=== PATIENT | female | born 1945 | race Caucasian/White ===

== ENCOUNTER 2018-03-04 09:07 | Emergency (ER) | payer MEDICARE ==
[~2018-03-04] VITALS: Ht 165.1 cm; Wt 115.0 kg
[2018-03-04 09:11] VITALS: Ht 165.1 cm; Wt 115.0 kg
[2018-03-04] MEDS ORDERED: LEVO-T100 MCG (09:14)
[2018-03-04] MEDS ORDERED: TOPROL XL50 MG (09:14)
[2018-03-04] MEDS ORDERED: CELEXA40 MG (09:14)
[2018-03-04] MEDS ORDERED: BUSPAR 15 MG TA15 MG (09:14)
[2018-03-04] MEDS ORDERED: MYSOLINE250 MG (09:15)
[2018-03-04] MEDS ORDERED: ZOCOR20 MG (09:15)
[2018-03-04] MEDS ORDERED: GLUCOPHAGE500 MG (09:15)
[2018-03-04 09:41] LABS: BASOPHILS 0.3 % (0-2); EOSINOPHILS 3.9 % (0-7); HEMATOCRIT 50.4 % (36.0-48.0); HEMOGLOBIN 16.3 g/dL (12-16); IMMATURE GRANULOCYTES 0.2 % (0-5); LYMPHOCYTES 32.7 % (15-50); MCH 28.6 pg (26.0-34.0); MCHC 32.3 g/dL (31.0-37.0); MCV 88.6 fL (80.0-100.0); MEAN PLATELET VOLUME 10.5 fL (7.4-10.4); MONOCYTES 10.4 % (2-11); NEUTROPHILS 52.5 % (40-80); PLATELET COUNT 92 10x3/uL (130-400); RBC 5.69 10x6/uL (4.00-5.40); RDW 14.4 % (11.5-14.5); WBC 6.2 10x3/uL (4.8-10.8)
[2018-03-04 10:08] LABS: ALBUMIN 3.4 g/dL (3.4-5.0); ALKALINE PHOSPHATASE 79 U/L (46-116); ALT (SGPT) 24 U/L (10-68); CALC OSMOLALITY 286 mosm/kg (275-300); CALCIUM 9.4 mg/dL (8.5-10.1); CARBON DIOXIDE 33.8 mmol/L (21.0-32.0); CHLORIDE - SERUM 103 mmol/L (98-107); CREATININE - SERUM 1.1 mg/dL (0.6-1.3); GLUCOSE 189 mg/dL (74-106); POTASSIUM - SERUM 3.3 mmol/L (3.5-5.1); PROTEIN - SERUM 7.5 g/dL (6.4-8.2); SODIUM 142 mmol/L (136-145); UREA NITROGEN 10 mg/dL (7-18); eGFR NON AFRICAN AMERICAN 51 mL/min (90-120)
[2018-03-04 10:20] LABS: CKMB 1.3 U/L (0.0-3.6); CREATINE KINASE 86 UL (21-215); PRO BNP 147 pg/mL (0-125)
[2018-03-04 10:21] LABS: TROPONIN-I < 0.017 ng/mL (0.000-0.060)
[2018-03-04 10:56] LABS: PLATELET ESTIMATE DECREASED
[2018-03-04 11:41] VITALS: BP 161/84
== END 2018-03-04 11:42 | disposition home or self-care (01) ==
LOC: D.ER 09:07
PROVIDERS: Family Medicine
DX: R00.2 Palpitations (principal); I10 Essential (primary) hypertension; E11.9 Type 2 diabetes mellitus without complications; Z86.79 Personal history of other diseases of the circulatory system

== ENCOUNTER 2019-03-31 12:47 | Inpatient (IN) | payer MEDICARE ==
[~2019-03-31] VITALS: Ht 165.1 cm; Wt 117.9 kg
[~2019-03-31 12:47] MED LIST: BUSPAR 15 MG TA15 MG PO; CELEXA40 MG PO; GLUCOPHAGE500 MG PO; LEVO-T100 MCG PO; MYSOLINE250 MG PO; TOPROL XL50 MG PO; ZOCOR20 MG
[2019-03-31] MEDS ORDERED: MOBIC7.5 MG PO (12:56)
[2019-03-31] MEDS ORDERED: KLONOPIN1 MG PO (12:57)
[2019-03-31] MEDS ORDERED: VITAMIN D31000 UNI2 PO (12:57)
[2019-03-31] MEDS ORDERED: UNISOM SLEEP AI25 MG PO (12:58)
[2019-03-31] MEDS ORDERED: HYDROCODON-ACE1 EA10 PO (12:58)
--- NOTE | 2019-03-31 13:18 | NUR ---
LABS DRAWN INCLUDING BC X 2
[2019-03-31 13:40] LABS: BASOPHILS 0.2 % (0-2); EOSINOPHILS 0.4 % (0-7); HEMATOCRIT 47.7 % (36.0-48.0); HEMOGLOBIN 15.2 g/dL (12-16); IMMATURE GRANULOCYTES 0.2 % (0-5); LYMPHOCYTES 13.9 % (15-50); MCHC 31.9 g/dL (31.0-37.0); MCV 94.1 fL (80.0-100.0); MEAN PLATELET VOLUME 11.9 fL (7.4-10.4); MONOCYTES 9.4 % (2-11); NEUTROPHILS 75.9 % (40-80); PLATELET COUNT 86 10x3/uL (130-400); RBC 5.07 10x6/uL (4.00-5.40); RDW 14.7 % (11.5-14.5); WBC 10.8 10x3/uL (4.8-10.8)
[2019-03-31 13:53] LABS: ANION GAP 7.6 mmol/L (8-16); BILIRUBIN - TOTAL 0.6 mg/dL (0.2-1.3); CALCIUM 9.1 mg/dL (8.5-10.1); CARBON DIOXIDE 36.3 mmol/L (21.0-32.0); POTASSIUM - SERUM 4.9 mmol/L (3.5-5.1)
[2019-03-31 14:05] VITALS: BP 173/92
[2019-03-31 14:24] LABS: APPEARANCE CLEAR (CLEAR); BACTERIA FEW /hpf (NONE SEEN); BILIRUBIN NEGATIVE (NEGATIVE); COLOR YELLOW (YELLOW); EPITHELIAL CELLS RARE /hpf (0-5); GLUCOSE NEGATIVE (NEGATIVE); KETONE NEGATIVE (NEGATIVE); MUCUS <1+ /lpf (NONE SEEN); NITRITE NEGATIVE (NEGATIVE); PROTEIN NEGATIVE (NEGATIVE); RED CELLS - URINE 0-5 /hpf (0-5); SPECIFIC GRAVITY 1.015 (1.005-1.020); UROBILINOGEN NORMAL (NORMAL)
[2019-03-31 14:59] VITALS: BP 160/83
[2019-03-31 15:20] LABS: PLATELET ESTIMATE DECREASED
--- NOTE | 2019-03-31 16:45 | NUR ---
REPORT TO KARINA MISTRY BY SBAR FORMAT
[2019-03-31 16:50] VITALS: BP 148/64
--- NOTE | 2019-03-31 16:50 | NUR ---
TRANSPORTED TO FLOOR, CONDITION STABLE. IV AZITHROMYCIN INFUSING VIA PUMP UPON TRANSPORT TO FLOOR
--- NOTE | 2019-03-31 16:59 | NUR ---
PT ARRIVES TO ROOM VIA STRETCHER AAO X 4 FAMILY IS AT BEDSIDE. PT REPORTS NAUSEA BUT DENIES VOMITING. TI ALARM IS ON AND WORKING. BED IS IN THE LOWEST POSITION CALL LIGHT AND BEDSIDE TABLE ARE WITHIN REACH. SIDE RAILS X 2. WILL CONT TO MONITOR.
[2019-03-31 17:15] VITALS: BP 161/85; BMI 43.3
--- NOTE | 2019-03-31 17:47 | NUR ---
PT IS RESTING WITH EYES CLOSED. PT IS EASILY AROUSED WITH VERBAL STIMULATION, BUT QUICKLY RETURNS TO A RESTING STATE. PT IS UNABLE TO ANSWER SUICIDE SCREENING APPROPRIATELY AT THIS TIME. WILL CONT TO ATTEMPT. BED IS IN THE LOWEST POSITION. CALL LIGHT AND BED SIDE TABLE ARE WITHIN REACH. SIDE RAILS X 2. TI ALARM IS ON AND WORKING. FAMILY IS AT BEDSIDE.
[2019-03-31 20:00] VITALS: BP 144/80
--- NOTE | 2019-03-31 21:00 | NUR ---
FSBS 133 NO INSULIN GIVEN AT THIS TIME PER SS.
--- NOTE | 2019-03-31 21:30 | NUR ---
HELPED PT TO THE BATHROOM. ASSIST X2. PT UNSTEADY GAIT. WILL GET WALKER FOR THE NEXT TIME.
--- NOTE | 2019-03-31 23:51 | NUR ---
PT RESTING IN BED. ALERT AND ORIENTED NO SIGNS OF DISTRESS. BREATHING EVEN AND UNLABORED. IV SITE RT HAND SL. WILL CONTINUE PLAN OF CARE. FAMILY AT BEDSIDE. BED LOWERED AND LOCKED. CALL LIGHT IN REACH.
[2019-04-01] VITALS: BP 106/57
[2019-04-01 04:00] VITALS: BP 156/97
--- NOTE | 2019-04-01 06:31 | NUR ---
I have reviewed this patient and I concur with the Shift Assessment completed by the Licensed Practical Nurse today this shift.
--- NOTE | 2019-04-01 06:31 | NUR ---
FSBS 120 NO INSULIN GIVEN AT THIS TIME PER SS.
[2019-04-01 06:54] LABS: ALBUMIN 2.6 g/dL (3.4-5.0); ANION GAP 10.1 mmol/L (8-16); BILIRUBIN - TOTAL 0.57 mg/dL (0.2-1.3); CALCIUM 8.8 mg/dL (8.5-10.1); CARBON DIOXIDE 34.3 mmol/L (21.0-32.0); CREATININE - SERUM 0.8 mg/dL (0.6-1.3); POTASSIUM - SERUM 4.4 mmol/L (3.5-5.1); PROTEIN - SERUM 6.4 g/dL (6.4-8.2)
[2019-04-01 06:56] LABS: BASOPHILS 0.2 % (0-2); EOSINOPHILS 1.3 % (0-7); HEMOGLOBIN 14.2 g/dL (12-16); IMMATURE GRANULOCYTES 0.1 % (0-5); LYMPHOCYTES 16.6 % (15-50); MCHC 31.6 g/dL (31.0-37.0); MCV 94.9 fL (80.0-100.0); MEAN PLATELET VOLUME 11.8 fL (7.4-10.4); MONOCYTES 10.8 % (2-11); PLATELET COUNT 92 10x3/uL (130-400); RBC 4.74 10x6/uL (4.00-5.40); RDW 14.8 % (11.5-14.5); WBC 9.8 10x3/uL (4.8-10.8)
--- NOTE | 2019-04-01 09:00 | NUR ---
ALERT AND ORIENTED SITTING UP IN CHAIR. RESP. EVEN AND UNALBORED WITH BREATH SOUNDS DIMINISHED X4 POSTERIOR. TREMORS NOTED WITH TELEMETRY INTACT. FAMILY PRESENT AND INSTRUCTED TO USE CALL LIGHT FOR ASSIST.
[2019-04-01 13:32] VITALS: BP 175/79
[2019-04-01 14:04] VITALS: Ht 165.1 cm; Wt 117.9 kg
[2019-04-01 14:56] LABS: CKMB 0.9 U/L (0.0-3.6); CREATINE KINASE 53 UL (21-215)
[2019-04-01 18:19] VITALS: BP 117/61
--- NOTE | 2019-04-01 21:00 | NUR ---
FSBS 111 NO INSULIN GIVEN PER SS.
[2019-04-01 21:13] VITALS: BP 152/76
--- NOTE | 2019-04-02 00:19 | NUR ---
PT RESTING IN BED. EYES CLOSED. NO SIGNS OF DISTRESS. BREATHING EVEN AND UNLABORED. WILL CONTINUE PLAN OF CARE. CALL LIGHT IN REACH. BED LOWERED AND LOCKED.
[2019-04-02 05:10] VITALS: BP 177/84
--- NOTE | 2019-04-02 06:15 | NUR ---
FSBS 102 NO INSULIN NEEDED AT THIS TIME PER SS.
[2019-04-02 07:09] LABS: BASOPHILS 0.6 % (0-2); EOSINOPHILS 5.3 % (0-7); HEMATOCRIT 46.5 % (36.0-48.0); HEMOGLOBIN 14.2 g/dL (12-16); IMMATURE GRANULOCYTES 0.2 % (0-5); LYMPHOCYTES 20.4 % (15-50); MCH 29.5 pg (26.0-34.0); MCHC 30.5 g/dL (31.0-37.0); MCV 96.5 fL (80.0-100.0); MEAN PLATELET VOLUME 10.5 fL (7.4-10.4); MONOCYTES 11.7 % (2-11); NEUTROPHILS 61.8 % (40-80); PLATELET COUNT 88 10x3/uL (130-400); RBC 4.82 10x6/uL (4.00-5.40)
[2019-04-02 07:18] LABS: WBC 5.5 10x3/uL (4.8-10.8)
[2019-04-02 07:25] LABS: PLATELET ESTIMATE DECREASED
--- NOTE | 2019-04-02 08:04 | NUR ---
ALERT AND ORIENTED X 3. LUNGS CLEAR BILATERALLY IN ALL DE [place]. HEART SOUNDS S1 AND S2 HEARD IN ALL [place]. BOWEL SOUNDS ACTIVE X 4. SKIN INTACT WITHOUT REDNESS. DENIES PAIN. DENIES NEEDS. DAUGHTER IN CHAIR AT BEDSIDE. BED LOW. CALL GAMEZ AND PERSONAL ITEMS IN REACH. WILL CONTINUE TO MONITOR.
[2019-04-02 08:11] LABS: CALC OSMOLALITY 275 mosm/kg (275-300); CALCIUM 8.4 mg/dL (8.5-10.1); CARBON DIOXIDE 28.3 mmol/L (21.0-32.0); CHLORIDE - SERUM 101 mmol/L (98-107); CKMB 1.2 U/L (0.0-3.6); CREATINE KINASE 88 UL (21-215); CREATININE - SERUM 0.8 mg/dL (0.6-1.3); GLUCOSE 92 mg/dL (74-106); POTASSIUM - SERUM 4.6 mmol/L (3.5-5.1); SODIUM 138 mmol/L (136-145); TROPONIN-I 0.131 ng/mL (0.000-0.060); UREA NITROGEN 13 mg/dL (7-18); eGFR NON AFRICAN AMERICAN 74 mL/min (90-120)
[2019-04-02 08:45] VITALS: BP 154/75
--- NOTE | 2019-04-02 09:54 | NUR ---
ALERT AND ORIENTED X 3. SITTING IN CHAIR AT BEDSIDE. LUNGS CLEAR BILATERALLY IN ALL DE [place] CRU[place]. HEART SOUNDS S1 AND S2 HEARD IN ALL DE [place]. BOWEL SOUNDS ACTIVE X 4. SKIN INTACT WITHOUT REDNESS. DENIES PAIN. DENIES NEEDS. DAUGHTER AT BEDSIDE. BED LOW. CALL GAMEZ AND PERSONAL ITEMS IN REACH. WILL CONTINUE TO MONITOR.
[2019-04-02 12:41] VITALS: BP 135/73
--- NOTE | 2019-04-02 13:52 | NUR ---
RESTING IN BED. DENIES PAIN. DENIES NEEDS. WILL CONTINUE TO MONITOR.
--- NOTE | 2019-04-02 15:46 | NUR ---
IV INFILTRATED TO RIGHT HAND. REMOVED WITH TIP INTACT. RESITED TO [facility].
[2019-04-02 16:18] VITALS: BP 117/63
--- NOTE | 2019-04-02 19:15 | NUR ---
RECEIVED CARE FROM DAY NURSE. SITTING UP IN BED WITH DAUGHTER AT SIDE. REPORTS NO NEEDS AT THIS TIME. CALL LIGHT AT SIDE. IV SL TO LEFT FA.
[2019-04-02 19:51] VITALS: BP 127/69
--- NOTE | 2019-04-02 20:03 | MORECARE ---
CASE MANAGEMENT DISCHARGE SUMMARY PATIENT: JAZMINE BALLARD UNIT: [id number] ADM DATE: 03/31/19 AGE: 74 : 44 SEX: F ROOM/BED: D.2232 AUTHOR: KAYLEY PEARCE PHYSICIAN: REFERRING PHYSICIAN: FLAKITA NAIDU MD DATE OF SERVICE: 04/02/19 Discharge Plan Patient Name: JAZMINE BALLARD Facility: [facility]:[place] : 1945 Planned Disposition: Home with Home Health Anticipated Discharge Date: Discharge Date: Expected LOS: Initial Reviewer: [email or web address] Initial Review Date: 04/02/2019 Generated: 04/02/19 9:03 pm Patient Name: JAZMINE BALLARD Page [id number] at 2002 All edits/amendments must be made on the electronic document DICTATION DATE: 04/02/192002 TRAP OPERATOR: MARY 04/02/192002 RPT#: [id number] NC DATE: STATUS: ADM IN [facility] [address] [place] [address] END OF REPORT
--- NOTE | 2019-04-02 20:10 | MORECARE ---
CASE MANAGEMENT DISCHARGE SUMMARY PATIENT: JAZMINE BALLARD UNIT: [id number] ADM DATE: 03/31/19 AGE: 74 : 44 SEX: F ROOM/BED: D.2232 AUTHOR: KAYLEY PEARCE PHYSICIAN: REFERRING PHYSICIAN: FLAKITA NAIDU MD DATE OF SERVICE: 04/02/19 Discharge Plan Patient Name: JAZMINE BALLARD Facility: [facility]:[place] : 1945 Planned Disposition: Home with Home Health Anticipated Discharge Date: Discharge Date: Expected LOS: Initial Reviewer: [email or web address] Initial Review Date: 04/02/2019 Generated: 04/02/19 9:09 pm DCPIA - Discharge Planning Initial Assessment Updated by [email or web address]: Brianna Valentino on 04/02/19 8:05 pm * Is the patient Alert and Oriented? Yes * How many steps to enter\exit or inside your home? ramp/rail * PCP DR HAY * [facility]acy [facility] [address] [facility] * Preadmission Environment Home with Family * ADLs Partial Dependent * Partial ADLs (Assistance needed) Bathing * Equipment Cane Oxygen Walker * Other Equipment [facility] CANE, WALKER AND OLD SHOWER CHAIR * List name and contact numbers for known caregivers / representatives who currently or will assist patient after discharge: ASH SANTOS- [phone] * Verbal permission to speak to the caregivers and representatives has been obtained from the patient. Yes * Community resources currently utilized Home Health * Please name any agencies selected above. [facility] SKILLED NURSE WOULD BE HELPFUL AT DISCHARGE * Additional services required to return to the preadmission environment? Yes * Can the patient safely return to the preadmission environment? Yes * Has this patient been hospitalized within the prior 30 days at any hospital? No Last DP export: 04/02/19 7:03 pm Patient Name: JAZMINE BALLARD Page [phone] at 2009 All edits/amendments must be made on the electronic document DICTATION DATE: 04/02/192008 CLINICAL DATA MANAGEMENT DIRECTOR: MARY 04/02/192008 RPT#: [id number] DC DATE: STATUS: ADM IN [facility] [address] [place] [address] END OF REPORT
--- NOTE | 2019-04-02 20:16 | MORECARE ---
CASE MANAGEMENT DISCHARGE SUMMARY PATIENT: JAZMINE BALLARD UNIT: [id number] ADM DATE: 03/31/19 AGE: 74 : 44 SEX: F ROOM/BED: D.2232 AUTHOR: RAMSES,DOC PHYSICIAN: REFERRING PHYSICIAN: FLAKITA NAIDU MD DATE OF SERVICE: 04/02/19 Discharge Plan Patient Name: JAZMINE BALLARD Facility: [facility]:[place] : 1945 Planned Disposition: Home with Home Health Anticipated Discharge Date: Discharge Date: Expected LOS: Initial Reviewer: [email or web address] Initial Review Date: 04/02/2019 Generated: 04/02/19 9:16 pm Comments DCP- Discharge Planning Updated by [email or web address]: Brianna Valentino on 04/02/19 7:[address] CM MET WITH THE PATIENT IN HER ROOM. CM INTRODUCED SELF AND EXPLAINED MY ROLE. PATIENT'S DAUGHTER AND SON IN LAW WERE AT THE BEDSIDE. PATIENT STATED THEY LIVE ME. PATIENT GAVE PERMISSION TO DSCUSS DISCHARGE PLANNING WITH THEM PRESENT AT THE BEDSIDE. THE PATIENT LIVES IN HER OWN HOME. SHE HAS A RAMP W/ RAILINGS TO ENTER. SHE IS PRESENTLY RECEIVING PHYSICAL THERAPY W/ [facility]. WE DISCUSSED POSSIBLE CUSTODIAL AFTER DISCHARGE. HER DAUGHTER FELT THAT WOULD BE HELPFUL. PATIENT DID AGREE. SHE DOES NOT LIKE TOO MANY PEOPLE IN HER HOME. DME- CANE. WALKER OXYGEN, STATIONARY UNIT AND AN OLD SHOWER CHAIR. SHE STATES SHE DOES HAVE DIFFICULTY GETTING INTO THE SHOWER. PH[facility]ACY- [facility] [address] [facility] [employer]. PHONE NUMBER [phone]. THE PATIENT WILL HAVE TRANSPORTATION TO HOME. CM TO FOLLOW TO ASSIST W/ DISCHARGES. DCPIA - Discharge Planning Initial Assessment Updated by [id number]: Brianna Valentino on 04/02/19 8:05 pm * Is the patient Alert and Oriented? Yes * How many steps to enter\\exit or inside your home? ramp/rail * PCP DR HAY * Pharmacy [facility] [address] * Preadmission Environment Home with Family * ADLs Partial Dependent * Partial ADLs (Assistance needed) Bathing * Equipment Cane Oxygen Walker * Other Equipment HAS OXYGEN FROM [facility] HAS CANE, WALKER AND OLD SHOWER CHAIR * List name and contact numbers for known caregivers / representatives who currently or will assist patient after discharge: ASH WOLF- DAUGHTER- [phone] * Verbal permission to speak to the caregivers and representatives has been obtained from the patient. Yes * Community resources currently utilized Home Health * Please name any agencies selected above. [facility] SKILLED NURSE WOULD BE HELPFUL AT DISCHARGE * Additional services required to return to the preadmission environment? Yes * Can the patient safely return to the preadmission environment? Yes * Has this patient been hospitalized within the prior 30 days at any hospital? No Last DP export: 04/02/19 7:10 pm Patient Name: JAZMINE BALLARD Page [phone] at 2016 All edits/amendments must be made on the electronic document DICTATION DATE: 04/02/192015 METAL RECLAMATION KETTLE TENDER: MARY 04/02/192015 RPT#: [id number] DC DATE: STATUS: ADM IN [facility] [address] [place] [address] END OF REPORT
[2019-04-03 04:54] VITALS: BP 150/82
[2019-04-03 07:02] LABS: BASOPHILS 0.4 % (0-2); HEMATOCRIT 46.4 % (36.0-48.0); HEMOGLOBIN 14.5 g/dL (12-16); IMMATURE GRANULOCYTES 0.2 % (0-5); LYMPHOCYTES 24.9 % (15-50); MCH 29.8 pg (26.0-34.0); MCHC 31.3 g/dL (31.0-37.0); MCV 95.3 fL (80.0-100.0); MONOCYTES 10.8 % (2-11); NEUTROPHILS 58.7 % (40-80); RBC 4.87 10x6/uL (4.00-5.40); RDW 14.5 % (11.5-14.5)
[2019-04-03 07:04] LABS: PLATELET COUNT 111 10x3/uL (130-400)
[2019-04-03 07:35] LABS: CALC OSMOLALITY 280 mosm/kg (275-300); CALCIUM 8.7 mg/dL (8.5-10.1); CHLORIDE - SERUM 99 mmol/L (98-107); CKMB 1.1 U/L (0.0-3.6); CREATINE KINASE 71 UL (21-215); CREATININE - SERUM 0.9 mg/dL (0.6-1.3); GLUCOSE 101 mg/dL (74-106); POTASSIUM - SERUM 4.1 mmol/L (3.5-5.1); SODIUM 141 mmol/L (136-145); UREA NITROGEN 12 mg/dL (7-18); eGFR NON AFRICAN AMERICAN 65 mL/min (90-120)
[2019-04-03 07:36] LABS: CARBON DIOXIDE 35.6 mmol/L (21.0-32.0); TROPONIN-I 0.115 ng/mL (0.000-0.060)
[2019-04-03 07:47] VITALS: BP 149/68
--- NOTE | 2019-04-03 09:00 | NUR ---
PT RESTING IN RECLINER AT BEDSIDE NO SIGNS OF DISTRESS NOTED STATED "I REST BETTER SITTING UP IN THE CHAIR" NO NEEDS EXPRESSED AT THIS TIME FAMILY AT BEDSIDE CL IN REACH
[2019-04-03] MEDS ORDERED: MUCINEX600 MG PO (10:14)
[2019-04-03] MEDS ORDERED: FLORAJEN3 CAPS460 MG PO (10:14)
[2019-04-03] MEDS ORDERED: ZITHROMAX500 MG PO (10:15)
[2019-04-03] MEDS ORDERED: OMNICEF300 MG PO (10:15)
--- NOTE | 2019-04-03 10:48 | CN ---
PATIENT NAME:JAZMINE BALLARD MEDICAL RECORD: [id number] : 43 LOCATION:D.MS [place]2232 ADMIT DATE: 03/31/19 ACCOUNT: [id number] CONSULTING PHYSICIAN: MACARENA CARDONA MD REFERRING PHYSICIAN: FLAKITA NAIDU MD DATE OF CONSULTATION: 04/02/2019 HISTORY OF PRESENT ILLNESS: A 74-year-old female with known history of coronary artery disease, status post intervention via Dr. Dawkins. She had actually been doing well from a cardiovascular standpoint, but began feeling poorly with dyspnea and chest tightness, was found to have pneumonitis. Subsequently was found to have elevated cardiac enzymes consistent with NSTEMI. We are asked to see her concerning her cardiovascular status. PAST MEDICAL HISTORY: Includes: 1. History of hypertension. 2. Hyperlipidemia. 3. Coronary artery disease as described above. 4. Obstructive sleep apnea. 5. Reactive airway disease. ALLERGIES: IODINE AND ASPIRIN. MEDICATIONS: Typically include metformin 500 p.o. b.i.d., Synthroid 100 mcg every day, Mobic 15 mg p.o. daily, Klonopin 1 mg t.i.d., primidone 250 b.i.d., Celexa 40 every day. SOCIAL HISTORY: Nonsmoker, nondrinker. Easily able to take care of all her ADLs. REVIEW OF SYSTEMS: The patient reports easy bruising but reports no swollen glands. The patient reports no fever, no night sweats, no significant weight gain, no significant weight loss. No significant exercise tolerance. The patient reports no dry eyes, no irritation, no vision change. Patient reports no difficulty hearing and no ear pain. Patient reports no frequent nose bleeds or nose and sinus problems. Patient reports on arm pain on exertion. No shortness of breath while lying down. No history of heart murmur. Patient reports no cough, no wheezing or coughing up blood. Patient reports no abdominal pain, no vomiting. Normal appetite. No diarrhea and not vomiting blood. No nausea and no constipation. Patient reports no incontinence. No difficulty urinating. No hematuria. No increased frequency. Patient reports no muscle aches. No weakness, no arthralgias, no back pain. No swelling of the extremities. Patient reports no abnormal mole, no jaundice, no rashes. Reports no loss of consciousness. No weakness and no numbness. No seizures, dizziness, or headaches. The patient reports no depression, no sleep disturbance, feeling safe in a relationship and no alcohol abuse. Patient reports on fatigue. Reports no runny nose or sinus pressure. No itching, no hives, and no frequent sneezing. PHYSICAL EXAMINATION: GENERAL: Pleasant female, in no acute distress, appears stated age. VITAL SIGNS: Blood pressure 154/74, pulse 71 and regular. HEENT: Normocephalic, atraumatic. NECK: No bruits are noted. HEART: Regular. No obvious gallops. CONSULT REPORT [id number] JAZMINE BALLARD LUNGS: Decreased air excursion. ABDOMEN: Soft, nontender. EXTREMITIES: Pulses are 2+ with no edema. IMPRESSION: Xap-FY-oggjcoxpm myocardial infarction, difficult to say if this is type 1 versus type 2 with increased demand secondary to underlying pneumonitis. We will let recover from current admitting illness. Will need evaluation of coronary anatomy at some point. TRANSINT:[id number] Voice Confirmation ID: [id number] DOCUMENT ID: [id number] MACARENA CARDONA MD at 1048 CC: [id number] DICTATION DATE: 04/02/19 1235 POST DOCTORAL FELLOW: 04/02/19 1424 ADM IN [facility] [address] [place] [id number]
--- NOTE | 2019-04-03 12:30 | NUR ---
IV DC WITH CATH INTACT, DC INSTRUICTIONS GIVEN PT VERABLIZES UNDERSTANDING NO CONCERNS EXPRESSED, LEAVING VIA WHEELCHAIR VIA HOSPITAL STAFF VIA PRIVATE VECHILE IN STABLE CONDITON
--- NOTE | 2019-04-03 14:08 | MORECARE ---
CASE MANAGEMENT DISCHARGE SUMMARY PATIENT: JAZMINE BALLARD UNIT: [id number] ADM DATE: 03/31/19 AGE: 74 : 44 SEX: F ROOM/BED: D.2232 AUTHOR: RAMSES,DOC PHYSICIAN: REFERRING PHYSICIAN: FLAKITA NAIDU MD DATE OF SERVICE: 04/03/19 Discharge Plan Patient Name: JAZMINE BALLARD Facility: [facility]:[place] : 1945 Planned Disposition: Home with Home Health Anticipated Discharge Date: Discharge Date: 04/03/2019 Expected LOS: Initial Reviewer: [email or web address] Initial Review Date: 04/02/2019 Generated: 04/03/19 3:07 pm Comments DCP- Discharge Planning Updated by [id number]: Brianna Valentino on 04/02/19 7:[address] CM MET WITH THE PATIENT IN HER ROOM. CM INTRODUCED SELF AND EXPLAINED MY ROLE. PATIENT'S DAUGHTER AND SON IN LAW WERE AT THE BEDSIDE. PATIENT STATED THEY LIVE ME. PATIENT GAVE PERMISSION TO DSCUSS DISCHARGE PLANNING WITH THEM PRESENT AT THE BEDSIDE. THE PATIENT LIVES IN HER OWN HOME. SHE HAS A RAMP W/ RAILINGS TO ENTER. SHE IS PRESENTLY RECEIVING PHYSICAL THERAPY W/ [facility]. WE DISCUSSED POSSIBLE [facility] AFTER DISCHARGE. HER DAUGHTER FELT THAT WOULD BE HELPFUL. PATIENT DID AGREE. SHE DOES NOT LIKE TOO MANY PEOPLE IN HER HOME. DME- CANE. WALKER OXYGEN, STATIONARY UNIT AND AN OLD SHOWER CHAIR. SHE STATES SHE DOES HAVE DIFFICULTY GETTING INTO THE SHOWER. PHARMACY- [facility] [address] [facility] [employer]. PHONE NUMBER [phone]. THE PATIENT WILL HAVE TRANSPORTATION TO HOME. CM TO FOLLOW TO ASSIST W/ DISCHARGES. DCPIA - Discharge Planning Initial Assessment Updated by [id number]: Brianna Valentino on 04/02/19 8:05 pm * Is the patient Alert and Oriented? Yes * How many steps to enter\\exit or inside your home? ramp/rail * PCP DR HAY * Pharmacy [facility] [address] * Preadmission Environment Home with Family * ADLs Partial Dependent * Partial ADLs (Assistance needed) Bathing * Equipment Cane Oxygen Walker * Other Equipment HAS OXYGEN FROM [facility] HAS CANE, WALKER AND OLD SHOWER CHAIR * List name and contact numbers for known caregivers / representatives who currently or will assist patient after discharge: ASH WOLF- DAUGHTER- [phone] * Verbal permission to speak to the caregivers and representatives has been obtained from the patient. Yes * Community resources currently utilized Home Health * Please name any agencies selected above. [facility] SKILLED NURSE WOULD BE HELPFUL AT DISCHARGE * Additional services required to return to the preadmission environment? Yes * Can the patient safely return to the preadmission environment? Yes * Has this patient been hospitalized within the prior 30 days at any hospital? No Last DP export: 04/02/19 7:16 pm Patient Name: JAZMINE BALLARD Page [phone] at 1408 All edits/amendments must be made on the electronic document DICTATION DATE: 04/03/191406 REGULATORY ASSISTANT: MARY 04/03/19 1407 RPT#: [id number] DC DATE:04/03/19 STATUS: DIS IN [facility] [address] [place] [address] END OF REPORT
--- NOTE | 2019-04-05 09:00 | EC ---
PATIENT:JAZMINE BALLARD DATE OF SERVICE: 03/31/19 SEX: F MEDICAL RECORD: [id number] DATE OF : 43 LOCATION:D.MS Catherine AGE OF PATIENT: 74 ADMISSION DATE: 03/31/19 REFERRING PHYSICIAN: INTERPRETING PHYSICIAN: MACARENA CARDONA MD ECHOCARDIOGRAM REPORT ECHO CHARGES 4 ECHO COMPLETE Date: 04/02/19 CLINICAL DIAGNOSIS: CHF ECHOCARDIOGRAPHIC MEASUREMENTS (adult normal given) AC root (d.<3.7cm) 3.2 cm LV Septum d (<1.2 cm> 0.9 cm Valve Excursion 1.7 cm LV Septum (systole) 1.1 cm Left Atria (s.<4.0cm> 3.3 cm LVPW d(<1.2cm) 1.0 cm RV (d.<2.3cm) 3.2 cm LVPW (sytole) 1.4 cm LV diastole(<5.6CM) 5.9 cm MV E-F(>70mm/sec) cm LV systole 4.5 cm LVOT Diameter 1.7 cm MV exc.(>10mm) cm Est.ejection fraction (50-75%) % DOPPLER: LVIT cm/sec A 59 cm/sec E 60 cm/sec LA cm/sec RVSP 16.9 mmHg LVOT 49 cm/sec AOP1/2T m/s Asc. Ao 89 cm/sec RVOT 71 cm/sec RA cm/sec PA 88 cm/sec AV Gradient Peak 3.2 mmHg AV Mean 2.0 mmHg AV Area 1.1 cm MV Gradient Peak 2.5 mmHg MV Mean 1.3 mmHg MV Area cm COMMENTS: Free Lance Artist: Julius VINES Assistant Professor Of English: 3 Dr. Sun TAPE# PACS Pericardial Effusion N DATE OF SERVICE: Adequate 2-D echo, color-flow and spectral Doppler, and M-mode. LVH is present. LV internal dimensions are normal. LV appears to be mildly globally hypo with reduced EF. Estimated EF is 40% to 45%. Aortic valve sclerosis without stenosis by Doppler interrogation. Left atrium is normal. Mitral valve shows no prolapse. Vtjlu-ua-qohn MR. Right-sided chambers are grossly normal. Mild TR. ECHOCARDIOGRAM REPORT [id number] JAZMINE BALLARD TRANSINT:[id number] Voice Confirmation ID: [id number] DOCUMENT ID: [id number] MACARENA CARDONA MD at 0900 CC: [id number] DICTATION DATE: 04/03/19 1019 CORN SHUCKER: 04/03/19 1322 DIS IN 04/03/19 [facility] [address] [facility] [place] [address]
== END 2019-04-03 12:33 | disposition home health service (06) | DRG 193 ==
LOC: D.ER 12:47 → D.MS 16:34
PROVIDERS: Family Medicine; ADMIT Internal Medicine Nephrology; ATTEND Internal Medicine Nephrology
DX: J18.9 Pneumonia, unspecified organism (principal); I21.4 Non-ST elevation (NSTEMI) myocardial infarction; Z68.41 Body mass index [BMI] 40.0-44.9, adult; I25.10 Atherosclerotic heart disease of native coronary artery without angina pectoris; I10 Essential (primary) hypertension; J45.909 Unspecified asthma, uncomplicated; F41.9 Anxiety disorder, unspecified; E66.9 Obesity, unspecified

== ENCOUNTER 2019-05-09 22:10 | Inpatient (IN) | payer MEDICARE ==
[~2019-05-09] VITALS: Ht 165.1 cm; Wt 127.0 kg
[~2019-05-09 22:10] MED LIST changes: +FLORAJEN3 CAPS460 MG PO; +HYDROCODON-ACE1 EA10 PO; +KLONOPIN1 MG PO; +MOBIC7.5 MG PO; +MUCINEX600 MG PO; +OMNICEF300 MG PO; +UNISOM SLEEP AI25 MG PO; +VITAMIN D31000 UNI2 PO; +ZITHROMAX500 MG PO
--- NOTE | 2019-05-09 22:19 | NUR ---
TRAUMA BAND [id number]
[2019-05-09 23:39] LABS: HEMATOCRIT 44.4 % (36.0-48.0); HEMOGLOBIN 13.9 g/dL (12-16); MCH 30.5 pg (26.0-34.0); MCHC 31.3 g/dL (31.0-37.0); MCV 97.4 fL (80.0-100.0); MEAN PLATELET VOLUME 10.6 fL (7.4-10.4); NEUTROPHILS 68.1 % (40-80); PLATELET COUNT 91 10x3/uL (130-400); RBC 4.56 10x6/uL (4.00-5.40); RDW 13.1 % (11.5-14.5)
[2019-05-09 23:40] LABS: LYMPHOCYTES 21.5 % (15-50)
[2019-05-09 23:44] LABS: ANION GAP 7.8 mmol/L (8-16); BILIRUBIN - TOTAL 0.27 mg/dL (0.2-1.3); CALCIUM 8.7 mg/dL (8.5-10.1); CARBON DIOXIDE 38.3 mmol/L (21.0-32.0); CREATININE - SERUM 0.9 mg/dL (0.6-1.3); POTASSIUM - SERUM 4.1 mmol/L (3.5-5.1); PROTEIN - SERUM 6.7 g/dL (6.4-8.2)
--- NOTE | 2019-05-09 23:50 | NUR ---
REPOSITIONED ON LEFT SIDE
[2019-05-09 23:51] LABS: APPEARANCE HAZY (CLEAR); BILIRUBIN NEGATIVE (NEGATIVE); COLOR YELLOW (YELLOW); GLUCOSE NEGATIVE (NEGATIVE); KETONE NEGATIVE (NEGATIVE); NITRITE NEGATIVE (NEGATIVE); PROTEIN 3+ mg/dL (NEGATIVE); SPECIFIC GRAVITY 1.025 (1.005-1.020); UROBILINOGEN NORMAL (NORMAL)
[2019-05-09 23:56] LABS: BACTERIA FEW /hpf (NONE SEEN); EPITHELIAL CELLS 0-5 /hpf (0-5); RED CELLS - URINE 0-5 /hpf (0-5); WHITE CELLS - URINE 0-5 /hpf (0-5)
[2019-05-10] VITALS: BP 144/71
--- NOTE | 2019-05-10 00:40 | NUR ---
RESTING IN ROOM QUIETLY RESP EVEN AND UNLABORED
[2019-05-10 01:46] LABS: CKMB 0.9 U/L (0.0-3.6); TROPONIN-I 0.018 ng/mL (0.000-0.060)
--- NOTE | 2019-05-10 02:17 | NUR ---
ASSISTED TO BEDSIDE COMODE
[2019-05-10] MEDS ORDERED: UNISOM SLEEP AI25 MG PO (02:38)
[2019-05-10 02:45] VITALS: BP 121/65; BMI 46.6
--- NOTE | 2019-05-10 02:45 | NUR ---
PT ARRIVED TO FLOOR VIA STRETCHER. ALERT AND ORIENTED, WITHOUT DISTRESS. FAMILY AT BEDSIDE. STATES SHE HAD BEEN IN BATHROOM AND FELT VERY WEAK AND FELL. DENIES PAIN AT THIS TIME. STATES SHE HAS HAD INCREASED WEAKNESS LATELY, DENIES BEING MORE SOB UNLESS WITHOUT O2. O2 2L/NC. LUNG SOUNDS DIMINISHED BILAT LOWER LOBES. TI ON. PT REQUESTED AND GIVEN ICE WATER. DENIES OTHER NEEDS AT THIS TIME. CL IN REACH, WILL CTM
--- NOTE | 2019-05-10 08:45 | NUR ---
ROUSES TO VERBAL STIMULATION. ALERT AND ORIENTED X3. DAUGHTER AT BEDSIDE. LUNGS ARE CLEAR BUT DIMINISHED THROUGHOUT. NO COUGH NOTED. SKIN IS INTACT WTIHOUT REDNESS. SL TO LEFT AC IS PATENT WTHOUT REDNESS AT INSERTION SITE. EDEMA NOTED TO BILATERAL LOWER EXTREMETIES PROBALBLY 2 PLUS. SOCKS CUT TO DECREASE STRICTURE. DENIES NEEDS.
[2019-05-10 08:48] VITALS: BP 141/70
--- NOTE | 2019-05-10 09:30 | NUR ---
SLEPT THRU BREAKFAST. REFUSED MEAL. FAMILY AT BEDSIDE.
--- NOTE | 2019-05-10 10:00 | NUR ---
UP TO [facility] WITH ONE PERSON ASSIST. VOIDED WITHOUT DIFFICULTY. ALMOST COLLAPSED BEFORE BACK TO BED. KNEES JUST GAVE OUT SHE SAID.
[2019-05-10 13:47] VITALS: BP 135/69
--- NOTE | 2019-05-10 15:00 | NUR ---
SPOKE WITH NUBIA NERI RE NO URINATION ALL DAY. [address] USING STERILE TECHNIQUE. ENTIRE CONTENTS OF KIT UTILIZED EXCEPT COLLECTION CONTAINER. IMMEDIATE RETURN OF 400CC CLEAR YELLOW URINE.
[2019-05-10 16:44] VITALS: BP 119/69
--- NOTE | 2019-05-10 18:45 | NUR ---
FSBS AT 1700 WAS 127. NO COVERAGE REQUIRED. ATE ABOUT HALF OF SUPPER. NO CHANGES NOTED DENIES NEEDS.
--- NOTE | 2019-05-10 19:05 | NUR ---
A&O X 4. PT APPEARS WEAK AND SHAKY. REPORTS DISCOMFORT IN RIGHT HIP. WILL CONTINUE TO MONITOR.
[2019-05-10 22:24] VITALS: BP 123/58
[2019-05-11 03:48] VITALS: BP 138/61
--- NOTE | 2019-05-11 05:00 | NUR ---
I have reviewed this patient and I concur with the Shift Assessment completed by the Licensed Practical Nurse today this shift.
[2019-05-11 06:49] VITALS: BP 130/76
[2019-05-11 07:19] LABS: BASOPHILS 0.4 % (0-2); EOSINOPHILS 4.2 % (0-7); HEMATOCRIT 41.5 % (36.0-48.0); HEMOGLOBIN 12.2 g/dL (12-16); IMMATURE GRANULOCYTES 0.2 % (0-5); LYMPHOCYTES 34.8 % (15-50); MCHC 29.4 g/dL (31.0-37.0); MCV 98.6 fL (80.0-100.0); MEAN PLATELET VOLUME 10.9 fL (7.4-10.4); MONOCYTES 10.3 % (2-11); NEUTROPHILS 50.1 % (40-80); PLATELET COUNT 99 10x3/uL (130-400); RBC 4.21 10x6/uL (4.00-5.40)
[2019-05-11 07:25] LABS: WBC 4.7 10x3/uL (4.8-10.8)
[2019-05-11 07:42] LABS: ANION GAP 7.7 mmol/L (8-16); CALCIUM 8.4 mg/dL (8.5-10.1); CARBON DIOXIDE 38.1 mmol/L (21.0-32.0); CREATININE - SERUM 0.8 mg/dL (0.6-1.3); POTASSIUM - SERUM 3.8 mmol/L (3.5-5.1)
--- NOTE | 2019-05-11 07:58 | NUR ---
AWAKE AND ALERT. ORIENTED X3. REPORTS FEELING BETTER TODAY. DAUGHTER AT BEDSIDE. LUNGS ARE CLEAR BILATERALLY, NO COUGH NOTED. SKIN IS INTACT WITHOUT REDNESS. SL TO LEFT AC IS PATENT WTIHOUT REDNESS AT INSERTION SITE. THOMPSON PATENT WITH CLEAR YELLOW URINE. DENIES NEEDS. DAUGHTER WENT DOWN AND GOT HER A SAUSAGE BISCUIT SHE WAS VERY HUNGRY.
--- NOTE | 2019-05-11 09:30 | NUR ---
ATTEMPTED TO GET OOB FOR TIOLET. PT AND NURSING UNALBE TO GET HER TO STAND AND TRANSFER. REPOSITIONED IN BED FOR COMFORT. BED PADDED. FAMILY AT BEDSIDE.
[2019-05-11 09:37] VITALS: BP 135/61
[2019-05-11 10:17] VITALS: BP 135/61
[2019-05-11 11:02] LABS: PLATELET ESTIMATE DECREASED
[2019-05-11 12:34] VITALS: BMI 46.5
--- NOTE | 2019-05-11 12:40 | NUR ---
OFF UNIT VIA STRETCHER FOR MRI.
--- NOTE | 2019-05-11 13:00 | NUR ---
RETURNED FROM MRI. REQUESTED AND GIVEN ONE HYDROCODONE PO FOR C/O BACK PAIN LEVEL 7. WILL MONITOR.
--- NOTE | 2019-05-11 16:07 | NUR ---
Rehab Note- Continue to follow at this time. THe patient had MRI of knee today with findings. Also requiring oxygen @ 2L/NC at this time & pulse Ox noted 90%. Discussed with AUBREY Cruz & stated she would notify HALLE Rubi. Will conitnue to follow. WIll accept to [facility]patient [facility] when medical work up completed & medically stable. Will continue to follow at this time. Thank you for this referral! Johnna Gallo RN Clinical Liaison, [facility] Rehab
[2019-05-11 16:24] VITALS: BP 146/76
--- NOTE | 2019-05-11 17:00 | NUR ---
FSBS 96. NO COVERAGE REQUIRED.
--- NOTE | 2019-05-11 18:44 | NUR ---
ATE ABOUT HALF OF SUPPER. NO CHANGES NOTED. DENIES NEEDS. REPOSITIONED IN BED FOR COMFORT.
--- NOTE | 2019-05-11 19:45 | NUR ---
A&O X 4, DENIES PAIN AT THIS TIME. FSBS 130. FAMILY AT BEDSIDE. REPORTS CONTINUED DECREASED APPETITE. IV TO LEFT AC IS SALINE LOCKED AND PATENT. DENIES NEEDS AT THIS TIME
[2019-05-11 21:49] VITALS: BP 114/66
--- NOTE | 2019-05-11 22:06 | NUR ---
TELEMETRY CALLED, WAS INFORMED THERE ARE NO AVAILABLE MONITORS.
[2019-05-12 02:49] VITALS: BP 152/73
--- NOTE | 2019-05-12 03:26 | NUR ---
I have reviewed this patient and I concur with the Shift Assessment completed by the Licensed Practical Nurse today this shift.
[2019-05-12 04:45] LABS: BASOPHILS 0.2 % (0-2); EOSINOPHILS 4.7 % (0-7); HEMATOCRIT 42.5 % (36.0-48.0); IMMATURE GRANULOCYTES 0.2 % (0-5); MCH 29.8 pg (26.0-34.0); MCHC 30.6 g/dL (31.0-37.0); MCV 97.5 fL (80.0-100.0); MONOCYTES 11.2 % (2-11); NEUTROPHILS 54.7 % (40-80); PLATELET COUNT 102 10x3/uL (130-400); RBC 4.36 10x6/uL (4.00-5.40); RDW 13.7 % (11.5-14.5); WBC 5.1 10x3/uL (4.8-10.8)
[2019-05-12 04:59] LABS: ANION GAP 6.2 mmol/L (8-16); CALCIUM 8.6 mg/dL (8.5-10.1); CARBON DIOXIDE 38.7 mmol/L (21.0-32.0); CREATININE - SERUM 0.8 mg/dL (0.6-1.3); POTASSIUM - SERUM 3.9 mmol/L (3.5-5.1)
[2019-05-12 06:29] VITALS: BP 138/62
--- NOTE | 2019-05-12 08:37 | NUR ---
PT RESTING IN BED WITH EYES CLOSED. FAMILY AT BEDSIDE. AROUSES TO NAME BEING CALLED. FAMILY REPORTS PT IS NOT A MORNING PERSON AND SOMETIMES DIFFICULT TO AWAKEN. PT DOES AROUSE TO TAKE MEDICATIONS AND DOES COMMUNICATE WITH STAFF AND FAMILY. SALINE LOC TO LEFT AC, SITE WITHOUT REDNESS OR EDEMA. O2 @ 2L NC IN PLACE. F/C PATENT TO GRAVITY DRAINING YELLOW URINE. DENIES PAIN AT THIS TIME. DENIES FURTHER NEEDS AT THIS TIME. CL WITHIN REACH. ENCOURAGED TO CALL WITH NEEDS. CONTINUE POC
[2019-05-12 10:26] VITALS: BP 144/65
--- NOTE | 2019-05-12 12:41 | MORECARE ---
CASE MANAGEMENT DISCHARGE SUMMARY PATIENT: JAZMINE BALLARD UNIT: [id number] ADM DATE: 05/10/19 AGE: 74 : 44 SEX: F ROOM/BED: D.2201 AUTHOR: RAMSESDOC PHYSICIAN: REFERRING PHYSICIAN: FLAKITA NAIDU MD DATE OF SERVICE: 05/12/19 Discharge Plan Patient Name: JAZMINE BALLARD Facility: [facility]:[place] : 1945 Planned Disposition: Inpatient Rehab Anticipated Discharge Date: Discharge Date: Expected LOS: Initial Reviewer: [email or web address] Initial Review Date: 05/10/2019 Generated: 05/12/19 1:41 pm Comments DCP- Discharge Planning Updated by [id number]: Kathleen Ly on 05/12/19 11:[address] Patient Name: JAZMINE BALLARD Admission Status: ER Accout number: [id number] Admission Date: 05-10-2019 : 1945 Admission Diagnosis: Attending: FLAKITA NAIDU Current LOS: 2 Anticipated DC Date: Planned Disposition: Inpatient Rehab Primary Insurance: MEDICARE A & B Discharge Planning Comments: CM met with patient to complete initial dc planning assessment. CM educated patient on the CM role and verbal consent given by patient to complete assessment. Patient lives at home with her daughter and spouse where she has 24/7 help/care. She is assisted with ambulation, bathing, medications, toileting. At discharge patient plans to go to inpatient rehab at [facility] and feels this is a safe discharge. She has a Nebulizer, home O2 concentrator, walker, wheelchair, shower chair. Patient states she needs portable O2, she uses [employer]. Patient denied known discharge needs at this time. CM will continue to follow and will assist as needed with dc plans/needs. Claim Review Medical Director: Kathleen Ly DCPIA - Discharge Planning Initial Assessment Updated by [email or web address]: Kathleen Ly on 05/12/19 12:37 pm * Is the patient Alert and Oriented? Yes * How many steps to enter\exit or inside your home? * PCP SATNAM * [facility] * Preadmission Environment Home with Family * ADLs Partial Dependent * Partial ADLs (Assistance needed) Ambulation Bathing Dressing Medication Management Toileting * Equipment Nebulizer Oxygen Rolling Walker Shower Chair Walker Wheelchair * List name and contact numbers for known caregivers / representatives who currently or will assist patient after discharge: ASH WOLF [phone] * Verbal permission to speak to the caregivers and representatives has been obtained from the patient. Yes * Community resources currently utilized Other * Please name any agencies selected above. 20/04 CARE/ HELP * Additional services required to return to the preadmission environment? Yes * Can the patient safely return to the preadmission environment? Yes * Has this patient been hospitalized within the prior 30 days at any hospital? No Patient Name: JAZMINE BALLARD Page [phone] at 1241 All edits/amendments must be made on the electronic document DICTATION DATE: 05/12/19 1241 AMMONIUM SULFATE OPERATOR: MARY 05/12/19 1241 RPT#: [id number] MT DATE: STATUS: ADM IN [facility] [address] [place] [address] END OF REPORT
[2019-05-12 12:43] VITALS: BP 144/67
[2019-05-12 18:35] VITALS: BP 151/64
[2019-05-12 20:59] VITALS: BP 153/78
--- NOTE | 2019-05-12 22:45 | NUR ---
A&O X 4. SUPINE IN BED. THOMPSON IN DRAINING CLEAR YELLOW URINE. REPORTS RESTLESSNESS. REFUSED PRN ANIETY MEDICATION. FAMILY MEMBER AT BEDSIDE, DENIES FURTHER NEEDS AT THIS TIME.
[2019-05-13 01:02] VITALS: BP 137/69
--- NOTE | 2019-05-13 03:04 | NUR ---
I have reviewed this patient and I concur with the Shift Assessment completed by the Licensed Practical Nurse today this shift.
[2019-05-13 04:55] VITALS: BP 140/74
[2019-05-13 05:09] LABS: BASOPHILS 0.2 % (0-2); EOSINOPHILS 5.3 % (0-7); HEMATOCRIT 39.9 % (36.0-48.0); HEMOGLOBIN 12.2 g/dL (12-16); IMMATURE GRANULOCYTES 0.2 % (0-5); LYMPHOCYTES 28.7 % (15-50); MCH 29.5 pg (26.0-34.0); MCHC 30.6 g/dL (31.0-37.0); MCV 96.6 fL (80.0-100.0); MEAN PLATELET VOLUME 10.3 fL (7.4-10.4); MONOCYTES 11.3 % (2-11); NEUTROPHILS 54.3 % (40-80); PLATELET COUNT 102 10x3/uL (130-400); RBC 4.13 10x6/uL (4.00-5.40); RDW 13.5 % (11.5-14.5); WBC 4.4 10x3/uL (4.8-10.8)
[2019-05-13 05:29] LABS: ANION GAP 4.9 mmol/L (8-16); CALCIUM 8.3 mg/dL (8.5-10.1); CARBON DIOXIDE 39.7 mmol/L (21.0-32.0); CREATININE - SERUM 0.8 mg/dL (0.6-1.3); POTASSIUM - SERUM 3.6 mmol/L (3.5-5.1)
[2019-05-13 07:45] VITALS: Ht 165.1 cm; Wt 127.0 kg
--- NOTE | 2019-05-13 07:56 | NUR ---
PT RESTING IN BED WITH EYES CLOSED. 02 @ 2L NC IN PLACE. OPENS EYES WITH NAME CALLED. DENIES PAIN AT THIS TIME. SALINE LOC TO LEFT AC INTACT, SITE WITHOUT REDNESS OR EDEMA. F/C PATENT TO GRAVITY. FAMILY AT BEDSIDE. DENIES FURTHER NEEDS AT THIS TIME. CL WITHIN REACH. ENCOURAGED TO CALL WITH NEEDS. CONTINUE POC
[2019-05-13 08:07] VITALS: BP 128/83
--- NOTE | 2019-05-13 12:51 | NUR ---
Nutrition follow-up: Diet: ADA consistent CHO PO Intake ~50% average of meals labs reviewed Wt: 280# No BM since admit; will discuss with nursing. RDN following.
[2019-05-13 13:13] VITALS: BP 153/79
[2019-05-13] MEDS ORDERED: LOVENOX40 MG/0.4 SC (15:13)
[2019-05-13] MEDS ORDERED: ROBAXIN500 MG PO (15:13)
[2019-05-13] MEDS ORDERED: KLONOPIN0.5 MG PO (15:14)
--- NOTE | 2019-05-13 15:43 | MORECARE ---
CASE MANAGEMENT DISCHARGE SUMMARY PATIENT: JAZMINE BALLARD UNIT: [id number] ADM DATE: 05/10/19 AGE: 74 : 44 SEX: F ROOM/BED: D.2201 AUTHOR: KAYLEY PEARCE PHYSICIAN: REFERRING PHYSICIAN: FLAKITA NAIDU MD DATE OF SERVICE: 05/13/19 Discharge Plan Patient Name: JAZMINE BALLARD Facility: [facility]:[place] : 1945 Planned Disposition: Inpatient Rehab Anticipated Discharge Date: Discharge Date: Expected LOS: Initial Reviewer: [email or web address] Initial Review Date: 05/10/2019 Generated: 05/13/19 4:42 pm Comments DCP- Discharge Planning Updated by [email or web address]: Kathleen yL on 05/13/19 2:[address] PATIENT DC TO INPATIENT REHAB AT [facility] TODAY, IMM SIGNED AND EXPLAINED TO BOTH PATIENT AND DAUGHTER DCP- Discharge Planning Updated by [id number]: Kathleen Ly on 05/12/19 11:[address] Patient Name: JAZMINE BALLARD Admission Status: ER Accout number: [id number] Admission Date: 05-10-2019 : 1945 Admission Diagnosis: Attending: FLAKITA NAIDU Current LOS: 2 Anticipated DC Date: Planned Disposition: Inpatient Rehab Primary Insurance: MEDICARE A & B Discharge Planning Comments: CM met with patient to complete initial dc planning assessment. CM educated patient on the CM role and verbal consent given by patient to complete assessment. Patient lives at home with her daughter and spouse where she has 24/ help/care. She is assisted with ambulation, bathing, medications, toileting. At discharge patient plans to go to inpatient rehab at [facility] and feels this is a safe discharge. She has a Nebulizer, home O2 concentrator, walker, wheelchair, shower chair. Patient states she needs portable O2, she uses [employer]. Patient denied known discharge needs at this time. CM will continue to follow and will assist as needed with dc plans/needs. Router Tender: Kathleen Ly DCPIA - Discharge Planning Initial Assessment Updated by [email or web address]: Kathleen Ly on 05/12/19 12:37 pm * Is the patient Alert and Oriented? Yes * How many steps to enter\exit or inside your home? * PCP SATNAM * [facility]acy [facility] * Preadmission Environment Home with Family * ADLs Partial Dependent * Partial ADLs (Assistance needed) Ambulation Bathing Dressing Medication Management Toileting * Equipment Nebulizer Oxygen Rolling Walker Shower Chair Walker Wheelchair * List name and contact numbers for known caregivers / representatives who currently or will assist patient after discharge: ASH WOLF [phone] * Verbal permission to speak to the caregivers and representatives has been obtained from the patient. Yes * Community resources currently utilized Other * Please name any agencies selected above. 20/04 CARE/ HELP * Additional services required to return to the preadmission environment? Yes * Can the patient safely return to the preadmission environment? Yes * Has this patient been hospitalized within the prior 30 days at any hospital? No Coverage Notice Reviewer: [id number] Lobo Ly Notice Issued Date-Time: 05/13/2019 15:39 Notice Type: IM Discharge Notice Notice Delivered To: Family Member Relationship to Patient: Daughter Transmission System Operator Name: ASH Delivery Method: HAND - Hand Delivered Ewa Days: Prior Verbal Notification: Recipient Understood Notice: Yes Recipient Signature: Yes Med Rec Note Co-signed by Attending: Coverage Notice Comment: Last DP export: 05/12/19 11:41 a Patient Name: JAZMINE BALLARD Page 19738 at 1543 All edits/amendments must be made on the electronic document DICTATION DATE: 05/13/19 154 LAUNDRY MARKER SUPERVISOR: MARY 05/13/19 154 [facility]#: [id number] [place] DATE: STATUS: ADM IN [facility] [address] [place] [address] END OF REPORT
--- NOTE | 2019-05-13 16:15 | NUR ---
PT PROVIDED D/C INSTRUCTIONS WITH MEDICATION INSTRUCTIONS. DISCUSSED BEING TRANSFERRED TO REHAB. DENIES QUESTIONS AT THIS TIME. SALINE LOC D/C'D FROM LEFT AC, CATH INTACT.
[2019-05-13 16:21] VITALS: BP 135/81
--- NOTE | 2019-05-13 16:24 | NUR ---
REPORT CALLED TO [facility] IN REHAB. INFORMED STAFF PT WOULD BE TRANSFERRED VIA W/C AFTER MEDICATIONS ADMINISTERED.
--- NOTE | 2019-05-13 16:55 | NUR ---
PT TRANSFERRED TO REHAB VIA W/C WITH ALL PERSONAL BELONGINGS. PT GABRIELA WELL
--- NOTE | 2019-05-15 09:24 | EC ---
PATIENT:JAZMINE BALLARD DATE OF SERVICE: 05/10/19 SEX: F MEDICAL RECORD: [id number] DATE OF : [birth year] LOCATION:D.[facility] AGE OF PATIENT: 74 ADMISSION DATE: 05/10/19 REFERRING PHYSICIAN: INTERPRETING PHYSICIAN: MACARENA CARDONA MD ECHOCARDIOGRAM REPORT ECHO CHARGES 5 ECHO LIMITED Date: 05/10/19 1 DOPPLER ECHO COLOR FLOW 2 DOPPLER ECHO PULSE CLINICAL DIAGNOSIS: CHF ECHOCARDIOGRAPHIC MEASUREMENTS (adult normal given) AC root (d.<3.7cm) 0 cm LV Septum d (<1.2 cm> 0 cm Valve Excursion 0 cm LV Septum (systole) 0 cm Left Atria (s.<4.0cm> 0 cm LVPW d(<1.2cm) 0 cm RV (d.<2.3cm) 0 cm LVPW (sytole) 0 cm LV diastole(<5.6CM) 0 cm MV E-F(>70mm/sec) 0 cm LV systole 0 cm LVOT Diameter 0 cm MV exc.(>10mm) 0 cm Est.ejection fraction (50-75%) % DOPPLER: LVIT 0 cm/sec A 0 cm/sec E 0 cm/sec LA 0 cm/sec RVSP 44.4 mmHg LVOT 0 cm/sec AOP1/2T 0 m/s Asc. Ao 0 cm/sec RVOT 0 cm/sec RA 0 cm/sec PA 0 cm/sec AV Gradient Peak 0 mmHg AV Mean 0 mmHg AV Area 0 cm MV Gradient Peak 0 mmHg MV Mean 0 mmHg MV Area 0 cm COMMENTS: LIMITED STUDY (2-D,COLOR,DOPPLER) COMPLETE ECHO DONE ON 04/02/19 Autobody Technician: 1 NICOLAS BUIOE Supervisor Veneer: 3 Dr. Sun TAPE# PACS Pericardial Effusion N DATE OF SERVICE: Limited study includes 2D, color flow, spectral Doppler. Grossly LV internal dimension is normal. Wall motion is normal. EF is greater than or equal to 55%. Aortic valve appears tricuspid with good valve excursion. Left atrium appears grossly normal with no more than Trace MR. Right-sided chambers appear grossly normal. Moderate TR with RV systolic pressure estimated at greater than or equal to 44 mmHg via the continuity equation. TRANSINT:[id number] Voice Confirmation ID: [id number] DOCUMENT ID: [id number] ECHOCARDIOGRAM REPORT [id number] JAZMINE BALLARD GREGORY A MD at 0924 CC: [id number] DICTATION DATE: 05/11/19 1043 DISH MACHINE OPERATOR: 05/11/19 1234 DIS IN 05/13/19 [facility] [address] [place] [id number]
--- NOTE | 2019-05-16 13:50 | MORECARE ---
CASE MANAGEMENT DISCHARGE SUMMARY PATIENT: JAZMINE BALLARD UNIT: [id number] ADM DATE: 05/10/19 AGE: 74 : 44 SEX: F ROOM/BED: D.2201 AUTHOR: KAYLEY PEARCE PHYSICIAN: REFERRING PHYSICIAN: FLAKITA NAIDU MD DATE OF SERVICE: 05/16/19 Discharge Plan Patient Name: JAZMINE BALLARD Facility: [facility]:[place] : 1945 Planned Disposition: Inpatient Rehab Anticipated Discharge Date: Discharge Date: 05/13/2019 Expected LOS: Initial Reviewer: [email or web address] Initial Review Date: 05/10/2019 Generated: 05/16/19 2:50 pm Comments DCP- Discharge Planning Updated by [email or web address]: Kathleen Ly on 05/13/19 2:[address] PATIENT DC TO INPATIENT REHAB AT [facility] TODAY, IMM SIGNED AND EXPLAINED TO BOTH PATIENT AND DAUGHTER DCP- Discharge Planning Updated by [email or web address]: Kathleen Ly on 05/12/19 11:[address] Patient Name: JAZMINE BALLARD Admission Status: ER Accout number: [id number] Admission Date: 05-10-2019 : 1945 Admission Diagnosis: Attending: FLAKITA NAIDU Current LOS: 2 Anticipated DC Date: Planned Disposition: Inpatient Rehab Primary Insurance: MEDICARE A & B Discharge Planning Comments: CM met with patient to complete initial dc planning assessment. CM educated patient on the CM role and verbal consent given by patient to complete assessment. Patient lives at home with her daughter and spouse where she has 24/7 help/care. She is assisted with ambulation, bathing, medications, toileting. At discharge patient plans to go to inpatient rehab at [facility] and feels this is a safe discharge. She has a Nebulizer, home O2 concentrator, walker, wheelchair, shower chair. Patient states she needs portable O2, she uses [employer]. Patient denied known discharge needs at this time. CM will continue to follow and will assist as needed with dc plans/needs. Air Moving Technician: Kathleen Ly DCPIA - Discharge Planning Initial Assessment Updated by [id number]: Kathleen Ly on 05/12/19 12:37 pm * Is the patient Alert and Oriented? Yes * How many steps to enter\exit or inside your home? * PCP SATNAM * [facility]acy [facility] * Preadmission Environment Home with Family * ADLs Partial Dependent * Partial ADLs (Assistance needed) Ambulation Bathing Dressing Medication Management Toileting * Equipment Nebulizer Oxygen Rolling Walker Shower Chair Walker Wheelchair * List name and contact numbers for known caregivers / representatives who currently or will assist patient after discharge: ASH WOLF [phone] * Verbal permission to speak to the caregivers and representatives has been obtained from the patient. Yes * Community resources currently utilized Other * Please name any agencies selected above. 20/04 CARE/ HELP * Additional services required to return to the preadmission environment? Yes * Can the patient safely return to the preadmission environment? Yes * Has this patient been hospitalized within the prior 30 days at any hospital? No Coverage Notice Reviewer: [id number] Lobo Ly Notice Issued Date-Time: 05/13/2019 15:39 Notice Type: IM Discharge Notice Notice Delivered To: Family Member Relationship to Patient: Daughter Pet Stylist Name: ASH Delivery Method: HAND - Hand Delivered Ewa Days: Prior Verbal Notification: Recipient Understood Notice: Yes Recipient Signature: Yes Med Rec Note Co-signed by Attending: Coverage Notice Comment: Last DP export: 05/13/19 2:43 p Patient Name: JAZMINE BALLARD Page [phone] at 1350 All edits/amendments must be made on the electronic document DICTATION DATE: 05/16/19 1350 DRY HOUSE TENDER: MARY 05/16/19 1350 RPT#: [id number] DC DATE:05/13/19 STATUS: DIS IN [facility] [address] [place] [address] END OF REPORT
== END 2019-05-13 17:28 | DRG 884 ==
LOC: D.ER 22:10 → D.MS 05-10 02:02 → OBSVTIME 05-10 02:02 → D.MS 05-10 17:24
PROVIDERS: Family Medicine; ADMIT Internal Medicine Nephrology; ATTEND Internal Medicine Nephrology
DX: R54 Age-related physical debility (principal); Z68.42 Body mass index [BMI] 45.0-49.9, adult; I50.22 Chronic systolic (congestive) heart failure; S83.511A Sprain of anterior cruciate ligament of right knee, initial encounter; W18.2XXA Fall in (into) shower or empty bathtub, initial encounter; Y92.002 Bathroom of unspecified non-institutional (private) residence as the place of occurrence of the external cause; S83.241A Other tear of medial meniscus, current injury, right knee, initial encounter; I25.10 Atherosclerotic heart disease of native coronary artery without angina pectoris; I11.0 Hypertensive heart disease with heart failure; J45.909 Unspecified asthma, uncomplicated; R25.1 Tremor, unspecified; F41.9 Anxiety disorder, unspecified; E66.9 Obesity, unspecified; R53.81 Other malaise

== ENCOUNTER 2019-05-13 17:24 | Inpatient (IN) | payer MEDICARE ==
[~2019-05-13] VITALS: Ht 165.1 cm; Wt 127.0 kg
[~2019-05-13 17:24] MED LIST changes: +KLONOPIN0.5 MG PO; +LOVENOX40 MG/0.4 SC; +ROBAXIN500 MG PO
[2019-05-13 18:39] VITALS: BP 159/71; BMI 46.6
--- NOTE | 2019-05-13 19:20 | NUR ---
BEDSIDE REPORT COMPLETE. ASSISTED PT WITH TRANSFER FROM BED TO W/C WITH MOD ASSIST. TREMORS OF UPPER BODY AND HEAD NOTED. SLOW TO RESPOND AND VOICE SHAKY VOICE R/T TREMORS. DENIES ANY PAIN OR ANY CONCERNS. FAMILY AT BEDSIDE. CONTINUES ON 2L VIA NC. CALL LIGHT AND WATER WITHIN REACH, FALL PRECAUTIONS IN PLACE. WILL CONTINUE TO MONITOR
[2019-05-13 21:19] VITALS: BP 139/81
--- NOTE | 2019-05-13 23:38 | NUR ---
QUIET HOURS, LYING IN BED ON RIGHT SIDE EYES CLOSED RESTING. RR EVEN AND UNLABORED. WILL CONTINUE TO MONITOR
--- NOTE | 2019-05-14 02:06 | NUR ---
LYING IN BED ON LEFT SIDE EYES CLOSED RESTING. RR EVEN AND UNLABORED. CONTINUES ON 2L VIA NC. WILL CONTINUE TO MONITOR
--- NOTE | 2019-05-14 04:49 | NUR ---
LYING IN BED ON RIGHT SIDE EYES CLOSED RESTING. RR EVEN AND UNLABORED. WILL CONTINUE TO MONITOR
[2019-05-14 08:00] VITALS: BP 133/61
[2019-05-14 08:54] LABS: BASOPHILS 0.2 % (0-2); EOSINOPHILS 4.4 % (0-7); HEMATOCRIT 44.3 % (36.0-48.0); HEMOGLOBIN 13.6 g/dL (12-16); LYMPHOCYTES 27.8 % (15-50); MCH 29.9 pg (26.0-34.0); MCHC 30.7 g/dL (31.0-37.0); MCV 97.4 fL (80.0-100.0); MEAN PLATELET VOLUME 10.6 fL (7.4-10.4); MONOCYTES 10.5 % (2-11); NEUTROPHILS 57.1 % (40-80); PLATELET COUNT 118 10x3/uL (130-400); RBC 4.55 10x6/uL (4.00-5.40); RDW 13.6 % (11.5-14.5); WBC 4.8 10x3/uL (4.8-10.8)
[2019-05-14 09:02] LABS: ANION GAP 7.7 mmol/L (8-16); CALCIUM 8.8 mg/dL (8.5-10.1); CARBON DIOXIDE 38.1 mmol/L (21.0-32.0); CREATININE - SERUM 0.9 mg/dL (0.6-1.3); POTASSIUM - SERUM 3.8 mmol/L (3.5-5.1)
[2019-05-14 13:01] VITALS: Ht 165.1 cm; Wt 127.0 kg
--- NOTE | 2019-05-14 18:52 | NUR ---
HAD C/O "CHEST FEELS FUNNY" DENIED CHEST PRESSURE, SOB, JAW OR ARM PAIN. EKG AND LABS ORDERED. SHE ASKED FOR ANTI ANXIETY MEDS. IT WAS GIVEN REQUESTED. APPX 30 MIN LATER SHE STATED SHE WAS ALL BETTER AND HER GRAND KIDS WERE MAKING HER NERVOUS WHEN SHE WAS HAVING CHEST DISCOMFORT.
[2019-05-14 19:30] VITALS: BP 152/76
--- NOTE | 2019-05-14 19:30 | NUR ---
BEDSIDE REPORT COMPLETE. ASSISTED TO RESTROOM MOD ASSIST. DENIES ANY NEEDS OR PAIN. FAMILY AT BEDSIDE NOTED. CONTINUES ON 2L VIA NC. NO SIGNS OF DISTRESS NOTED. CALL LIGHT WITHIN REACH, FALL PRECAUTIONS IN PLACE. WILL CONTINUE TO MONITOR
[2019-05-14 19:47] LABS: CREATINE KINASE 53 UL (21-215)
[2019-05-14 19:48] LABS: TROPONIN-I < 0.017 ng/mL (0.000-0.060)
--- NOTE | 2019-05-15 00:50 | NUR ---
QUIET HOURS. LYING IN BED ON LEFT SIDE EYES CLOSED RESTING. RR EVEN AND UNLABORED. WILL CONTINUE TO MONITOR
--- NOTE | 2019-05-15 03:40 | NUR ---
LYING IN BED ON RIGHT SIDE EYES CLOSED RESTING. NO SIGNS OF DISTRESS NOTED. WILL CONTINUE TO MONITOR
--- NOTE | 2019-05-15 06:25 | NUR ---
SITTING UP IN W/C WATCHING TV. DENIES ANY NEEDS OR PAIN. FSBS 89. WILL CONTINUE TO MONITOR
[2019-05-15 08:00] VITALS: BP 130/72
--- NOTE | 2019-05-15 12:01 | NUR ---
HAS BEEN UP AND DOWN FROM WC TO BED SINCE WAKING THIS MORNING. HAS ANXIETY AND LOW BACK PAIN. SEVERE SHAKING TO HEAD AND BUE. CAN NOT EVEN HOLD HER DRINK. DTR IN ROOM VISITING WITH PT.
--- NOTE | 2019-05-15 18:33 | NUR ---
SITTING UP IN BED WATCHING TV. DENIES INCREASED PAIN AT PRESENT. FAMILY JUST LEFT. CALL LIGHT IN REACH
--- NOTE | 2019-05-15 19:20 | NUR ---
BEDSIDE REPORT COMPLETE. PT SITTING UP IN BED WATCHING TV. DENIES ANY NEEDS OR PAIN. CONTINUES ON 2L VIA NC. NO SIGNS OF DISTRESS NOTED. CALL LIGHT WITHIN REACH, FALL PRECAUTIONS IN PLACE. WILL CONTINUE TO MONITOR
[2019-05-15 19:59] VITALS: BP 141/51
--- NOTE | 2019-05-16 00:56 | NUR ---
QUIET HOURS. LYING IN BED ON RIGHT SIDE EYES CLOSED RESTING. RR EVEN AND UNLABORED. CONTINUES ON 2L VIA NC. WILL CONTINUE TO MONITOR
--- NOTE | 2019-05-16 02:57 | NUR ---
LYING IN BED EYES CLOSED RESTING. NO SIGNS OF DISTRESS NOTED. WILL CONTINUE TO MONITOR
--- NOTE | 2019-05-16 06:18 | NUR ---
ASSISTED TO RESTROOM WITH MOD ASSIST. C/O CHRONIC SHARP BACK PAIN ADMININSTERED [employer] . NO OTHER NEEDS VOICED. PT WOKE UP THIS AM WITH CROOPY COUGH WILL ADVISE DR. HAY SO WE CAN ADDRESS THIS ISSUE.
[2019-05-16 07:04] LABS: HEMATOCRIT 44.4 % (36.0-48.0); HEMOGLOBIN 13.6 g/dL (12-16); MCH 29.9 pg (26.0-34.0); MCHC 30.6 g/dL (31.0-37.0); MCV 97.6 fL (80.0-100.0); MEAN PLATELET VOLUME 10.7 fL (7.4-10.4); PLATELET COUNT 131 10x3/uL (130-400); RBC 4.55 10x6/uL (4.00-5.40); RDW 13.8 % (11.5-14.5); WBC 4.4 10x3/uL (4.8-10.8)
[2019-05-16 07:11] LABS: CREATININE - SERUM 0.9 mg/dL (0.6-1.3); POTASSIUM - SERUM 3.5 mmol/L (3.5-5.1)
[2019-05-16 07:12] LABS: CARBON DIOXIDE 40.5 mmol/L (21.0-32.0)
[2019-05-16 08:23] VITALS: BP 138/76
[2019-05-16 10:03] LABS: EOSINOPHILS 4 % (0-7); LYMPHOCYTES 38 % (15-50); MONOCYTES 11 % (2-11); NEUTROPHILS 45 % (40-80); PLATELET ESTIMATE NORMAL; ROULEAUX OCC
[2019-05-16 10:04] LABS: ANISOCYTOSIS OCC; HYPOCHROMASIA OCC
--- NOTE | 2019-05-16 15:23 | NUR ---
SITTING IN WC IN ROOM WATCHING TV. HAS BEEN WORKING IN THERAPY. TREMORS SEEM TO BE BETTER WITH KLONIPIN PO TAKEN TID. HAVE BEEN TEACHING ALTERNATIVE WAYS TO EAT (FINGER FOODS) WHEN TREMORS ARE SEVERE (WITH FINGERS INSTEAD OF FORK), LOOKING AT ADULT SIPPIE CUPS AND SPILL PROOF DISHES AND GLASSES. DTR VISITED TODAY AND AGREED PT WOULD BENEFIT FROM SPILL PROOF CUPS.
--- NOTE | 2019-05-16 16:11 | NUR ---
PATIENT ADMITTED TO REHAB FROM ACUTE FLOOR. DME AT HOME IS A WALKER, WHEELCHAIR, SHOWER CHAIR, NEBULIZER, O2 ([facility]) AND SHE HAS 24/7 CARE . SHE LIVES WITH HER DAUGHTER AND WILL DISCHARGE BACK THERE. DR. HAY IS HER PCP. WILL CONTINUE TO FOLLOW WITH PATIENT.
--- NOTE | 2019-05-16 18:04 | NUR ---
SITTING UP IN WC TALKING WITH FAMILY. TEACHING WITH FAMILY REGUARDING WHAT PT SUCCESSFULLY ATE BY HERSELF TODAY (FINGER FOODS) AND HER TREMORS ARE LESS SEVERE WITH KLONIPIN TID.
--- NOTE | 2019-05-16 20:16 | NUR ---
FAMILY MEMBERS VISITING.
[2019-05-16 23:13] VITALS: BP 154/76
--- NOTE | 2019-05-17 01:33 | NUR ---
REST IN BED. CALL LIGHT IN REACH.
--- NOTE | 2019-05-17 01:33 | NUR ---
REST IN BED QUIETLY IN BED, CALL LIGHT IN REACH.
--- NOTE | 2019-05-17 04:03 | NUR ---
I have reviewed this patient and I concur with the Shift Assessment completed by the Licensed Practical Nurse today this shift.
--- NOTE | 2019-05-17 08:40 | NUR ---
PT AM MEDS ADMINISTERED. PT DENIES NEEDS. WCTM.
[2019-05-17 08:48] VITALS: BP 156/77
--- NOTE | 2019-05-17 15:43 | NUR ---
Nutrition Follow-up: Diet: Diabetic PO intake: 56% Reports appetite improved. Doesn't want glucerna. 280# (05/14/19) Last BM 05/15/19 Labs and meds reviewed RD Following
--- NOTE | 2019-05-17 17:45 | NUR ---
PT SITTING UP IN BED EATING DINNER, DENIES NEEDS. WCTM.
--- NOTE | 2019-05-17 20:02 | NUR ---
ASSISTED TO AND FROM BATHROOM. PT BACK IN BED. CL IN REACH. DENIES FURTHER NEEDS. A/O X4. RESP EVEN AND UNLABORED. O2 ON 2L VIA NC. HOB RAISED. WCTM
[2019-05-17 20:20] VITALS: BP 151/68
--- NOTE | 2019-05-18 05:36 | NUR ---
FSBS 91. PT LYING IN BED RESTING QUIETLY. CL IN REACH DENIES NEEDS AT THIS TIME. WCTM
--- NOTE | 2019-05-18 06:08 | NUR ---
ASSISTED TO AND FROM BATHROOM. CL IN REACH. PT BACK IN BED. DENIES FURTHER NEEDS. WCTM
[2019-05-18 06:42] LABS: BASOPHILS 0.4 % (0-2); EOSINOPHILS 5.4 % (0-7); HEMATOCRIT 42.9 % (36.0-48.0); HEMOGLOBIN 13.1 g/dL (12-16); IMMATURE GRANULOCYTES 0.2 % (0-5); LYMPHOCYTES 42.3 % (15-50); MCH 29.7 pg (26.0-34.0); MCHC 30.5 g/dL (31.0-37.0); MCV 97.3 fL (80.0-100.0); MEAN PLATELET VOLUME 10.8 fL (7.4-10.4); MONOCYTES 12.3 % (2-11); NEUTROPHILS 39.4 % (40-80); PLATELET COUNT 127 10x3/uL (130-400); RBC 4.41 10x6/uL (4.00-5.40); RDW 13.8 % (11.5-14.5)
[2019-05-18 07:02] LABS: CALCIUM 8.6 mg/dL (8.5-10.1); CARBON DIOXIDE 39.8 mmol/L (21.0-32.0); CREATININE - SERUM 0.9 mg/dL (0.6-1.3); POTASSIUM - SERUM 3.8 mmol/L (3.5-5.1)
[2019-05-18 08:02] VITALS: BP 147/60
--- NOTE | 2019-05-18 08:49 | NUR ---
PATIENT SITTING UP IN CHAIR FOR BREAKFAST. NEEDS HELP WITH CUTTING UP FOOD AND OPENING CONTAINORS DUE TO TREMORS. CALL LIGTH WITHIN REACH. VOICES NO NEEDS AT THIS TIME. WILL CONTINUE WITH PLAN OF CARE
--- NOTE | 2019-05-18 10:49 | NUR ---
PATIENT HELPED TO BATHROOM. PATIENT IS ABLE TO TRANSFER FROM WHEELCHAIR TO TOILET. NEEDS HELP WITH PULLING UP AND DOWN PANTS
--- NOTE | 2019-05-18 11:24 | NUR ---
GLUCOSE LEVEL 88. GRAM CRAKERS GIVEN.
--- NOTE | 2019-05-18 11:41 | RHP ---
PATIENT: JAZMINE BALLARD MEDICAL RECORD: [id number] ACCOUNT: [id number] LOCATION:[facility]1118 : 43 ADMISSION DATE: 05/13/19 REHABILITATION HISTORY AND PHYSICAL EXAMINATION POST ADMISSION PHYSICIAN EXAMINATION POST ADMISSION PHYSICAL EXAMINATION AND HISTORY AND PHYSICAL DATE OF ADMISSION: 05/13/2019 ADMITTING DIAGNOSIS: Debility secondary to muscular wasting, disuse atrophy. HISTORY OF PRESENT ILLNESS: The patient is a 74-year-old female patient, who presented to the Emergency Room after a fall in the bathtub on May 10. She had right rib pain, neck pain. States she did hit her head and neck on the edge of the tub. She reported muscle weakness prior to the fall and upon arrival to the ED, her left extremity was shortened and rotated, but no acute finding per hip x-ray. The patient reported that she had been having increasing weakness over the previous several months since her passed and significant worsening over the previous 2-3 days prior to her hospital admit. CT was negative for any acute findings. An MRI of her right knee was done. It showed severe tricompartmental degenerative joint disease, degenerative tear of the medial meniscus, the anterior cruciate ligament was partially torn. She had an orthopedic surgery consult, but no surgical intervention was recommended at this time. She would benefit from a total knee at some point, but she refused to have that done now. She had progressed with physical therapy. Got a past medical history of hypothyroidism, diabetes, CHF, hypertension, asthma, tremors, anxiety, obesity, MA in the past, osteoporosis, and depression. She is on supplemental O2, a Dodson catheter. She has got acute pain, deconditioning, impaired mobility. She has gait disturbance, high fall risk, and self-care deficits. These are all barriers to her discharge home at this time. She does live at home with her daughter and son-in-law since her spouse . She was moderately independent with the use of a rolling walker prior to this recent decline in mobility and independent with ADLs. She is currently mod assist to total assist for mobility, set up for mod assist with her ADLs. She and her family would like for her to return home with as close to her prior level of functioning as possible. Comorbidities include hypertension, tremor, hypothyroidism, history of coronary artery disease, diabetes, weakness, asthma, tremor, anxiety, obesity, and coronary artery disease. PAST MEDICAL HISTORY: Significant for diabetes, thyroid problems, hypertension, CHF, MA, coronary artery disease, arthritis, osteoporosis, menopause, and depression. PAST SURGICAL HISTORY: Includes gallbladder surgery, stents times 4. ALLERGIES: IODINE AND ASPIRIN. CURRENT MEDICATIONS: Include Floranex 460 mg daily, metoprolol 50 mg daily, Lovenox 40 mg subcutaneous daily, citalopram 40 mg daily, vitamin D 2000 units daily, metformin 500 mg b.i.d. with meals. She is on an intermediate resistant sliding scale with insulin. She is on Synthroid 100 mcg daily, primidone 250 mg t.i.d., Robaxin 500 mg b.i.d., Unasyn q.h.s., BuSpar 15 mg b.i.d., Golden Eagle 1 tab every 4 hours p.r.n., MiraLax 17 grams in 8 ounces of water daily, and Klonopin 0.5 mg t.i.d. p.r.n. anxiety. HISTORY AND PHYSICAL [id number] JAZMINE BALLARD HABITS: No alcohol or tobacco use. FAMILY HISTORY: Noncontributory. SOCIAL HISTORY: The patient once again hopes to return home. REVIEW OF SYSTEMS: GENERAL: Does complain of some weakness and fatigue. HEENT: Denies cold, cough, or congestion. CARDIOVASCULAR: Denies chest pain. PHYSICAL EXAMINATION: VITAL SIGNS: Stable, afebrile. GENERAL: A morbidly obese female, in no distress upon exam. HEENT: Normocephalic and atraumatic. Mucosa moist. NECK: Supple, with no lymphadenopathy. LUNGS: Clear at this time with no wheeze, rhonchi or rales. HEART: Regular rhythm. No murmurs, rubs or gallops. ABDOMEN: Soft, benign, and nondistended. Positive bowel sounds times 4. EXTREMITIES: No clubbing, cyanosis or edema. She does have pain with passive movement of her knee, especially on the right. NEUROLOGIC: She does have 2/5 muscular strength in her proximal muscles of her lower extremities. LABORATORY DATA: White count is 4.8, H&H 13 and 44, and platelet count was noted to be 118. Sodium 141, potassium 3.8, BUN and creatinine of 9 and 0.9, and blood sugar is noted to be 111. ASSESSMENT: This is a 74-year-old female patient admitted to the rehab with a working diagnosis of debility secondary to muscular wasting and recent falls. The patient has potential to make improvement. We will institute the following multidisciplinary therapies including, but not limited to, physical, occupational, respiratory, speech, nutritional services, prosthetics, and orthotics. Given her complex medical condition and risks for more complications, rehabilitation services cannot be provided at a lower level of care such as a skilled nurse facility. PLAN: 1. Admit to [facility] for an inpatient therapy to include the following disciplines; A. Physical therapy to improve gait, all transfer skills, and bed mobility to modified independent level. B. Occupational therapy to modified independent level. C. Case management to assist with discharge planning and placement options. D. Nutrition to assist with nutritional needs. E. Rehabilitation nursing to assist in monitoring the patient's underlying medical conditions and to assist with any type of bowel or bladder management. 2. The patient's current medications and medical care will be continued. 3. The patient will be placed on standard fall precautions. 4. The patient's estimated length of stay is approximately 7-10 days. 5. We will discuss the patient during care team staff meeting this week. I am going to go ahead and put her on a low for her depression and see how she does with this, and we will follow up in the a.m. HISTORY AND PHYSICAL [id number] JAZMINE BALLARD TRANSINT:[id number] Voice Confirmation ID: [id number] DOCUMENT ID: [id number] YVONNE notes whether there has been none or any medical/functional change since admission: - No change since pre-admission screen. YVONNE attests patient continues to be appropriate for IRF: - Continues to be appropriate. VELASQUEZ HAY MD at 1141 CC: [id number] DICTATION DATE: 05/14/19 1238 TAX PROCESSOR: 05/14/19 1418 ADM IN [id number] [place] [address]
--- NOTE | 2019-05-18 19:59 | NUR ---
PATIENT RECEIVED SITTING UP IN BED. ASSESSMENT & VITAL SIGNS DONE. NO C/O PAIN OR DISTRESS. BEDSIDE TABLE & CALL LIGHT WITHIN REACH. WILL CONTINUE TO MONITOR.
[2019-05-18 20:09] VITALS: BP 139/69
--- NOTE | 2019-05-19 00:51 | NUR ---
I have reviewed this patient and I concur with the Shift Assessment completed by the Licensed Practical Nurse today this shift.
--- NOTE | 2019-05-19 03:54 | NUR ---
PATIENT EYES CLOSED. RESPIRATIONS 18 & EVEN. BED LOW. CALL LIGHT WITHIN REACH. WILL CONTINUE TO MONITOR.
[2019-05-19 08:14] VITALS: BP 146/71
[2019-05-19 20:00] VITALS: BP 160/75
--- NOTE | 2019-05-19 20:00 | NUR ---
PATIENT RECEIVED SITTING UP IN BED WATCHING TV. ASSESSMENT & VITAL SIGNS DONE. NO C/O PAIN OR DISTRESS. BED LOW. CALL LIGHT WITHIN REACH. WILL CONTINUE TO MONITOR.
--- NOTE | 2019-05-20 03:18 | NUR ---
I have reviewed this patient and I concur with the Shift Assessment completed by the Licensed Practical Nurse today this shift.
[2019-05-20 08:42] VITALS: BP 148/72
[2019-05-20 09:28] LABS: CALC OSMOLALITY 283 mosm/kg (275-300); CARBON DIOXIDE 35.9 mmol/L (21.0-32.0); CHLORIDE - SERUM 101 mmol/L (98-107); CREATININE - SERUM 0.7 mg/dL (0.6-1.3); GLUCOSE 96 mg/dL (74-106); POTASSIUM - SERUM 3.7 mmol/L (3.5-5.1); SODIUM 143 mmol/L (136-145); UREA NITROGEN 11 mg/dL (7-18); eGFR NON AFRICAN AMERICAN 86 mL/min (90-120)
[2019-05-20 10:45] LABS: BASOPHILS 0.3 % (0-2); EOSINOPHILS 4.4 % (0-7); IMMATURE GRANULOCYTES 0.3 % (0-5); LYMPHOCYTES 27.6 % (15-50); MEAN PLATELET VOLUME 10.7 fL (7.4-10.4); MONOCYTES 11.1 % (2-11); NEUTROPHILS 56.3 % (40-80); PLATELET COUNT 114 10x3/uL (130-400); RBC 4.33 10x6/uL (4.00-5.40); RDW 13.6 % (11.5-14.5); WBC 3.9 10x3/uL (4.8-10.8)
--- NOTE | 2019-05-20 19:15 | NUR ---
RECEIVED CARE FROM DAY NURSE. SITTING IN WC WITH BHAVANA AT SIDE. NO NEEDS VOICED AT THIS TIME. CALL LIGHT AT SIDE.
[2019-05-20 20:00] VITALS: BP 165/82
--- NOTE | 2019-05-20 23:03 | NUR ---
LYING IN BED WITH EYES CLOSED. RESP EVEN AND UNLABORED. NO DISTRESS NOTED. CALL LIGHT AT SIDE.
[2019-05-21 07:50] VITALS: BP 135/69
--- NOTE | 2019-05-21 10:31 | NUR ---
PT ALERT X 4. TREMORS PRESENT. BREATH SOUNDS CLEAR BILAT, 2L O2 PER NC. PT REPORTING PAIN OF 8/10, MEDICATED PER ORDERS, WILL MONITOR. PT ASSISTED TO AND FROM BATHROOM. SITTING UP IN THE WHEELCHAIR. BED LOW, CALL LIGHT IN REACH. NO OTHER NEEDS AT THIS TIME.
--- NOTE | 2019-05-21 19:20 | NUR ---
PT SITTING UP IN WHEELCHAIR. VISITING WITH FAMILY. CL IN REACH. DENIES NEEDS OR PAIN AT THIS TIME. A/O X4. RESP EVEN AND UNLABORED. O2 ON 2L VIA NC. WCTM
[2019-05-21 19:58] VITALS: BP 158/57
--- NOTE | 2019-05-21 22:15 | NUR ---
ASSISTED TO AND FROM BATHROOM. BACK IN BED. CL IN REACH. DENIES FURTHER NEEDS. WCTM
--- NOTE | 2019-05-22 02:54 | NUR ---
I have reviewed this patient and I concur with the Shift Assessment completed by the Licensed Practical Nurse today this shift.
--- NOTE | 2019-05-22 06:25 | NUR ---
ASSISTED TO AND FROM BATHROOM. CL IN REACH. DENIES FURTHER NEEDS. BACK IN BED. O2 ON. WCTM
[2019-05-22 08:14] VITALS: BP 144/67
--- NOTE | 2019-05-22 13:00 | NUR ---
I have reviewed this patient and I concur with the Shift Assessment completed by the Licensed Practical Nurse today this shift.
--- NOTE | 2019-05-22 14:02 | NUR ---
PATIENT HELPED WITH SHOWER BY NURSE ASST.
--- NOTE | 2019-05-22 19:39 | NUR ---
PT LYING IN BED WATCHING TV. CL IN REACH. DENIES NEEDS AT THIS TIME. BED IN LOW SIDE RAILS X2. A/O X4. RESP EVEN AND UNLABORED. WCTM
[2019-05-22 19:43] VITALS: BP 142/65
--- NOTE | 2019-05-22 20:05 | NUR ---
ASSISTED TO AND FROM BATHROOM. PT IN WHEELCHAIR BY BED FOR WHILE. DENIES FURTHER NEEDS. CL IN REACH
--- NOTE | 2019-05-22 21:27 | NUR ---
ASSISTED BACK TO BED FROM WHEELCHAIR. CL IN REACH. DENIES FURTHER NEEDS. WCTM
--- NOTE | 2019-05-23 02:23 | NUR ---
I have reviewed this patient and I concur with the Shift Assessment completed by the Licensed Practical Nurse today this shift.
--- NOTE | 2019-05-23 02:39 | NUR ---
ASSISTED TO AND FROM BATHROOM. BACK IN BED.CL IN REACH. DENIES FURTHER NEEDS. CPOC
--- NOTE | 2019-05-23 06:05 | NUR ---
ASSISTED TO AND FROM BATHROOM. PT SITTING UP IN WHEELCHAIR NEXT TO BED. CL IN REACH. WCTM
[2019-05-23 07:21] LABS: BASOPHILS 0.5 % (0-2); EOSINOPHILS 4.8 % (0-7); HEMATOCRIT 41.5 % (36.0-48.0); HEMOGLOBIN 12.6 g/dL (12-16); LYMPHOCYTES 40.8 % (15-50); MCH 29.4 pg (26.0-34.0); MCHC 30.4 g/dL (31.0-37.0); MEAN PLATELET VOLUME 11.3 fL (7.4-10.4); MONOCYTES 11.1 % (2-11); NEUTROPHILS 42.8 % (40-80); PLATELET COUNT 106 10x3/uL (130-400); RBC 4.28 10x6/uL (4.00-5.40); RDW 13.8 % (11.5-14.5); WBC 3.8 10x3/uL (4.8-10.8)
[2019-05-23 07:40] LABS: ANION GAP 7.9 mmol/L (8-16); CALCIUM 8.8 mg/dL (8.5-10.1); CARBON DIOXIDE 37.7 mmol/L (21.0-32.0); CREATININE - SERUM 0.8 mg/dL (0.6-1.3); POTASSIUM - SERUM 3.6 mmol/L (3.5-5.1)
--- NOTE | 2019-05-23 08:15 | NUR ---
SITTING UP IN WC IN ROOM WAITING ON BREAKFAST. HAS SEVERE TREMORS TO HEAD AND BUE. DENIES INCREASED PAIN. CALL LIGHT IN REACH
[2019-05-23 09:00] VITALS: BP 163/42
--- NOTE | 2019-05-23 13:03 | NUR ---
SITTING UP IN WC IN ROOM EATING LUNCH. CALL LIGHT IN REACH
--- NOTE | 2019-05-23 17:54 | NUR ---
SITTING UP IN WC IN ROOM FINISHING SUPPER AND VISITING WITH FAMILY. DENIES NEEDS OR C/O. STILL WEARING OXYGEN.
--- NOTE | 2019-05-23 20:56 | NUR ---
ASSISTED PT TO BATHROOM.
[2019-05-24 00:03] VITALS: BP 152/71
--- NOTE | 2019-05-24 01:43 | NUR ---
REST IN BED, EYE CLOSE, CALL LIGHT IN REACH.
--- NOTE | 2019-05-24 04:07 | NUR ---
I have reviewed this patient and I concur with the Shift Assessment completed by the Licensed Practical Nurse today this shift.
--- NOTE | 2019-05-24 04:27 | NUR ---
REST IN BED, CALL LIGHT IN REACH.
[2019-05-24 08:10] VITALS: BP 143/59
--- NOTE | 2019-05-24 08:15 | NUR ---
SITTING UP IN WC IN ROOM EATING BREAKFAST. DENIES INCREASED PAIN TO BACK. WEARING OXYGEN. EDEMA NOTED TO BLE. TREMORS IN HEAD AND BOTH ARMS. CALL LIGHT IN REACH
--- NOTE | 2019-05-24 11:15 | NUR ---
DC HOME WITH ALL PERSONAL BELONGINGS. MEDS CALLED INTO PHARMACY. HARD SCRIPT GIVEN FOR PAIN MEDS. DTR AT BEDSIDE TO TAKE PT HOME. REVIEWED MEDS, FOLLOW UP APPTS, SAFETY AND DC PLAN. LEFT FLOOR IN WC.
--- NOTE | 2019-05-24 11:55 | NUR ---
PATIENT DISCHARGED HOME WITH FAMILY. [facility] WILL PROVIDE THEREAPY AT HOME. HOUSE CALLS WILL FOLLOW WITH PATIENT. NO NEW DME NEEDED AT THIS TIME. PATIENT WILL SEE DR. HAY NEEDED. PATIENT CHOICE FORM AND IMFM FORMS SIGNED, COPY GIVEN TO PATIENT AND FILED IN CHART. DISCHARGE INSTRUCTION WITH FIM DATA FAXED TO PCP, HOUSE CALLS, HOME HEALTH AND REVIEWED WITH PATIENT.
--- NOTE | 2019-05-24 12:25 | NUR ---
ODELVA FAXED TO [facility] FOR CONTINOUS O2 AT 2L PER NASAL CANNULA.
== END 2019-05-24 11:00 | disposition home health service (06) | DRG 948 ==
LOC: D.REHAB 17:24
PROVIDERS: ADMIT Emergency Medicine; ATTEND Emergency Medicine
DX: R53.81 Other malaise (principal); I50.20 Unspecified systolic (congestive) heart failure; M62.50 Muscle wasting and atrophy, not elsewhere classified, unspecified site; I10 Essential (primary) hypertension; E03.9 Hypothyroidism, unspecified; I25.10 Atherosclerotic heart disease of native coronary artery without angina pectoris; E11.9 Type 2 diabetes mellitus without complications; J45.909 Unspecified asthma, uncomplicated; E66.9 Obesity, unspecified; R25.1 Tremor, unspecified; F41.9 Anxiety disorder, unspecified; E66.01 Morbid (severe) obesity due to excess calories; E11.65 Type 2 diabetes mellitus with hyperglycemia; I11.0 Hypertensive heart disease with heart failure

== ENCOUNTER 2019-06-04 21:15 | Inpatient (IN) | payer MEDICARE ==
[~2019-06-04] VITALS: Ht 165.1 cm; Wt 98.0 kg
[2019-06-04 21:58] LABS: BASOPHILS 0.4 % (0-2); EOSINOPHILS 4.7 % (0-7); HEMATOCRIT 41.4 % (36.0-48.0); HEMOGLOBIN 12.8 g/dL (12-16); IMMATURE GRANULOCYTES 0.2 % (0-5); LYMPHOCYTES 30.6 % (15-50); MCH 30.1 pg (26.0-34.0); MCHC 30.9 g/dL (31.0-37.0); MCV 97.4 fL (80.0-100.0); MONOCYTES 12.3 % (2-11); NEUTROPHILS 51.8 % (40-80); PLATELET COUNT 116 10x3/uL (130-400); RBC 4.25 10x6/uL (4.00-5.40); RDW 13.9 % (11.5-14.5); WBC 4.9 10x3/uL (4.8-10.8)
[2019-06-04 22:16] LABS: ALBUMIN 2.9 g/dL (3.4-5.0); ANION GAP 4.9 mmol/L (8-16); BILIRUBIN - TOTAL 0.28 mg/dL (0.2-1.3); CALCIUM 8.4 mg/dL (8.5-10.1); CREATININE - SERUM 0.9 mg/dL (0.6-1.3); POTASSIUM - SERUM 3.8 mmol/L (3.5-5.1); PROTEIN - SERUM 6.1 g/dL (6.4-8.2); TROPONIN-I 0.019 ng/mL (0.000-0.060)
[2019-06-04 22:20] LABS: CARBON DIOXIDE 41.9 mmol/L (21.0-32.0)
--- NOTE | 2019-06-04 22:20 | NUR ---
ERP INFORMED OF CRITICAL LAB - LACTIC ACID 2.4 AND CO2 41.9.
--- NOTE | 2019-06-04 23:24 | NUR ---
PT ARRVED VIA STRETCHER. NO DISTRESS NOTED. FAMILY AT BEDSIDE.
[2019-06-05] VITALS (7 sets, daily range): BP systolic 121–142; BP diastolic 63–76; BMI 36.0
[2019-06-05] MEDS ORDERED: BUSPAR 15 MG TA15 MG PO (00:43)
[2019-06-05] MEDS ORDERED: MOBIC7.5 MG PO (00:46)
--- NOTE | 2019-06-05 01:36 | NUR ---
ASSISTED PT WITH ASSIST X2 TO [facility] AT 2350 HRS. PT STATES SHE NEEDS TO URINATE BUT IS UNABLE. ASSISTED PT BACK TO BED. BLADDER DISTENDED. THOMPSON PLACED USING STERILE TECHNIQUE WITH ATTEMPT X2 BY Reg LYNNE RN WITH 725CC OF YELLOW URINE RETURN. PT TOLERATED PROCEDURE WELL. ADMISSION ASSESSMENT, HISTORY AND HOME MED LIST COMPLETED BY 0040 HRS. VSS. SR PER CM HR 78. O2 2LNC. LUNGS DIMINISHED IN BSES BILAT. PT SOB WITH EXERTION. UNALBE TO LAY FLAT. BRUISES NOTED TO BILAT ARMS. ABD SOFT WITH ACTIVE BS NOTED. LEGS WITH 2+ EDEMA. GAIT STIFF. IV TO L HAND WITH ROCEPHIN INFUSING. PT REQUESTING PAIN MEDS. [facility] CALLED AND Rj HERNANDEZ RETURNS CALL. INFORMED OF PLACEMENT OF THOMPSON FOR RETENTION AND PT'S REQUEST FOR PAIN MEDS. NEW ORDERS RECEIVED AND NOTED. NORCO 10/325 PO GIVEN FOR C/O CHRONIC BACK PAIN. DAUGHTER AT BEDSIDE. SR UP X2, CALL LIGHT WITHIN REACH AND BED ALARM ON.
[2019-06-05 02:09] LABS: APPEARANCE CLEAR (CLEAR); BILIRUBIN NEGATIVE (NEGATIVE); COLOR YELLOW (YELLOW); GLUCOSE NEGATIVE (NEGATIVE); KETONE NEGATIVE (NEGATIVE); NITRITE NEGATIVE (NEGATIVE); PROTEIN NEGATIVE (NEGATIVE); SPECIFIC GRAVITY 1.015 (1.005-1.020); UROBILINOGEN NORMAL (NORMAL)
--- NOTE | 2019-06-05 02:48 | NUR ---
PT RESTING WITH EYES CLOSED. RESP EVEN AND REGULAR. SR UP X2, CALL LIGHT WITHIN REACH AND DAUGHTER AT BEDSIDE.
--- NOTE | 2019-06-05 04:35 | NUR ---
PT HAVING SOME TRANSIENT A-FIB RATE 90'S TO 110"S THEN BACK TO SR. PT ASYMPTOMATIC. DAUGHTER AT BEDSIDE.
--- NOTE | 2019-06-05 05:42 | NUR ---
PT STAYING IN A-FIB RATE 90'S TO 130'S. PT ASYMPTOMATIC WITH BP 147/78. K JUNIE HERNANDEZ NOTIFIED AND NEW ORDES RECEIVED AND NOTED.
--- NOTE | 2019-06-05 05:47 | NUR ---
DR KAILEY BAL.
--- NOTE | 2019-06-05 05:51 | NUR ---
DR BONNER RETURNS PAGE. INFORMED OF CONSULT, UCAF ON MONITOR, BETA MARIBEL DAILY FOR BP AND OVERALL STATUS AND NO HX OF A-FIB. NEW ORDERS RECEIVED AND NOTED.
[2019-06-05 06:08] LABS: BASOPHILS 0.2 % (0-2); EOSINOPHILS 3.9 % (0-7); HEMATOCRIT 42.2 % (36.0-48.0); HEMOGLOBIN 12.8 g/dL (12-16); MCH 29.8 pg (26.0-34.0); MCHC 30.3 g/dL (31.0-37.0); MCV 98.1 fL (80.0-100.0); MEAN PLATELET VOLUME 10.5 fL (7.4-10.4); NEUTROPHILS 50.9 % (40-80); PLATELET COUNT 115 10x3/uL (130-400); RDW 14.1 % (11.5-14.5); WBC 5.4 10x3/uL (4.8-10.8)
[2019-06-05 06:30] LABS: CALCIUM 8.4 mg/dL (8.5-10.1); CREATININE - SERUM 0.8 mg/dL (0.6-1.3); MAGNESIUM - SERUM 1.7 mg/dL (1.8-2.4); POTASSIUM - SERUM 3.4 mmol/L (3.5-5.1)
[2019-06-05 06:34] LABS: CARBON DIOXIDE 45.4 mmol/L (21.0-32.0)
--- NOTE | 2019-06-05 10:37 | NUR ---
PATIENT ASSISSTED TO BEDSIDE COMMODE. SHEETS CHANGED. LUNG SOUNDS ARE CLEAR BUT DIMINISHED WITH A SMALL AMOUNT OF WHEEZES ON EXHALE. BM CLEANED AND PATIENT ASSISSTED BACK TO BED. BRUISES NOTED ON BILATERAL ARMS. IV TO HTE RIGHT HAND IS SALINE LOCKED BUT PATENT. TELEMETRY IS ON AND ACTIVE. PATIENT DENIES ANY PAIN AT THIS TIME. BED IS IN LOW POSITION AND CALL LIGHT IS IN REACH. FRESH ICE WATER PROVIDED WITH MEDICATION PASS
[2019-06-05 15:04] LABS: CKMB 1.2 U/L (0.0-3.6); CREATINE KINASE 32 UL (21-215)
--- NOTE | 2019-06-05 17:49 | NUR ---
SCD'S REFUSED AT THIS TIME
--- NOTE | 2019-06-05 19:10 | NUR ---
AWAKE QAND ALERT WITH FAMILY MEMBER BY BED SIDE DED LOW AND LOCK SKIN WARM AND DRY LUNGS WITH FAINT CRACKLES AND DEMINISHED CALL LIGHT IS IN PLACE PT ASKING FOR ANXIRTY AND PAIN MED
[2019-06-05 20:39] LABS: CREATINE KINASE 35 UL (21-215)
[2019-06-05 20:40] LABS: TROPONIN-I < 0.017 ng/mL (0.000-0.060)
[2019-06-06 00:01] VITALS: BP 110/64
[2019-06-06 02:54] LABS: BASOPHILS 0.2 % (0-2); EOSINOPHILS 2.6 % (0-7); HEMATOCRIT 40.1 % (36.0-48.0); HEMOGLOBIN 12.3 g/dL (12-16); IMMATURE GRANULOCYTES 0.2 % (0-5); LYMPHOCYTES 28.3 % (15-50); MCH 29.8 pg (26.0-34.0); MCHC 30.7 g/dL (31.0-37.0); MCV 97.1 fL (80.0-100.0); MEAN PLATELET VOLUME 10.6 fL (7.4-10.4); MONOCYTES 6.9 % (2-11); NEUTROPHILS 61.8 % (40-80); PLATELET COUNT 119 10x3/uL (130-400); RBC 4.13 10x6/uL (4.00-5.40); RDW 13.8 % (11.5-14.5); WBC 5.1 10x3/uL (4.8-10.8)
[2019-06-06 03:00] LABS: CALC OSMOLALITY 286 mosm/kg (275-300); CALCIUM 8.3 mg/dL (8.5-10.1); CHLORIDE - SERUM 96 mmol/L (98-107); CKMB 0.5 U/L (0.0-3.6); CREATINE KINASE 28 UL (21-215); CREATININE - SERUM 0.9 mg/dL (0.6-1.3); GLUCOSE 145 mg/dL (74-106); MAGNESIUM - SERUM 1.6 mg/dL (1.8-2.4); POTASSIUM - SERUM 3.7 mmol/L (3.5-5.1); SODIUM 143 mmol/L (136-145); UREA NITROGEN 11 mg/dL (7-18); eGFR NON AFRICAN AMERICAN 65 mL/min (90-120)
[2019-06-06 03:11] LABS: CARBON DIOXIDE 47.8 mmol/L (21.0-32.0); TROPONIN-I < 0.017 ng/mL (0.000-0.060)
[2019-06-06 04:00] VITALS: BP 112/62
--- NOTE | 2019-06-06 05:50 | NUR ---
I have reviewed this patient and I concur with the Shift Assessment completed by the Licensed Practical Nurse today this shift.
[2019-06-06 07:38] VITALS: BP 142/74
[2019-06-06 11:39] VITALS: BP 144/76
[2019-06-06 14:21] VITALS: Ht 165.1 cm; Wt 98.0 kg
[2019-06-06 14:51] VITALS: BP 160/73
--- NOTE | 2019-06-06 15:56 | NUR ---
TO CALENDER WIND UP HELPER VIA BED.
--- NOTE | 2019-06-06 19:25 | NUR ---
PT ALERT AND AWAKE SKIN WARM AND DRY LCTA WITH DEMINISHED BASES PT IS PUTTING OFF LOTS OF FLUID AND STATYES SHE IS BREATHING BETTER BED IS LOW AND LOCKED CALL LIGHT IN PLACE
[2019-06-06 20:00] VITALS: BP 135/70
--- NOTE | 2019-06-07 03:38 | NUR ---
I have reviewed this patient and i concur with the shift assessment conducted by the Licensed Practical nurse during this shift.
[2019-06-07 04:30] VITALS: BP 100/48
[2019-06-07 05:41] LABS: BASOPHILS 0.2 % (0-2); EOSINOPHILS 1.2 % (0-7); HEMATOCRIT 40.1 % (36.0-48.0); HEMOGLOBIN 12.6 g/dL (12-16); IMMATURE GRANULOCYTES 0.2 % (0-5); LYMPHOCYTES 27.4 % (15-50); MCH 29.7 pg (26.0-34.0); MCHC 31.4 g/dL (31.0-37.0); MEAN PLATELET VOLUME 10.7 fL (7.4-10.4); MONOCYTES 14.5 % (2-11); NEUTROPHILS 56.5 % (40-80); PLATELET COUNT 132 10x3/uL (130-400); RBC 4.24 10x6/uL (4.00-5.40); RDW 13.5 % (11.5-14.5); WBC 5.7 10x3/uL (4.8-10.8)
[2019-06-07 05:43] LABS: MCV 94.6 fL (80.0-100.0)
[2019-06-07 06:09] LABS: CALCIUM 8.4 mg/dL (8.5-10.1)
[2019-06-07 06:20] LABS: MAGNESIUM - SERUM 2.3 mg/dL (1.8-2.4)
[2019-06-07 06:21] LABS: ANION GAP 3.9 mmol/L (8-16)
[2019-06-07 06:22] LABS: CARBON DIOXIDE 43.8 mmol/L (21.0-32.0); POTASSIUM - SERUM 2.7 mmol/L (3.5-5.1)
[2019-06-07 07:14] LABS: IMMUNOGLOBULIN A 154 mg/dL (64-422); IMMUNOGLOBULIN G 800 mg/dL (700-1600)
--- NOTE | 2019-06-07 07:41 | NUR ---
REPORT RECEIVED. WILL CONTINUE WITH POC. PT CURRENTLY SITTING ON BEDSIDE TOILET. ASSISTED PT OFF OF TOILET, CLEANED PT AND PUT BACK TO BED. PT CURRENTLY LYING SEMI FOWLERS. CALL LIGHT W/I REACH. NO S/S OF DISTRESS NOTED. RR EVEN AND UNLABORED ON 2L 02. L.FOR PIV AND L.HAND PIV ARE SALINE LOCKED. THOMPSON IN PLACE AND DRAINING URINE. WILL CTM.
[2019-06-07 08:25] VITALS: BP 124/57
[2019-06-07] MEDS ORDERED: BETAPACE 80 MG80 MG PO (10:38)
[2019-06-07] MEDS ORDERED: PREDNISONE20 MG PO (10:57)
[2019-06-07 11:36] VITALS: BP 107/48
--- NOTE | 2019-06-07 14:55 | MORECARE ---
CASE MANAGEMENT DISCHARGE SUMMARY PATIENT: JAZMINE BALLARD UNIT: [id number] ADM DATE: 06/04/19 AGE: 74 : 44 SEX: F ROOM/BED: D.2132 AUTHOR: KAYLEY PEARCE PHYSICIAN: REFERRING PHYSICIAN: FLAKITA NAIDU MD DATE OF SERVICE: 06/07/19 Discharge Plan Patient Name: JAZMINE BALLARD Facility: [facility]:[place] : 1945 Planned Disposition: Home with Home Health Anticipated Discharge Date: 06/07/19 Discharge Date: Expected LOS: 3 Initial Reviewer: [email or web address] Initial Review Date: 06/07/2019 Generated: 06/07/19 3:55 pm External Providers External Provider: [facility] Next Contact Date: 06/07/2019 Service Request Date: Service Type: Resolution: Reviewer: Comments: Coverage Notice Reviewer: JESÚS Tinajero Notice Issued Date-Time: 06/07/2019 13:55 Notice Type: IM Discharge Notice Notice Delivered To: Family Member Relationship to Patient: Daughter Gill Box Fixer Name: ASH WOLF Delivery Method: HAND - Hand Delivered Ewa Days: Prior Verbal Notification: Recipient Understood Notice: Yes Recipient Signature: Yes Med Rec Note Co-signed by Attending: Coverage Notice Comment: Reviewer: JESÚS Tinajero Notice Issued Date-Time: 06/07/2019 13:55 Notice Type: Patient Choice Letter Notice Delivered To: Family Member Relationship to Patient: Daughter Gill Box Fixer Name: ASH WOLF Delivery Method: HAND - Hand Delivered Ewa Days: Prior Verbal Notification: Recipient Understood Notice: Yes Recipient Signature: Yes Med Rec Note Co-signed by Attending: Coverage Notice Comment: [facility] Patient Name: JAZMINE BALLARD Page [phone] at 1455 All edits/amendments must be made on the electronic document DICTATION DATE: 06/07/19 145 [employer]LE[employer] OPERATOR: MARY 06/07/19 145 RPT#: [id number] DC DATE: STATUS: ADM IN [facility] [address] [place] [address] END OF REPORT
--- NOTE | 2019-06-07 15:04 | MORECARE ---
CASE MANAGEMENT DISCHARGE SUMMARY PATIENT: JAZMINE BALLARD UNIT: [id number] ADM DATE: 06/04/19 AGE: 74 : 44 SEX: F ROOM/BED: D.6532 AUTHOR: RAMSES,DOC PHYSICIAN: REFERRING PHYSICIAN: FLAKITA NAIDU MD DATE OF SERVICE: 06/07/19 Discharge Plan Patient Name: JAZMINE BALLARD Facility: [facility]:[place] : 1945 Planned Disposition: Home with Home Health Anticipated Discharge Date: 06/07/19 Discharge Date: Expected LOS: 3 Initial Reviewer: [email or web address] Initial Review Date: 06/07/2019 Generated: 06/07/19 4:03 pm Comments DCP- Discharge Planning Updated by [id number]: Stan Tinajero on 06/07/19 2:[address] Patient Name: JAZMINE BALLARD Admission Status: ER Accout number: [id number] Admission Date: 06-04-2019 : 1945 Admission Diagnosis:HEART FAILURE, UNSPECIFIED Attending: FLAKITA NAIDU Current LOS: 3 Anticipated DC Date: 06-07-2019 Planned Disposition: Home with Home Health Primary Insurance: MEDICARE A & B PLANNED EXTERNAL PROVIDER: [facility] Discharge Planning Comments: CM MET WITH PTAND DAUGHTER IN ROOM TO DISCUSS DISCHARGE PLANNING AND NEEDS. JAZMINE BALLARD provided verbal consent to discuss current and ongoing needs with/in the presence of: DAUGHTERASH. PT REPORTS LIVING AT HOME DEPENDENT ON FAMILY FOR BATH, TOILETING, MED MANAGEMENT AND TRANSFERS. PT'S DAUGHTER LIVES IN THE [facility] AND ASSISTS WITH PT'S CARE. PT HAS CANE, GRAB BARS IN BATHROOM, SHOWER CHAIR, HOME AND PORTABLE OXYGEN, NEBULIZER, CANE AND ROLLATOR WALKER FROM [facility] [place]. PT HAS HOME HEALTH WITH [facility] FOR AIDE AND PHYSICAL THERAPY. PT HAS HOUSECALLS. CM DISCUSSED AVAILABILITY OF HOME HEALTH, REHAB SERVICES AND MEDICAL EQUIPMENT. PT DENIES DISCHARGE NEEDS, REPORTS HER DAUGHTER WILL PICK HER UP FOR DISCHARGE HOME. IMPORTANT MESSAGE FROM MEDICARE PROVIDED AND EXPLAINED. PT AND FAMILY WANT [facility] RESUMED. CHOICE SIGNED. CM CALLED [facility], , SPOKE TO SONIDO, REFERRAL PROVIDED, PT PLACED ON SCHEDULE FOR HOME HEALTH RESUMPTION. CM FAXED REFERRAL AND DISCHARGE INFORMATION TO [facility] AT [phone]. SOD STRIPPER NURSE NOTIFIED. Chief Controller Tower: Stan Tinajero DCPIA - Discharge Planning Initial Assessment Updated by JESÚS: Stan Tinajero on 06/07/19 2:57 pm * Is the patient Alert and Oriented? Yes * How many steps to enter\exit or inside your home? RAMP * PCP DR. HAY * Pharmacy [facility] * Preadmission Environment Home with Family * ADLs Partial Dependent * Partial ADLs (Assistance needed) Bathing Medication Management Toileting Transfers * Equipment Cane Grab Bars Nebulizer Oxygen Rolling Walker Shower Chair * Other Equipment HOME AND PORTABLE OXYGEN [facility] * List name and contact numbers for known caregivers / representatives who currently or will assist patient after discharge: ASH WOLF, DTR, * Verbal permission to speak to the caregivers and representatives has been obtained from the patient. Yes * Community resources currently utilized Home Health * Please name any agencies selected above. [facility] * Additional services required to return to the preadmission environment? No * Can the patient safely return to the preadmission environment? Yes * Has this patient been hospitalized within the prior 30 days at any hospital? Yes Coverage Notice Reviewer: JESÚS Tinajero Notice Issued Date-Time: 06/07/2019 13:55 Notice Type: IM Discharge Notice Notice Delivered To: Family Member Relationship to Patient: Daughter Pattern Worker Name: ASH WOLF Delivery Method: HAND - Hand Delivered Ewa Days: Prior Verbal Notification: Recipient Understood Notice: Yes Recipient Signature: Yes Med Rec Note Co-signed by Attending: Coverage Notice Comment: Reviewer: JESÚS Tinajero Notice Issued Date-Time: 06/07/2019 13:55 Notice Type: Patient Choice Letter Notice Delivered To: Family Member Relationship to Patient: Daughter Pattern Worker Name: ASH WOLF Delivery Method: HAND - Hand Delivered Ewa Days: Prior Verbal Notification: Recipient Understood Notice: Yes Recipient Signature: Yes Med Rec Note Co-signed by Attending: Coverage Notice Comment: [facility] Last DP export: 06/07/19 1:55 p Patient Name: JAZMINE BALLARD Page [phone] at 1504 All edits/amendments must be made on the electronic document DICTATION DATE: 06/07/191502 MANAGER HEALTH: MARY 06/07/191502 RPT#: [id number] DC DATE: STATUS: [facility] [address] [place] [address] END OF REPORT
--- NOTE | 2019-06-07 15:22 | NUR ---
PT DISCHARGED HOME VIA WHEELCHAIR WITH FAMILY. PIV REMOVED WITH CATHETER TIP FULLY INTACT. TELEMETRY REMOVED AND RETURNED. PT SIGNED PROPER DISCHARGE INSTRUCTION AND REMOVED ALL VALUABLES FROM THE ROOM.
--- NOTE | 2019-06-08 14:32 | CN ---
PATIENT NAME:JAZMINE HERMOSILLO MEDICAL RECORD: [id number] : 43 LOCATION:D. D.2132 ADMIT DATE: 06/04/19 ACCOUNT: [id number] CONSULTING PHYSICIAN: RYLEY BONNER MD REFERRING PHYSICIAN: FLAKITA NAIDU MD DATE OF CONSULTATION: 06/05/2019 CARDIOLOGY CONSULTATION DIAGNOSES: 1. Shortness of breath, dyspnea on exertion. 2. Pneumonia. 3. Congestive heart failure, chronic systolic dysfunction. 4. Coronary artery disease. 5. Previous percutaneous transluminal coronary angioplasty stent. 6. Hypertension. 7. Diabetes. 8. Paroxysmal atrial fibrillation. HISTORY OF PRESENT ILLNESS: Mrs. Hermosillo presents with increasing episodes of shortness of breath. She had no chest pain, no chest discomfort. She has a history of a cardiomyopathy, previous ejection fraction in the 40% range; however, last ejection fraction on echocardiogram within the past month was 55%. Chest x-ray is compatible with possible pneumonia with pulmonary edema. She is on IV Lasix. She has had a diuresis and she does feel better from a breathing standpoint. She has history of atrial fibrillation and is on sotalol. She has had some breakthroughs of atrial fibrillation that are been very minor. Overall, she has been in sinus rhythm. Troponin is normal. PHYSICAL EXAMINATION: CONSTITUTIONAL/GENERAL APPEARANCE: Well nourished, well developed, appears stated age. EYES: Lids and conjunctivae noninjected. No discharge. No pallor. ENT: Lips within normal limit. No cyanosis. No pallor. NECK: Carotid arteries, bilateral normal upstroke. No bruits. No thrills. No jugular venous pressure or distention. CERVICAL LYMPH NODES: Nontender. Nonenlarged. THYROID: Not enlarged. No nodules. CARDIOVASCULAR: Precordial exam, nondisplaced. No heaves or pericardial thrills. Rate and rhythm, regular. Heart sounds, normal S1, normal S2. No S3, no gallop, no rub. Systolic murmur, not heard. Diastolic murmur, not heard. RESPIRATORY: Respiratory effort, unlabored. Normal curvature. No thoracic deformity. No chest wall tenderness. Percussion, resonant. Auscultation, clear. No wheezes, no rales, no rhonchi. ABDOMEN: Soft, nondistended, nontender. No abdominal pain, no vomiting and normal appetite. MUSCULOSKELETAL: No joint tenderness, normal gait, normal tone. SKIN: Warm and dry. OVERALL IMPRESSION: Shortness of breath, dyspnea on exertion. I think this is more pneumonia infectious at this time. She has received 2 doses of IV Lasix. She has diuresed. I do not think she needs to continue the IV Lasix for very much longer. Her last ejection fraction was 55%. I do not need to reevaluate her ejection fraction as this was recently. We will continue with the sotalol as she has had overall sinus rhythm and very little breakthroughs of the atrial CONSULT REPORT [id number] JAZMINE HERMOSILLO fibrillation. TRANSINT:[id number] Voice Confirmation ID: [id number] DOCUMENT ID: [id number] RYLEY BONNER MD at 1432 CC: [id number] DICTATION DATE: 06/05/19 1048 GEOPHYSICAL LABORATORY CHIEF: 06/05/19 1121 DIS IN 06/07/19 [id number] [place] [address]
[2019-06-08 21:06] LABS: IGG SUBCLASS 1 506 mg/dL (248-810); IGG SUBCLASS 2 163 mg/dL (130-555); IGG SUBCLASS 3 64 mg/dL (15-102); IGG SUBCLASS 4 23 mg/dL (2-96); IGGS - IGG SERUM 803 mg/dL (700-1600)
[2019-06-09 11:10] LABS: IMMUNOGLOBULIN E 24 IU/mL (6-495)
== END 2019-06-07 15:23 | disposition home health service (06) | DRG 291 ==
LOC: D.ER 21:15 → D.M2 22:46
PROVIDERS: Family Medicine; Internal Medicine Pulmonary Disease; ADMIT Internal Medicine Nephrology; ATTEND Internal Medicine Nephrology
DX: I11.0 Hypertensive heart disease with heart failure (principal); J18.9 Pneumonia, unspecified organism; J96.21 Acute and chronic respiratory failure with hypoxia; J96.22 Acute and chronic respiratory failure with hypercapnia; J44.1 Chronic obstructive pulmonary disease with (acute) exacerbation; J44.0 Chronic obstructive pulmonary disease with (acute) lower respiratory infection; J98.11 Atelectasis; I50.23 Acute on chronic systolic (congestive) heart failure; Z99.81 Dependence on supplemental oxygen; I25.10 Atherosclerotic heart disease of native coronary artery without angina pectoris; G47.33 Obstructive sleep apnea (adult) (pediatric); I07.1 Rheumatic tricuspid insufficiency; D69.6 Thrombocytopenia, unspecified; I27.20 Pulmonary hypertension, unspecified; E66.9 Obesity, unspecified; Z68.35 Body mass index [BMI] 35.0-35.9, adult; F41.9 Anxiety disorder, unspecified; E11.65 Type 2 diabetes mellitus with hyperglycemia; E87.6 Hypokalemia; E83.42 Hypomagnesemia; M17.10 Unilateral primary osteoarthritis, unspecified knee; Z91.81 History of falling; E03.9 Hypothyroidism, unspecified; I48.0 Paroxysmal atrial fibrillation; R25.1 Tremor, unspecified

== ENCOUNTER 2019-06-20 11:08 | Emergency (ER) | payer MEDICARE ==
[~2019-06-20] VITALS: Ht 165.1 cm; Wt 127.3 kg
[~2019-06-20 11:08] MED LIST changes: +BETAPACE 80 MG80 MG PO; +PREDNISONE20 MG PO
[2019-06-20 11:15] VITALS: Ht 165.1 cm; Wt 127.3 kg
[2019-06-20 11:50] LABS: BASOPHILS 0.6 % (0-2); EOSINOPHILS 4.1 % (0-7); HEMATOCRIT 47.1 % (36.0-48.0); HEMOGLOBIN 15.4 g/dL (12-16); IMMATURE GRANULOCYTES 0.1 % (0-5); LYMPHOCYTES 36.1 % (15-50); MCH 30.7 pg (26.0-34.0); MCHC 32.7 g/dL (31.0-37.0); MCV 93.8 fL (80.0-100.0); MEAN PLATELET VOLUME 12.2 fL (7.4-10.4); MONOCYTES 10.3 % (2-11); NEUTROPHILS 48.8 % (40-80); PLATELET COUNT 121 10x3/uL (130-400); RBC 5.02 10x6/uL (4.00-5.40); RDW 13.2 % (11.5-14.5); WBC 7.3 10x3/uL (4.8-10.8)
[2019-06-20 12:09] LABS: ALBUMIN 3.3 g/dL (3.4-5.0); ANION GAP 10.7 mmol/L (8-16); BILIRUBIN - TOTAL 0.37 mg/dL (0.2-1.3); CARBON DIOXIDE 35.3 mmol/L (21.0-32.0); PROTEIN - SERUM 7.1 g/dL (6.4-8.2)
[2019-06-20 12:54] LABS: CKMB 1.2 U/L (0.0-3.6); CREATINE KINASE 55 UL (21-215); LIPASE 104 U/L (73-393); MAGNESIUM - SERUM 1.3 mg/dL (1.8-2.4); THYROID STIMULATING HORMONE 2.46 uIU/mL (0.36-3.74)
[2019-06-20 12:56] LABS: TROPONIN-I < 0.017 ng/mL (0.000-0.060)
[2019-06-20 14:10] LABS: APPEARANCE CLEAR (CLEAR); COLOR YELLOW (YELLOW); NITRITE NEGATIVE (NEGATIVE); PROTEIN TRACE mg/dL (NEGATIVE); SPECIFIC GRAVITY 1.015 (1.005-1.020)
[2019-06-20 14:11] LABS: BACTERIA FEW /hpf (NEGATIVE); BILIRUBIN NEGATIVE (NEGATIVE); EPITHELIAL CELLS 0-5 /hpf (0-5); GLUCOSE NEGATIVE (NEGATIVE); KETONE NEGATIVE (NEGATIVE); MUCUS <1+ /lpf (NONE SEEN); RED CELLS - URINE 0-5 /hpf (0-5); UROBILINOGEN NORMAL (NORMAL); WHITE CELLS - URINE RARE /hpf (NEGATIVE)
[2019-06-20 15:38] VITALS: BP 132/87
== END 2019-06-20 15:30 | disposition home or self-care (01) ==
LOC: D.ER 11:08
PROVIDERS: Family Medicine
DX: I48.91 Unspecified atrial fibrillation (principal); I50.9 Heart failure, unspecified; E87.6 Hypokalemia; E83.42 Hypomagnesemia; F32.9 Major depressive disorder, single episode, unspecified; E11.9 Type 2 diabetes mellitus without complications

== ENCOUNTER → 2019-07-13 14:38 | Outpatient (CLI) | payer MEDICARE ==
[2019-06-20 11:15] VITALS: BMI 46.6
[~2019-07-13 14:38] MED LIST changes: +BETAPACE 120 M120 MG PO; +FUROSEMIDE10 MG/M1; +FUROSEMIDE20 MG PO; +PLAVIX75 MG PO
[2019-07-13 16:29] LABS: APPEARANCE CLEAR (CLEAR); BILIRUBIN NEGATIVE (NEGATIVE); COLOR YELLOW (YELLOW); GLUCOSE NEGATIVE (NEGATIVE); KETONE NEGATIVE (NEGATIVE); NITRITE NEGATIVE (NEGATIVE); PROTEIN NEGATIVE (NEGATIVE); UROBILINOGEN NORMAL (NORMAL)
[2019-07-13 16:30] LABS: BACTERIA MODERATE /hpf (NEGATIVE); RED CELLS - URINE OCC /hpf (0-5); WHITE CELLS - URINE 0-5 /hpf (NEGATIVE)
== END | disposition home or self-care (01) ==
LOC: D.LABREF 14:38
PROVIDERS: ATTEND Emergency Medicine
DX: I50.20 Unspecified systolic (congestive) heart failure (principal); E11.9 Type 2 diabetes mellitus without complications

== ENCOUNTER 2019-07-29 17:44 | Emergency (ER) | payer MEDICARE ==
[~2019-07-29] VITALS: Ht 165.1 cm; Wt 104.5 kg
[~2019-07-29 17:44] MED LIST changes: -BETAPACE 120 M120 MG PO; -FUROSEMIDE10 MG/M1; -FUROSEMIDE20 MG PO; -PLAVIX75 MG PO
[2019-07-29 17:48] VITALS: Ht 165.1 cm; Wt 104.5 kg
[2019-07-29 18:27] LABS: APPEARANCE CLEAR (CLEAR); BILIRUBIN NEGATIVE (NEGATIVE); COLOR YELLOW (YELLOW); GLUCOSE NEGATIVE (NEGATIVE); KETONE NEGATIVE (NEGATIVE); NITRITE NEGATIVE (NEGATIVE); PROTEIN NEGATIVE (NEGATIVE); UROBILINOGEN NORMAL (NORMAL)
[2019-07-29 18:58] LABS: BASOPHILS 0.4 % (0-2); EOSINOPHILS 2.9 % (0-7); HEMATOCRIT 47.7 % (36.0-48.0); HEMOGLOBIN 14.3 g/dL (12-16); IMMATURE GRANULOCYTES 0.3 % (0-5); LYMPHOCYTES 27.3 % (15-50); MCH 30.2 pg (26.0-34.0); MCV 100.8 fL (80.0-100.0); MEAN PLATELET VOLUME 11.4 fL (7.4-10.4); MONOCYTES 8.7 % (2-11); NEUTROPHILS 60.4 % (40-80); PLATELET COUNT 123 10x3/uL (130-400); RBC 4.73 10x6/uL (4.00-5.40); RDW 13.2 % (11.5-14.5); WBC 6.8 10x3/uL (4.8-10.8)
[2019-07-29 19:46] LABS: ALBUMIN 3.2 g/dL (3.4-5.0); ANION GAP 5.1 mmol/L (8-16); BILIRUBIN - TOTAL 0.33 mg/dL (0.2-1.3); CALCIUM 9.2 mg/dL (8.5-10.1); CREATININE - SERUM 0.9 mg/dL (0.6-1.3); POTASSIUM - SERUM 4.4 mmol/L (3.5-5.1); PROTEIN - SERUM 6.7 g/dL (6.4-8.2)
[2019-07-29 19:47] LABS: CARBON DIOXIDE 41.3 mmol/L (21.0-32.0)
[2019-07-29 22:19] VITALS: BP 152/79
== END 2019-07-29 22:19 | disposition home or self-care (01) ==
LOC: D.ER 17:44
PROVIDERS: Family Medicine
DX: R33.9 Retention of urine, unspecified (principal); E11.9 Type 2 diabetes mellitus without complications; I48.91 Unspecified atrial fibrillation

== ENCOUNTER 2019-07-30 15:49 | Inpatient (IN) | payer MEDICARE ==
[~2019-07-30] VITALS: Ht 165.1 cm; Wt 116.0 kg
[2019-07-30 16:15] VITALS: BP 139/69
--- NOTE | 2019-07-30 16:30 | NUR ---
THOMPSON CATH IN PLACE UPON ARRIVAL. URINE SAMPLE OBTAINED FROM SAMPLING PORT AND SENT TO THE LAB.
[2019-07-30 16:41] LABS: BASOPHILS 0.3 % (0-2); EOSINOPHILS 2.4 % (0-7); HEMATOCRIT 48.6 % (36.0-48.0); HEMOGLOBIN 14.5 g/dL (12-16); IMMATURE GRANULOCYTES 0.1 % (0-5); MCHC 29.8 g/dL (31.0-37.0); MCV 100.4 fL (80.0-100.0); MEAN PLATELET VOLUME 11.6 fL (7.4-10.4); MONOCYTES 10.2 % (2-11); PLATELET COUNT 112 10x3/uL (130-400); RBC 4.84 10x6/uL (4.00-5.40); RDW 13.3 % (11.5-14.5); WBC 7.6 10x3/uL (4.8-10.8)
[2019-07-30 16:44] LABS: CALC OSMOLALITY 287 mosm/kg (275-300); CALCIUM 8.8 mg/dL (8.5-10.1); CARBON DIOXIDE 39.7 mmol/L (21.0-32.0); CHLORIDE - SERUM 100 mmol/L (98-107); CREATININE - SERUM 1.1 mg/dL (0.6-1.3); GLUCOSE 106 mg/dL (74-106); POTASSIUM - SERUM 4.8 mmol/L (3.5-5.1); SODIUM 144 mmol/L (136-145); UREA NITROGEN 14 mg/dL (7-18); eGFR NON AFRICAN AMERICAN 51 mL/min (90-120)
[2019-07-30 16:45] LABS: INR 1.02 (0.85-1.17); PROTIME 12.9 SECONDS (11.6-15.0)
[2019-07-30 16:49] LABS: APPEARANCE CLEAR (CLEAR); BILIRUBIN NEGATIVE (NEGATIVE); COLOR STRAW (YELLOW); GLUCOSE NEGATIVE (NEGATIVE); KETONE NEGATIVE (NEGATIVE); NITRITE NEGATIVE (NEGATIVE); PROTEIN NEGATIVE (NEGATIVE); UROBILINOGEN NORMAL (NORMAL)
[2019-07-30 16:54] LABS: BACTERIA NONE SEEN /hpf (NEGATIVE); EPITHELIAL CELLS 0-5 /hpf (0-5); RED CELLS - URINE 0-5 /hpf (0-5); WHITE CELLS - URINE NSEEN /hpf (NEGATIVE)
[2019-07-30 17:09] LABS: ALBUMIN 3.1 g/dL (3.4-5.0); ALKALINE PHOSPHATASE 91 U/L (46-116); ALT (SGPT) 54 U/L (10-68); BILIRUBIN - TOTAL 0.38 mg/dL (0.2-1.3); CKMB 0.5 U/L (0.0-3.6); CREATINE KINASE 75 UL (21-215); PROTEIN - SERUM 7.1 g/dL (6.4-8.2); TROPONIN-I < 0.017 ng/mL (0.000-0.060)
[2019-07-30 18:45] VITALS: BP 137/69
[2019-07-30 19:30] VITALS: BP 146/67
--- NOTE | 2019-07-30 20:05 | NUR ---
PT TRANSPORTED TO RADIOLOGY FOR V-Q SCAN. TECH TO TAKE PT TO FLOOR WHEN SCAN IS COMPLETE.
--- NOTE | 2019-07-30 20:37 | NUR ---
PATIENT REFUSED V/Q SCAN. PATIENT EXTREMELY CLAUSTROPHOBIC. PATIENT STATED HER BACK HURTS TOO BAD TO LIE ON NUCLEAR MEDICINE TABLE FOR PERFUSION ONLY. INFORMED CLEVE LUKE AND NURSE ASH AND NURSE CANAS.
[2019-07-30 21:19] VITALS: BP 134/62; Ht 165.1 cm; Wt 116.0 kg
--- NOTE | 2019-07-30 21:52 | NUR ---
MORPHINE 1MG SIVP GIVEN FOR C/O CHRONIC BACK PAIN. FSBS 93. NO COVERGE NEEDED. ADMISSION ASSESSMENT, HISTORY AND HOME MED LIST COMPLETED. PT ALERT AND ORIENTED TO PERSON,PLACE AND TIME. CAGLE. O2 2LNC. LUNGS DIMINISHED IN BASES BILAT. PALPABLE PERIPHERAL PULSES. IV TO RAC LOREN. JAY DRAINING YELLOW URINE. DAUGHTER AT BEDSIDE. SR UP X2,CALL LIGHT WITHIN REACH AND BED ALARM ON.
[2019-07-30 23:00] VITALS: BP 119/62
--- NOTE | 2019-07-30 23:50 | NUR ---
PT RESTING WITH EYES CLOSED. RESP EVEN AND REGULAR. SR UP X2, CALL LIGHT WITHIN REACH, BED ALARM ON AND FAMILY AT BEDSIDE.
--- NOTE | 2019-07-31 01:45 | NUR ---
PT RESTING WITH EYES CLOSED. RESP EVEN AND REGULAR. SR UP X2, CALL LIGHT WITHIN REACH, BED ALARM ON AND DAUGHTER AT BEDSIDE.
--- NOTE | 2019-07-31 03:11 | NUR ---
PT RESTING WITH EYES CLOSED. RESP EVEN AND REGULAR. SR UP X2, CALL LIGHT WITHIN REACH AND BED ALARM ON.
[2019-07-31 04:00] VITALS: BP 149/62
--- NOTE | 2019-07-31 07:00 | NUR ---
RECIEVE REPORT. RESTING IN BED WITH EYES CLOSED. DAUGHTER AT BEDSIDE. RESPIRATIONS NONLABORED. THOMPSON SECURED TO INNER THIGH FREE FROM KINKS FLOW BY GRAVITY. NO SIGNS OF DISTRESS. CONTINUE PLAN OF CARE AND SAFETY PRECAUTIONS.
[2019-07-31 08:45] VITALS: BP 139/67
[2019-07-31 13:09] VITALS: BP 125/67
--- NOTE | 2019-07-31 17:49 | NUR ---
ALERT AND ORIENTED X4. SITTING UP IN BED. DAUGHTER AT BEDSIDE. SINUS RYTHM ON TELEMETRY. THOMPSON DRAINING BY GRAVITY FREE FROM KINKS. DENIES ANY NEEDS. CONTINUE PLAN OF CARE AND SAFETY PRECAUTIONS.
[2019-07-31 17:57] VITALS: BP 149/62
--- NOTE | 2019-07-31 19:15 | NUR ---
RECEIVED REPORT, WILL ASSUME CARE OF PT, ASKING FOR PAIN MEDS, WILL PROVIDE, BED IS LOW, SRX2, CALL LIGHT IN REACH, FAMILY AT BED SIDE, WILL CONTINUE PLAN OF CARE
[2019-07-31 20:00] VITALS: BP 139/74
[2019-08-01 00:23] VITALS: BP 134/69
--- NOTE | 2019-08-01 02:53 | NUR ---
I have reviewed this patient and I concur with the Shift Assessment completed by the Licensed Practical Nurse today this shift.
[2019-08-01 04:00] VITALS: BP 152/73
[2019-08-01 06:35] LABS: BASOPHILS 0 % (0-2); EOSINOPHILS 2.8 % (0-7); HEMATOCRIT 44.3 % (36.0-48.0); HEMOGLOBIN 12.9 g/dL (12-16); IMMATURE GRANULOCYTES 0.2 % (0-5); LYMPHOCYTES 28.5 % (15-50); MCH 29.9 pg (26.0-34.0); MCHC 29.1 g/dL (31.0-37.0); MEAN PLATELET VOLUME 11.9 fL (7.4-10.4); MONOCYTES 12.4 % (2-11); NEUTROPHILS 56.1 % (40-80); PLATELET COUNT 126 10x3/uL (130-400); RBC 4.31 10x6/uL (4.00-5.40); RDW 13.3 % (11.5-14.5)
[2019-08-01 06:46] LABS: MCV 102.8 fL (80.0-100.0); WBC 5.3 10x3/uL (4.8-10.8)
[2019-08-01 06:48] LABS: CALCIUM 8.8 mg/dL (8.5-10.1); MAGNESIUM - SERUM 1.7 mg/dL (1.8-2.4)
[2019-08-01 06:55] LABS: ANION GAP 5.8 mmol/L (8-16); CREATININE - SERUM 0.8 mg/dL (0.6-1.3); POTASSIUM - SERUM 3.4 mmol/L (3.5-5.1)
[2019-08-01 06:57] LABS: CARBON DIOXIDE 41.6 mmol/L (21.0-32.0)
[2019-08-01 10:12] VITALS: BP 144/64
--- NOTE | 2019-08-01 13:03 | NUR ---
Rehab Prescreening Consult recieved and the chart has been reviewed. She has not been ambulated with PT and has an OT eval pending. Rehab will follow to see if she can tolerate the required 3 hrs of therapy a day. Jessica Gallego RN Clinical Liaison, Rehab
[2019-08-01 15:01] LABS: % SATURATION 18 % (15-55); IRON 57 ug/dl (35-150); TOTAL IRON BIND CAPACITY 305 ug/dl (260-445); UNSAT IRON BIND CAPACITY 248 ug/dl (150-375)
--- NOTE | 2019-08-01 19:25 | NUR ---
PATIENT RESTING IN BED WITH NO S/S OF DISTRESS AND DENIES NEEDS AT THIS TIME. BED IN LOWEST POSITION AND CALL LIGHT WITHIN REACH. ENCOURAGED THE PATIENT TO CALL IF SHE HAS NEEDS. WILL CONTINUE TO MONITOR.
--- NOTE | 2019-08-01 19:31 | MORECARE ---
CASE MANAGEMENT DISCHARGE SUMMARY PATIENT: JAZMINE BALLARD UNIT: [id number] ADM DATE: 07/30/19 AGE: 74 : 44 SEX: F ROOM/BED: D.1207 AUTHOR: KAYLEY PEARCE PHYSICIAN: REFERRING PHYSICIAN: WANG SEARS MD DATE OF SERVICE: 08/01/19 Discharge Plan Patient Name: JAZMINE BALLARD Facility: [facility]:[place] : 1945 Planned Disposition: Inpatient Rehab Anticipated Discharge Date: Discharge Date: Expected LOS: Initial Reviewer: [id number] Initial Review Date: 08/01/2019 Generated: 08/01/19 8:31 pm DCPIA - Discharge Planning Initial Assessment Updated by [email or web address]: Chelsea James on 08/01/19 7:30 pm * Is the patient Alert and Oriented? Yes * How many steps to enter\exit or inside your home? ramp * PCP SATNAM * [facility] * Preadmission Environment Home with Family * ADLs Partial Dependent * Partial ADLs (Assistance needed) Ambulation Bathing Dressing Eating Medication Management Toileting Transfers * Other Equipment W/C, WALKER, NEBULIZER, CANE, 02 / PORTABLE, BSC * List name and contact numbers for known caregivers / representatives who currently or will assist patient after discharge: ASH WOLF - DAUGHTER - [phone] MARQUISE MOSQUERA - DAUGHTER - [phone] * Verbal permission to speak to the caregivers and representatives has been obtained from the patient. Yes * Community resources currently utilized Home Health * Please name any agencies selected above. [facility] - [place] SIGNED TO RESUME * Additional services required to return to the preadmission environment? No * Can the patient safely return to the preadmission environment? Yes * Has this patient been hospitalized within the prior 30 days at any hospital? No Patient Name: JAZMINE BALLARD Page [phone] at 1931 All edits/amendments must be made on the electronic document DICTATION DATE: 08/01/191930 PAPER FOLDER: MARY 08/01/191930 RPT#: [id number] DC DATE: STATUS: ADM IN [facility] [address] [place] [address] END OF REPORT
--- NOTE | 2019-08-01 19:38 | MORECARE ---
CASE MANAGEMENT DISCHARGE SUMMARY PATIENT: JAZMINE BALLARD UNIT: [id number] ADM DATE: 07/30/19 AGE: 74 : 44 SEX: F ROOM/BED: D.1207 AUTHOR: RAMSES,DOC PHYSICIAN: REFERRING PHYSICIAN: WANG SEARS MD DATE OF SERVICE: 08/01/19 Discharge Plan Patient Name: JAZMINE BALLARD Facility: [facility]:[place] : 1945 Planned Disposition: Inpatient Rehab Anticipated Discharge Date: Discharge Date: Expected LOS: Initial Reviewer: [email or web address] Initial Review Date: 08/01/2019 Generated: 08/01/19 8:37 pm Comments DCP- Discharge Planning Updated by [id number]: Chelsea James on 08/01/19 6:[address] Patient Name: JAZMINE BALLARD Admission Status: ER Accout number: [id number] Admission Date: 07-30-2019 : 1945 Admission Diagnosis: Attending: RENU, Current LOS: 2 Anticipated DC Date: Planned Disposition: Inpatient Rehab Primary Insurance: MEDICARE A & B Discharge Planning Comments: CM met with patient to complete initial dc planning assessment. CM educated patient on the CM role and verbal consent given by patient to complete assessment. Patient lives at home with her daughter and son-n-law where she is partially dependent with her care. At discharge patient plans to return home and feels this is a safe discharge. CM discussed availability of home health, rehab services, and medical equipment. Her daughter will be her school boat driver home. Patient has a nebulizer and home o2 ( [employer] ) Patient plans to resume care with [facility] signed. Patient would like inpatient rehab before returning home. Patient was walking at home a week ago then had several falls. CM will continue to follow and will assist as needed with dc plans/needs. Weaving Instructor: Chelsea James DCPIA - Discharge Planning Initial Assessment Updated by [email or web address]: Chelsea James on 08/01/19 7:30 pm * Is the patient Alert and Oriented? Yes * How many steps to enter\exit or inside your home? ramp * PCP SATNAM * Pharmacy [facility] * Preadmission Environment Home with Family * ADLs Partial Dependent * Partial ADLs (Assistance needed) Ambulation Bathing Dressing Eating Medication Management Toileting Transfers * Other Equipment W/C, WALKER, NEBULIZER, CANE, 02 / PORTABLE, BSC * List name and contact numbers for known caregivers / representatives who currently or will assist patient after discharge: ROSLYN SMART - DAUGHTER - [phone] MARQUISE MOSQUERA - DAUGHTER - [phone] * Verbal permission to speak to the caregivers and representatives has been obtained from the patient. Yes * Community resources currently utilized Home Health * Please name any agencies selected above. [facility] - [facility] SIGNED TO RESUME * Additional services required to return to the preadmission environment? No * Can the patient safely return to the preadmission environment? Yes * Has this patient been hospitalized within the prior 30 days at any hospital? No Coverage Notice Reviewer: [id number] Lobo James Notice Issued Date-Time: 08/01/2019 14:00 Notice Type: Patient Choice Letter Notice Delivered To: Family Member Relationship to Patient: Daughter Pattern Maker Programer Name: Roslyn Smart Delivery Method: - Ewa Days: Prior Verbal Notification: Recipient Understood Notice: Recipient Signature: Med Rec Note Co-signed by Attending: Coverage Notice Comment: Last DP export: 08/01/19 6:31 p Patient Name: JAZMINE BALLARD Page [phone] at 1938 All edits/amendments must be made on the electronic document DICTATION DATE: 08/01/191936 CORE ANALYSIS OPERATOR: MARY 08/01/191936 RPT#: [id number] ND DATE: STATUS: ADM IN [facility] [address] [place] [address] END OF REPORT
[2019-08-01 19:55] VITALS: BP 145/66
[2019-08-01 23:51] VITALS: BP 121/58
[2019-08-02 05:09] VITALS: BP 174/78
[2019-08-02 06:30] LABS: BASOPHILS 0.2 % (0-2); EOSINOPHILS 2.3 % (0-7); HEMATOCRIT 44.4 % (36.0-48.0); HEMOGLOBIN 13.2 g/dL (12-16); LYMPHOCYTES 30.2 % (15-50); MCHC 29.7 g/dL (31.0-37.0); MCV 100.9 fL (80.0-100.0); MEAN PLATELET VOLUME 11.7 fL (7.4-10.4); MONOCYTES 10.5 % (2-11); NEUTROPHILS 56.8 % (40-80); PLATELET COUNT 130 10x3/uL (130-400); RDW 13.2 % (11.5-14.5); WBC 6.1 10x3/uL (4.8-10.8)
[2019-08-02 06:44] LABS: CALC OSMOLALITY 281 mosm/kg (275-300); CALCIUM 9.3 mg/dL (8.5-10.1); CHLORIDE - SERUM 98 mmol/L (98-107); CREATININE - SERUM 0.7 mg/dL (0.6-1.3); GLUCOSE 116 mg/dL (74-106); POTASSIUM - SERUM 3.9 mmol/L (3.5-5.1); SODIUM 141 mmol/L (136-145); UREA NITROGEN 12 mg/dL (7-18); eGFR NON AFRICAN AMERICAN 86 mL/min (90-120)
[2019-08-02 07:10] LABS: CARBON DIOXIDE 40.7 mmol/L (21.0-32.0)
[2019-08-02 08:01] VITALS: BP 146/72
--- NOTE | 2019-08-02 08:35 | NUR ---
AM MEDS GIVEN AT THIS TIME. PT TOOK MEDICATIONS WITH NO TROUBLE SWALLOWING, REFUSED THE NORCO. PT A/O X4, RESP EVEN AND NONLABORED ON RA. PT DENIES ANY NEEDS AT THIS TIME. CALL LIGHT IN REACH,NAD NOTED, WILL CONTINUE TO MONITOR.
--- NOTE | 2019-08-02 08:42 | NUR ---
CALLED PHARMACY AND SPOKE WITH MAXIMO, REGANED HER THAT I NEED CELEXA FOR PT.
[2019-08-02 12:22] VITALS: BP 144/69
--- NOTE | 2019-08-02 13:22 | NUR ---
ASKED PT IF SHE WANTED TO GET FLU SHOT AND PT REFUSED.
--- NOTE | 2019-08-02 13:49 | NUR ---
REPORT CALLED TO BERNARDO NURSE WHO WILL BE TAKING CARE OF PT.
--- NOTE | 2019-08-02 14:16 | NUR ---
PROVIDED VERBAL AND WRITTEN DISCHARGE TEACHING TO PT WHO VERBALIZED UNDERSTANDING REGARDING TEACHING. D/C LT FA IV WITH CATHETER TIP INTACT. TRANSFERED PT TO REHAB VIA BED WITH ALL BELONGINGS. NAD NOTED.
--- NOTE | 2019-08-02 15:58 | MORECARE ---
CASE MANAGEMENT DISCHARGE SUMMARY PATIENT: JAZMINE BALLARD UNIT: [id number] ADM DATE: 07/30/19 AGE: 74 : 44 SEX: F ROOM/BED: D.1207 AUTHOR: RAMSES,DOC PHYSICIAN: REFERRING PHYSICIAN: WANG SEARS MD DATE OF SERVICE: 08/02/19 Discharge Plan Patient Name: JAZMINE BALLARD Facility: [facility]:[place] : 1945 Planned Disposition: Inpatient Rehab Anticipated Discharge Date: Discharge Date: 08/02/2019 Expected LOS: Initial Reviewer: [email or web address] Initial Review Date: 08/01/2019 Generated: 08/02/19 4:58 pm Comments DCP- Discharge Planning Updated by [email or web address]: Chelsea James on 08/02/19 2:[address] Patient Name: JAZMINE BALLARD Encounter No: [id number] : 1945 Primary Insurance: MEDICARE A & B Anticipated DC Date: Planned Disposition: Inpatient Rehab External Planned Provider: : [facility] IMM SIGNED 08/02/19 @ 1210 DCP follow-up note: Patient and family in agreement with discharge plan. No changes to plan. Case management will follow and assist as needed. Chelsea James DCP- Discharge Planning Updated by [email or web address]: Chelsea James on 08/01/19 6:[address] Patient Name: JAZMINE BALLARD Admission Status: ER Accout number: [id number] Admission Date: 07-30-2019 : 1945 Admission Diagnosis: Attending: RENU, Current LOS: 2 Anticipated DC Date: Planned Disposition: Inpatient Rehab Primary Insurance: MEDICARE A & B Discharge Planning Comments: CM met with patient to complete initial dc planning assessment. CM educated patient on the CM role and verbal consent given by patient to complete assessment. Patient lives at home with her daughter and son-n-law where she is partially dependent with her care. At discharge patient plans to return home and feels this is a safe discharge. CM discussed availability of home health, rehab services, and medical equipment. Her daughter will be her trolley coach driver home. Patient has a nebulizer and home o2 ( [employer] ) Patient plans to resume care with [facility] - [facility] signed. Patient would like inpatient rehab before returning home. Patient was walking at home a week ago then had several falls. CM will continue to follow and will assist as needed with dc plans/needs. Roller Pneumatic: Chelsea James DCPIA - Discharge Planning Initial Assessment Updated by [id number]: Chelsea James on 08/01/19 7:30 pm * Is the patient Alert and Oriented? Yes * How many steps to enter\exit or inside your home? ramp * PCP SATNAM * [facility] * Preadmission Environment Home with Family * ADLs Partial Dependent * Partial ADLs (Assistance needed) Ambulation Bathing Dressing Eating Medication Management Toileting Transfers * Other Equipment W/C, WALKER, NEBULIZER, CANE, 02 / PORTABLE, BSC * List name and contact numbers for known caregivers / representatives who currently or will assist patient after discharge: ROSLYN SMART - DAUGHTER - [phone] MARQUISE MOSQUERA - DAUGHTER - [phone] * Verbal permission to speak to the caregivers and representatives has been obtained from the patient. Yes * Community resources currently utilized Home Health * Please name any agencies selected above. JJ Lobo [facility] SIGNED TO RESUME * Additional services required to return to the preadmission environment? No * Can the patient safely return to the preadmission environment? Yes * Has this patient been hospitalized within the prior 30 days at any hospital? No Coverage Notice Reviewer: [id number] Lobo James Notice Issued Date-Time: 08/01/2019 14:00 Notice Type: Patient Choice Letter Notice Delivered To: Family Member Relationship to Patient: Daughter Speech Scientist Name: Roslyn Smart Delivery Method: - Ewa Days: Prior Verbal Notification: Recipient Understood Notice: Recipient Signature: Med Rec Note Co-signed by Attending: Coverage Notice Comment: Reviewer: [id number] Lobo James Notice Issued Date-Time: 08/02/2019 12:10 Notice Type: IM Discharge Notice Notice Delivered To: Family Member Relationship to Patient: Daughter Speech Scientist Name: ROSLYN SMART Delivery Method: HAND - Hand Delivered Ewa Days: Prior Verbal Notification: Recipient Understood Notice: Yes Recipient Signature: Yes Med Rec Note Co-signed by Attending: Coverage Notice Comment: Last DP export: 08/01/19 6:38 p Patient Name: JAZMINE BALLARD Page [phone] at 1558 All edits/amendments must be made on the electronic document DICTATION DATE: 08/02/191557 CO FOUNDER AND CHAIRMAN: MARY 08/02/191557 RPT#: [id number] DC DATE:08/02/19 STATUS: DIS IN [facility] [address] [place] [address] END OF REPORT
--- NOTE | 2019-08-02 16:11 | MORECARE ---
CASE MANAGEMENT DISCHARGE SUMMARY PATIENT: JAZMINE BALLARD UNIT: [id number] ADM DATE: 07/30/19 AGE: 74 : 44 SEX: F ROOM/BED: D.1207 AUTHOR: RAMSES,DOC PHYSICIAN: REFERRING PHYSICIAN: WANG SEARS MD DATE OF SERVICE: 08/02/19 Discharge Plan Patient Name: JAZMINE BALLARD Facility: [facility]:[place] : 1945 Planned Disposition: Inpatient Rehab Anticipated Discharge Date: Discharge Date: 08/02/2019 Expected LOS: Initial Reviewer: [email or web address] Initial Review Date: 08/01/2019 Generated: 08/02/19 5:10 pm Comments DCP- Discharge Planning Updated by [id number]: Chelsea James on 08/02/19 2:[address] Patient Name: JAZMINE BALLARD Encounter No: [id number] : 1945 Primary Insurance: MEDICARE A & B Anticipated DC Date: Planned Disposition: Inpatient Rehab External Planned Provider: : [facility] IMM SIGNED 08/02/19 @ 1210 DCP follow-up note: Patient and family in agreement with discharge plan. No changes to plan. Case management will follow and assist as needed. Chelsea James DCP- Discharge Planning Updated by [email or web address]: Chelsea James on 08/01/19 6:[address] Patient Name: JAZMINE BALLARD Admission Status: ER Accout number: [id number] Admission Date: 07-30-2019 : 1945 Admission Diagnosis: Attending: RENU, Current LOS: 2 Anticipated DC Date: Planned Disposition: Inpatient Rehab Primary Insurance: MEDICARE A & B Discharge Planning Comments: CM met with patient to complete initial dc planning assessment. CM educated patient on the CM role and verbal consent given by patient to complete assessment. Patient lives at home with her daughter and son-n-law where she is partially dependent with her care. At discharge patient plans to return home and feels this is a safe discharge. CM discussed availability of home health, rehab services, and medical equipment. Her daughter will be her city driver home. Patient has a nebulizer and home o2 ( [employer] ) Patient plans to resume care with [facility] - [facility] signed. Patient would like inpatient rehab before returning home. Patient was walking at home a week ago then had several falls. CM will continue to follow and will assist as needed with dc plans/needs. Appraiser Land: Chelsea James DCPIA - Discharge Planning Initial Assessment Updated by [id number]: Chelsea James on 08/01/19 7:30 pm * Is the patient Alert and Oriented? Yes * How many steps to enter\exit or inside your home? ramp * PCP SATNAM * [facility] * Preadmission Environment Home with Family * ADLs Partial Dependent * Partial ADLs (Assistance needed) Ambulation Bathing Dressing Eating Medication Management Toileting Transfers * Other Equipment W/C, WALKER, NEBULIZER, CANE, 02 / PORTABLE, BSC * List name and contact numbers for known caregivers / representatives who currently or will assist patient after discharge: ROSLYN SMART - DAUGHTER - [phone] MARQUISE MOSQUERA - DAUGHTER - [phone] * Verbal permission to speak to the caregivers and representatives has been obtained from the patient. Yes * Community resources currently utilized Home Health * Please name any agencies selected above. JJ Lobo [facility] SIGNED TO RESUME * Additional services required to return to the preadmission environment? No * Can the patient safely return to the preadmission environment? Yes * Has this patient been hospitalized within the prior 30 days at any hospital? No Coverage Notice Reviewer: [id number] Lobo James Notice Issued Date-Time: 08/01/2019 14:00 Notice Type: Patient Choice Letter Notice Delivered To: Family Member Relationship to Patient: Daughter Chemical Strength Tester Name: Roslyn Smart Delivery Method: - Ewa Days: Prior Verbal Notification: Recipient Understood Notice: Recipient Signature: Med Rec Note Co-signed by Attending: Coverage Notice Comment: Reviewer: [id number] Lobo James Notice Issued Date-Time: 08/02/2019 12:10 Notice Type: IM Discharge Notice Notice Delivered To: Family Member Relationship to Patient: Daughter Chemical Strength Tester Name: ROSLYN SMART Delivery Method: HAND - Hand Delivered Ewa Days: Prior Verbal Notification: Recipient Understood Notice: Yes Recipient Signature: Yes Med Rec Note Co-signed by Attending: Coverage Notice Comment: Last DP export: 08/02/19 2:58 p Patient Name: JAZMINE BALLARD Page [phone] at 1611 All edits/amendments must be made on the electronic document DICTATION DATE: 08/02/191609 STAFF INTERPRETER: MARY 08/02/191609 RPT#: [id number] DC DATE:08/02/19 STATUS: DIS IN [facility] [address] [place] [address] END OF REPORT
--- NOTE | 2019-08-02 16:18 | NUR ---
OT NOTE: PT COMPLETED BED MOB TASKS WITH MOD A. PT COMPLETED SIMPLE HYGIENE/GROOMING WITH MIN A. THANK YOU, JEFF ROONEY
== END 2019-08-02 14:17 | DRG 291 ==
LOC: D.ER 15:49 → D.M2 19:36 → D.M3 19:36
PROVIDERS: Family Medicine; Internal Medicine Nephrology; ADMIT Family Medicine; ATTEND Family Medicine
DX: I11.0 Hypertensive heart disease with heart failure (principal); J96.22 Acute and chronic respiratory failure with hypercapnia; J44.1 Chronic obstructive pulmonary disease with (acute) exacerbation; Z68.41 Body mass index [BMI] 40.0-44.9, adult; I50.33 Acute on chronic diastolic (congestive) heart failure; I07.1 Rheumatic tricuspid insufficiency; I27.20 Pulmonary hypertension, unspecified; D69.6 Thrombocytopenia, unspecified; D53.9 Nutritional anemia, unspecified; E87.6 Hypokalemia; E83.42 Hypomagnesemia; I25.10 Atherosclerotic heart disease of native coronary artery without angina pectoris; E11.9 Type 2 diabetes mellitus without complications; E66.01 Morbid (severe) obesity due to excess calories; Z91.81 History of falling; F41.9 Anxiety disorder, unspecified

== ENCOUNTER 2019-08-02 13:51 | Inpatient (IN) | payer MEDICARE ==
[~2019-08-02] VITALS: Ht 165.1 cm; Wt 106.6 kg
[2019-08-02 15:26] VITALS: BP 138/72; BMI 39.1
--- NOTE | 2019-08-02 16:02 | NUR ---
PATIENT ADMITTED TO REHAB FROM ACUTE FLOOR. DR. HAY IS PATIENT PCP. DME AT HOME O2, NEBULIZER ([employer]) WALKER, WHEELCHAIR,CANE AND BEDSIDE COMMODE. PATIENT LIVES WITH HER DAUGHTER AND SON N LAW AND WILL DISCHARGE BACK WITH HER FAMILY. WILL CONTINUE TO FOLLOW WITH PATIENT.
[2019-08-02 16:42] LABS: APPEARANCE CLEAR (CLEAR); BILIRUBIN NEGATIVE (NEGATIVE); COLOR DK YELLOW (YELLOW); GLUCOSE NEGATIVE (NEGATIVE); KETONE NEGATIVE (NEGATIVE); NITRITE NEGATIVE (NEGATIVE); PROTEIN 1+ mg/dL (NEGATIVE); SPECIFIC GRAVITY 1.025 (1.005-1.020); UROBILINOGEN NORMAL (NORMAL)
[2019-08-02 16:43] LABS: BACTERIA MODERATE /hpf (NEGATIVE); EPITHELIAL CELLS 0-5 /hpf (0-5); MUCUS <1+ /lpf (NONE SEEN); RED CELLS - URINE >50 /hpf (0-5); WHITE CELLS - URINE 0-5 /hpf (NEGATIVE)
--- NOTE | 2019-08-02 16:45 | NUR ---
RESTING QUIETLY IN BED. F/C DRAINING CLOUDY, DARK URINE. WEARING OXYGEN 2LNC. DENIES NEEDS. CALL LIGHT IN REACH
[2019-08-02 19:00] VITALS: BP 141/69
--- NOTE | 2019-08-02 19:09 | NUR ---
GREETED PATIENT AND INTRODUCED MYSELF HER NURSE. PATIENT IS LAYING IN BED RESTING AT THIS TIME. O2 AT 2L IN USE VIA NC. RESPIRATIONS EVEN. NO S/S OF DISTRESS. DENIES ANY FURTHER NEEDS AT THIS TIME. CALL LIGHT IN REACH.
--- NOTE | 2019-08-02 23:23 | NUR ---
PT. RESTING QUIETLY WITH EYES CLOSED. RESPIRATIONS EVEN. NO S/S OF DISTRESS. O2 AT 2L IN USE VIA NC. RESPIRATIONS EVEN. NO S/S OF DISTRESS. CALL LIGHT IN REACH.
[2019-08-03 06:09] LABS: BASOPHILS 0.3 % (0-2); EOSINOPHILS 4.3 % (0-7); HEMATOCRIT 44.7 % (36.0-48.0); HEMOGLOBIN 13.3 g/dL (12-16); IMMATURE GRANULOCYTES 0.2 % (0-5); LYMPHOCYTES 36.5 % (15-50); MCHC 29.8 g/dL (31.0-37.0); MCV 100.7 fL (80.0-100.0); MEAN PLATELET VOLUME 11.3 fL (7.4-10.4); MONOCYTES 9.8 % (2-11); NEUTROPHILS 48.9 % (40-80); PLATELET COUNT 145 10x3/uL (130-400); RBC 4.44 10x6/uL (4.00-5.40); RDW 13.3 % (11.5-14.5); WBC 6.2 10x3/uL (4.8-10.8)
[2019-08-03 06:28] LABS: ANION GAP 4.3 mmol/L (8-16); CALCIUM 9.2 mg/dL (8.5-10.1); CREATININE - SERUM 0.8 mg/dL (0.6-1.3); POTASSIUM - SERUM 4.1 mmol/L (3.5-5.1)
[2019-08-03 06:36] LABS: CARBON DIOXIDE 40.8 mmol/L (21.0-32.0)
--- NOTE | 2019-08-03 06:37 | NUR ---
WES FROM LAB CALLED CRITICAL CO2 40.8
--- NOTE | 2019-08-03 07:27 | NUR ---
ALERT AND OREINTED. RESTING WO DISTRESS. RESP EVEN AND UNLABORED. CL IN REACH.
[2019-08-03 07:48] VITALS: BP 122/62
--- NOTE | 2019-08-03 10:38 | NUR ---
SHOWER TO BE DONE TODAY PER OT.
--- NOTE | 2019-08-03 12:08 | NUR ---
PARTICIPATED IN THERAPY THIS AM. IN ROOM FOR LUNCH AT THIS TIME. CL IN REACH.
[2019-08-03 13:50] VITALS: Ht 165.1 cm; Wt 106.6 kg
--- NOTE | 2019-08-03 15:32 | NUR ---
NO CHANGE IN ASSESSMENT. RESTING WO DISTRESS. RESP EVEN AND UNLABORED. CL IN REACH.
--- NOTE | 2019-08-03 15:50 | NUR ---
CARE TEAM MEETING: PATIENT IS NEW TO UNIT AND WILL BE RA AT NEXT MEETING. WILL CONTINUE TO FOLLOW WITH PATIENT
--- NOTE | 2019-08-03 20:00 | NUR ---
GREETED PATIENT AND INTRODUCED MYSELF HER NURSE. PATIENT IS LAYING IN BED RESTING. DENIES ANY FURTHER NEEDS AT THIS TIME. CALL LIGHT IN REACH.
--- NOTE | 2019-08-03 20:06 | NUR ---
GREETED PATIENT AND INTRODUCED MYSELF HER NURSE. PATIENT IS LAYING IN BED WATCHING TV AT THIS TIME. RESPIRATIONS EVEN. NO S/S OF DISTRESS. O2 AT 2L VIA NC. CALL LIGHT IN REACH.
[2019-08-03 21:32] VITALS: BP 100/64
--- NOTE | 2019-08-04 04:31 | NUR ---
PT. RESTING QUIETLY WITH EYES CLOSED. RESPIRATIONS EVEN. NO S/S OF DISTRESS. O2 AT 2L IN USE VIA NC. CALL LIGHT IN REACH.
--- NOTE | 2019-08-04 08:00 | NUR ---
PATIENT SITTING UP IN BED TO EAT BREAKFAST. PATIENT HAS TREMORS. NEEDED HELP OPENING CARTAINS. CALL LIGHT WITHIN REACH. VOICES NO NEEDS. WILL CONTINUE WITH PLAN OF CARE
[2019-08-04 08:34] VITALS: BP 149/78
--- NOTE | 2019-08-04 13:54 | NUR ---
PATIENT IN REHAB ROOM. WORKING WITH PHYSICAL THERAPIST
--- NOTE | 2019-08-04 20:00 | NUR ---
PATIENT RECEIVED SITTING UP IN BED WATCHING TV. ASSESSMENT & VITAL SIGNS DONE. NO C/O PAIN OR DISTRESS. BED LOW. ALARM ON. CALL LIGHT WITHIN REACH. WILL CONTINUE TO MONITOR.
[2019-08-04 21:12] VITALS: BP 151/65
--- NOTE | 2019-08-05 02:13 | NUR ---
I have reviewed this patient and I concur with the Shift Assessment completed by the Licensed Practical Nurse today this shift.
--- NOTE | 2019-08-05 02:45 | NUR ---
PATIENT EYES CLOSED. RESPIRATIONS 18 & EVEN. BED LOW. CALL LIGHT WITHIN REACH. WILL CONTINUE TO MONITOR.
[2019-08-05 08:00] VITALS: BP 137/65
[2019-08-05 08:41] LABS: BASOPHILS 0.2 % (0-2); EOSINOPHILS 4.8 % (0-7); HEMATOCRIT 40.1 % (36.0-48.0); HEMOGLOBIN 11.9 g/dL (12-16); LYMPHOCYTES 24.4 % (15-50); MCH 29.8 pg (26.0-34.0); MCHC 29.7 g/dL (31.0-37.0); MCV 100.5 fL (80.0-100.0); MEAN PLATELET VOLUME 11.2 fL (7.4-10.4); MONOCYTES 10.4 % (2-11); NEUTROPHILS 60.2 % (40-80); PLATELET COUNT 157 10x3/uL (130-400); RBC 3.99 10x6/uL (4.00-5.40); RDW 13.3 % (11.5-14.5); WBC 5.9 10x3/uL (4.8-10.8)
[2019-08-05 08:48] LABS: CALC OSMOLALITY 284 mosm/kg (275-300); CHLORIDE - SERUM 101 mmol/L (98-107); CREATININE - SERUM 0.7 mg/dL (0.6-1.3); GLUCOSE 105 mg/dL (74-106); POTASSIUM - SERUM 3.6 mmol/L (3.5-5.1); SODIUM 142 mmol/L (136-145); UREA NITROGEN 19 mg/dL (7-18); eGFR NON AFRICAN AMERICAN 86 mL/min (90-120)
[2019-08-05 08:55] LABS: CARBON DIOXIDE 41.7 mmol/L (21.0-32.0)
--- NOTE | 2019-08-05 17:53 | NUR ---
SITTING UP IN BED FOR SUPPER. F/C DRAINING CLOUDY URINE. APPETITE FAIR. IS WEAK. SEVERE TREMORS NOTED TO HEAD AND BOTH HANDS. FAMILY VISITING. CALL LIGHT IN REACH
--- NOTE | 2019-08-05 19:30 | NUR ---
PT IS RESTING IN BED WITH EYES OPEN. ALERT AND ORIENTED X 3. DENIES ACUTE PAIN OR DISCOMFORT AT THIS TIME. NO NEEDS VOICED. 2 FAMILY MEMBERS ARE IN ROOM VISITING AT THIS TIME. THOMPSON CATH IS PATENT AND DRAINING TO A GRAVITY BAG. SR'S ARE UP X 2 IN BED. CALL LIGHT AND BEDSIDE TABLE ARE WITHIN EASY REACH.
--- NOTE | 2019-08-05 23:03 | NUR ---
RESTING QUIETLY IN BED WITH EYES CLOSED. RESPS ARE EVEN AND UNLABORED. NO ACUTE DISTRESS NOTED.
--- NOTE | 2019-08-06 02:16 | NUR ---
I have reviewed this patient and I concur with the Shift Assessment completed by the Licensed Practical Nurse today this shift.
--- NOTE | 2019-08-06 04:21 | NUR ---
RESTING IN BED WITH EYES CLOSED.
[2019-08-06 08:00] VITALS: BP 126/56
--- NOTE | 2019-08-06 10:51 | NUR ---
SITTING UP IN WC IN ROOM. HAS BEEN UP WORKING WITH THERAPY. IS VERY WEAK AND IS A MAX ASST TO TRANSFER. TREMORS STILL NOTED TO HEAD AND BUE. F/C PATENT WITH CLOUDY LOOKING URINE. CALL LIGHT IN REACH
--- NOTE | 2019-08-06 16:03 | NUR ---
LAYING IN BED WATCHING TV. F/C DRAINING CLOUDY URINE. DENIES NEEDS. CALL LIGHT IN REACH
--- NOTE | 2019-08-06 19:08 | NUR ---
PT IS RESTING IN BED WATCHING TV. ALERT AND ORIENTED X 3. DENIES ACUTE PAIN OR DISCOMFORT AT THIS TIME. NO NEEDS VOICED. THOMPSON CATH IS PATENT AND DRAINING TO A GRAVITY BAG. SR'S ARE UP X 2 IN BED. CALL LIGHT AND BEDSIDE TABLE ARE WITHIN EASY REACH.
[2019-08-06 19:15] VITALS: BP 128/75
--- NOTE | 2019-08-06 21:44 | NUR ---
PT IS RESTING QUIETLY IN BED WITH EYES CLOSED. RESPS ARE EVEN AND UNLABORED. NO ACUTE DISTRESS NOTED.
--- NOTE | 2019-08-06 22:33 | NUR ---
I have reviewed this patient and I concur with the Shift Assessment completed by the Licensed Practical Nurse today this shift.
--- NOTE | 2019-08-07 04:34 | NUR ---
QUIET HOURS. PT LYING IN BED EYES CLOSED RESTING QUIETLY. RR EVEN AND UNLABORED. CL IN REACH
[2019-08-07 07:46] VITALS: BP 142/75
--- NOTE | 2019-08-07 13:47 | NUR ---
RESTING QUIETLY IN BED. EYES CLOSED. TV ON. RESP EFFORT NON LABORED. OXYGEN IN USE AT 2LNC. CALL LIGHT IN REACH
--- NOTE | 2019-08-07 19:12 | NUR ---
PT IS RESTING IN BED WITH EYES OPEN. ALERT AND ORIENTED X 3. DENIES ACUTE PAIN OR DISCOMFORT AT THIS TIME. NO NEEDS VOICED. THOMPSON CATH IS PATENT AND DRAINING TO A GRAVITY BAG. SR'S ARE UP X 2 IN BED. CALL LIGHT AND BEDSIDE TABLE ARE WITHIN EASY REACH.
[2019-08-07 20:00] VITALS: BP 131/79
--- NOTE | 2019-08-07 21:31 | NUR ---
PT IS RESTING QUIETLY IN BED WITH EYES CLOSED. RESPS ARE EVEN AND UNLABORED. NO ACUTE DISTRESS NOTED.
--- NOTE | 2019-08-08 00:50 | NUR ---
I have reviewed this patient and I concur with the Shift Assessment completed by the Licensed Practical Nurse today this shift.
--- NOTE | 2019-08-08 03:43 | NUR ---
QUIET HOURS. PT LYING IN BED EYES CLOSED RESTING QUIETLY. HOB 30 DEGREES. RR EVEN AND UNLABORED. F/C PATENT FREE OF KINKS. CL IN REACH.
--- NOTE | 2019-08-08 05:39 | NUR ---
PT REFUSED ALL AM LABS TODAY.
[2019-08-08 06:46] LABS: CALC OSMOLALITY 290 mosm/kg (275-300); CALCIUM 8.9 mg/dL (8.5-10.1); CHLORIDE - SERUM 101 mmol/L (98-107); CREATININE - SERUM 0.6 mg/dL (0.6-1.3); GLUCOSE 90 mg/dL (74-106); POTASSIUM - SERUM 3.8 mmol/L (3.5-5.1); SODIUM 145 mmol/L (136-145); UREA NITROGEN 18 mg/dL (7-18); eGFR NON AFRICAN AMERICAN > 90 mL/min (90-120)
[2019-08-08 06:48] LABS: BASOPHILS 0.5 % (0-2); EOSINOPHILS 4.8 % (0-7); HEMATOCRIT 40.9 % (36.0-48.0); HEMOGLOBIN 11.8 g/dL (12-16); IMMATURE GRANULOCYTES 0.5 % (0-5); LYMPHOCYTES 32.8 % (15-50); MCH 29.4 pg (26.0-34.0); MCHC 28.9 g/dL (31.0-37.0); MCV 101.7 fL (80.0-100.0); MONOCYTES 10.7 % (2-11); NEUTROPHILS 50.7 % (40-80); PLATELET COUNT 160 10x3/uL (130-400); RBC 4.02 10x6/uL (4.00-5.40); RDW 13.3 % (11.5-14.5); WBC 4.4 10x3/uL (4.8-10.8)
[2019-08-08 06:50] LABS: CARBON DIOXIDE 42.3 mmol/L (21.0-32.0)
[2019-08-08 07:54] VITALS: BP 136/69
--- NOTE | 2019-08-08 10:01 | RHP ---
PATIENT: JAZMINE BALLARD MEDICAL RECORD: [id number] ACCOUNT: [id number] LOCATION:[facility]1117 : 43 ADMISSION DATE: 08/02/19 REHABILITATION HISTORY AND PHYSICAL EXAMINATION POST ADMISSION PHYSICIAN EXAMINATION POST ADMISSION PHYSICAL EXAM AND HISTORY AND PHYSICAL DATE OF ADMISSION: 08/02/2019 ADMITTING DIAGNOSIS: Acute exacerbation of chronic obstructive pulmonary disease. HISTORY OF PRESENT ILLNESS: The patient is a 74-year-old female patient, who has got a history of diabetes, hypothyroidism, congestive heart failure and has an ejection fraction of approximately 40% to 45%. She has had coronary artery disease in the past with remote stenting, awz-IC-dyrktya elevation CT, pulmonary hypertension, chronic hypoxic respiratory failure, obesity, partially torn ACL, and degenerative changes in her knee. He presented to the ED on the date of admission with complaints of a fall earlier that week. She had not been able to ambulate since that fall. She had a thoracic and lumbar pain radiating to both of her legs. She had been receiving both PT and OT. She had a CT of her lumbar and thoracic spine that showed no acute findings other than the degenerative disc disease and severe L5-S1 changes that showed some neural foraminal narrowing. She is currently on telemetry. She is on electrolyte protocol, supplemental O2, acute pain, Dodson catheter placement, deconditioned, debility, impaired mobility, gait disturbance, high fall risk, and self-care deficits. These are all barriers to her discharge home. She was living at home with her , who has . She was independent with her ADLs and mobility with use of rolling walker. She is currently set up for max assist for ADLs, mod-to-max assist for mobility. She and her family would like for her to return home at her prior level of functioning or better. Her daughter is main caregiver. Comorbidities include chronic hypoxic and hypercapnic respiratory failure, COPD, pulmonary hypertension, coronary artery disease with stent placement. She has had a fwc-BF-jvdglfx elevation CT in the past, asthma, tremors, anxiety, hypothyroidism, chronic idiopathic thrombocytopenia. She has got a history of diabetes, anxiety, obesity, hypothyroidism. PAST MEDICAL HISTORY: Significant for diabetes, thyroid problems, CHF, coronary artery disease, atrial fib paroxysmal, asthma, chronic back pain, menopause, depression. PAST SURGICAL HISTORY: Includes gallbladder surgery, angioplasty with stents. ALLERGIES: IODINE, ASPIRIN, AND TYLENOL. CURRENT MEDICATIONS: Include meloxicam 15 mg daily, citalopram 40 mg daily, vitamin D 2000 units daily. She is on a low-resistant sliding scale of insulin, Synthroid 100 mcg daily. She is on a glucose replacement protocol. She is on Unisom at bedtime p.r.n. insomnia, Betapace 80 mg b.i.d., metformin 500 mg b.i.d., primidone 250 t.i.d., BuSpar 15 mg t.i.d., Stanton 10/325 one tab every 6-8 hours as needed, and Klonopin 0.5 mg t.i.d. p.r.n. HABITS: No alcohol or tobacco use. HISTORY AND PHYSICAL [id number] BALLARDJAZMINE FAYE FAMILY HISTORY: Noncontributory. SOCIAL HISTORY: The patient hopes to return back home with her family and get back to her prior level of functioning. REVIEW OF SYSTEMS: GENERAL: Does complain of weakness and fatigue. HEENT: Denies cold, cough, or congestion. CARDIOVASCULAR: Denies any chest pain. PHYSICAL EXAMINATION: VITAL SIGNS: Stable, afebrile. GENERAL: A morbidly obese female, in no distress upon exam. HEENT: Normocephalic and atraumatic. Mucosa moist. NECK: Supple. No lymphadenopathy. LUNGS: Clear in the upper argueta. She does have decreased breath sounds in the bases probably secondary to body habitus. HEART: Regular rate and rhythm at this time. She does have a holosystolic murmur. ABDOMEN: Soft, benign, nondistended. Positive bowel sounds times 4. EXTREMITIES: No clubbing, cyanosis or edema. NEUROLOGIC: She does have noted 2/5 muscular strength in the proximal muscles of her leg. She has 4/5 in her hands. LABORATORY DATA: Her admit white count 6.2, H&H of 13 and 44, and platelet count is noted to be 145. Her sodium is 141, potassium 4.1, BUN and creatinine of 17 and 0.8. Blood sugar is noted to be 92. Her CO2 is elevated at 40.8. Her admit UA did show some red blood cells and some bacteria, but she was negative for leukocyte esterase and nitrites. ASSESSMENT: This is a 74-year-old female patient admitted to the rehab with a working diagnosis of myopathy secondary to acute exacerbation of chronic obstructive pulmonary disease. The patient has potential to make improvement. We will institute the following multidisciplinary therapies including, but not limited to, physical, occupational, respiratory, speech, nutritional services, prosthetics, and orthotics. Given her complex medical condition and risks for more complications, rehabilitation services cannot be provided at a lower level of care such as a skilled nurse facility. PLAN: 1. Admit to [facility] for an inpatient therapy to include the following disciplines; A. Physical therapy to improve gait, all transfer skills, and bed mobility to modified independent level. B. Occupational therapy to a modified independent level. C. Case management to assist with discharge planning and placement options. D. Nutrition to assist with nutritional needs. E. Rehabilitation nursing to assist in monitoring the patient's underlying medical conditions and to assist with any type of bowel or bladder management. 2. The patient's current medications and medical care will be continued. 3. The patient will be placed on standard fall precautions. 4. The patient's estimated length of stay is approximately 7-10 days. 5. We will watch her electrolytes closely and also watch her CO2 level. TRANSINT:[id number] Voice Confirmation ID: [id number] DOCUMENT ID: [id number] HISTORY AND PHYSICAL [id number] JAZMINE BALLARD notes whether there has been none or any medical/functional change since admission: - No change since prescreen. YVONNE attests patient continues to be appropriate for IRF: - Continues to be appropriate. VELASQUEZ HAY MD at 1001 CC: [id number] DICTATION DATE: 08/03/19 0834 JET HANDLER: 08/03/19 1044 ADM IN [facility] [address] [place] [address]
--- NOTE | 2019-08-08 14:42 | NUR ---
Nutrition Follow-up: Diet: Diabetic + Blane BID PO intake: ~61% average x last 9 meals recorded. Reports that appetite has improved. States that she does not like the Blane, request that I remove it from meal trays. States that a nurse came and looked at the sore on her bottom and told her that it was "getting better." Per most recent nursing skin assessment pt does not have a PU anymore. Last BM: 08/04/19. Wt: 235# (08/03/19), no new wt Significant meds: dulcolax, SSI, metformin. Labs reviewed Continue current diet. I will D/C Blane per pt's request. Consider increase in bowel regimen if pt does not have a BM today. RD Following.
--- NOTE | 2019-08-08 19:15 | NUR ---
PT IS RESTING IN BED WITH EYES OPEN. ALERT AND ORIENTED X 3. DENIES ACUTE PAIN OR DISCOMFORT AT THIS TIME. PT STATES SHE HAS NOT VOIDED SINCE HER [facility] CATH WAS DC'D TODAY. SHE DOES NOT REMEMBER WHAT TIME IT WAS TAKEN OUT. SR'S ARE UP X 3 IN BED. CALL LIGHT AND BEDSIDE TABLE ARE WITHIN EASY REACH.
[2019-08-08 21:12] VITALS: BP 129/66
--- NOTE | 2019-08-08 22:00 | NUR ---
PT IS RESTING IN BED WITH EYES OPEN. NO ACUTE DISTRESS NOTED.
--- NOTE | 2019-08-09 00:17 | NUR ---
RESTING IN BED WITH EYES CLOSED.
--- NOTE | 2019-08-09 00:57 | NUR ---
QUIET HOURS. PT LYING IN BED EYES CLOSED RESTING. HOB 30 DEGREES. RR EVEN AND UNLABORED. CL IN REACH
--- NOTE | 2019-08-09 03:34 | NUR ---
I have reviewed this patient and I concur with the Shift Assessment completed by the Licensed Practical Nurse today this shift.
--- NOTE | 2019-08-09 04:35 | NUR ---
PT IS RESTING QUIETLY IN BED WITH EYES CLOSED. RESPS ARE EVEN AND UNLABORED. NO ACUTE NOTED.
--- NOTE | 2019-08-09 04:47 | NUR ---
PT INC. OF A LARGE AMOUNT OF URINE. NATIVIDAD CARE AND LINEN CHANGE DONE. CALMOSEPTINE APPLIED TO BUTTOCKS.
--- NOTE | 2019-08-09 08:00 | NUR ---
SHIFT ASSMT COMPLETED.
[2019-08-09 08:27] VITALS: BP 143/74
--- NOTE | 2019-08-09 19:30 | NUR ---
PT PLACED ON BEDPAN WITH NO RESULT. FAMILY IN ROOM. DENIES NEEDS AT THIS TIME. BED IN LOW SIDE RAILS X2. A/O X4. SOME CONFUSION AT TIMES. RESP EVEN AND UNLABORED. O2 ON 2L VIA NC. LUNGS CLEAR. BOWEL ACTIVE X4. WILL CONTINUE TO MONITOR.
--- NOTE | 2019-08-09 21:45 | NUR ---
PT PLACED ON BEDPAN AGAIN WITH NO RESULT. ASSISTED PT UP IN WHEELCHAIR AND ON TOILET. PT URINATED AND PLACED BACK IN BED. CL IN REACH. WCTM
--- NOTE | 2019-08-10 02:05 | NUR ---
PT RESTING QUIETLY. CL IN REACH. NO DISTRESS NOTED. WCTM
--- NOTE | 2019-08-10 04:00 | NUR ---
PT CALLED FOR BEDPAN. URINE INCONINENCE ALREADY NOTED. ENTIRE LINEN CHANGED. PT CLEANED AND PULLED UP IN BED. CL IN REACH. DENIES FURTHER NEEDS. WCTM
[2019-08-10 06:25] LABS: BASOPHILS 0.2 % (0-2); EOSINOPHILS 5.2 % (0-7); HEMATOCRIT 40.5 % (36.0-48.0); HEMOGLOBIN 11.8 g/dL (12-16); IMMATURE GRANULOCYTES 0.2 % (0-5); LYMPHOCYTES 32.1 % (15-50); MCH 29.6 pg (26.0-34.0); MCHC 29.1 g/dL (31.0-37.0); MCV 101.8 fL (80.0-100.0); MONOCYTES 10.4 % (2-11); NEUTROPHILS 51.9 % (40-80); PLATELET COUNT 141 10x3/uL (130-400); RBC 3.98 10x6/uL (4.00-5.40); RDW 13.4 % (11.5-14.5); WBC 4.1 10x3/uL (4.8-10.8)
[2019-08-10 06:32] LABS: CALC OSMOLALITY 289 mosm/kg (275-300); CALCIUM 8.6 mg/dL (8.5-10.1); CHLORIDE - SERUM 102 mmol/L (98-107); CREATININE - SERUM 0.7 mg/dL (0.6-1.3); GLUCOSE 101 mg/dL (74-106); POTASSIUM - SERUM 3.7 mmol/L (3.5-5.1); SODIUM 145 mmol/L (136-145); UREA NITROGEN 16 mg/dL (7-18); eGFR NON AFRICAN AMERICAN 86 mL/min (90-120)
[2019-08-10 06:34] LABS: CARBON DIOXIDE 42.6 mmol/L (21.0-32.0)
--- NOTE | 2019-08-10 08:00 | NUR ---
SHIFT ASSMT COMPLETED.
[2019-08-10 08:34] VITALS: BP 135/69
--- NOTE | 2019-08-10 12:00 | NUR ---
SITTING UP FOR LUNCH.REQUIRES TO BE FED AT THIS TIME D/T TREMORS.
--- NOTE | 2019-08-10 16:00 | NUR ---
RESTING QUIETLY IN BED.
--- NOTE | 2019-08-10 19:30 | NUR ---
PT SITTING UP IN BED WATCHING TV. VISITOR IN ROOM. CL IN REACH. DENIES NEEDS AT THIS TIME. BED IN LOW SIDE RAILS X2. RESP EVEN AND UNLABORED. A/O X4. LUNGS CLEAR. BOWEL ACTIVE X4. O2 ON 2L VIA NC. WILL CONTINUE TO MONITOR.
[2019-08-10 21:12] VITALS: BP 150/69
--- NOTE | 2019-08-10 21:45 | NUR ---
ASSISTED TO AND FROM BATROOM. BACK IN BED. KAMRYNTM
--- NOTE | 2019-08-10 23:29 | NUR ---
QUIET HOURS. PT LYING IN BED SUPINE EYES CLOSED RESTING COMFORTABLY. HOB 30 DEGREES. RR EVEN AND UNLABORED. CONTINUES ON 2L VIA NC. CL IN REACH. BED ALARM ON.
--- NOTE | 2019-08-11 02:32 | NUR ---
I have reviewed this patient and I concur with the Shift Assessment completed by the Licensed Practical Nurse today this shift.
--- NOTE | 2019-08-11 02:35 | NUR ---
PT RESTING QUIETLY. CL IN REACH. NO DISTRESS NOTED. WCTM
--- NOTE | 2019-08-11 06:28 | NUR ---
ASSISTED TO AND FROM BATHROOM. PT ASSISTED BACK IN BED. CL IN REACH. DENIES FURTHER NEEDS. PT HAD LOOSE BM. WILL CONTINUE TO MONITOR.
[2019-08-11 08:00] VITALS: BP 157/76
--- NOTE | 2019-08-11 08:21 | NUR ---
PT EATING BREAKFAST, DENIES NEEDS. WCTM.
--- NOTE | 2019-08-11 18:09 | NUR ---
PT EATING DINNER, DENIES NEEDS. WCTM.
--- NOTE | 2019-08-11 20:15 | NUR ---
ASSISTED TO AND FROM [facility]. PT BACK IN BED. CL IN REACH. DENIES FURTHER NEEDS. BED IN LOW SIDE RAILS X2. A/O X4. LUNGS CLEAR. ON O2 AT 2L VIA NC. RESP EVEN AND UNLABORED. WILL CONTINUE TO MONITOR.
[2019-08-11 20:34] VITALS: BP 153/63
--- NOTE | 2019-08-12 00:53 | NUR ---
QUIET HOURS. PT LYING IN BED SUPINE HOB 30 DEGREES EYES CLOSED RESTING QUIETLY. RR EVEN AND UNLABORED. CONTINUES ON 2L VIA NC. CL IN REACH
--- NOTE | 2019-08-12 02:00 | NUR ---
PT COMPLAINING OF BACK PAIN. ASSISTED PT ON LEFT SIDE. PAIN PILL GIVEN PER NOV. WILL CONTINUE TO MONITOR.
--- NOTE | 2019-08-12 04:01 | NUR ---
I have reviewed this patient and I concur with the Shift Assessment completed by the Licensed Practical Nurse today this shift.
--- NOTE | 2019-08-12 06:00 | NUR ---
ASSISTED TO AND FROM BATHROOM. PT BACK IN BED. CL IN REACH. DENIES FURTHER NEEDS. WCTM
[2019-08-12 07:32] VITALS: BP 130/63
[2019-08-12 07:48] LABS: BASOPHILS 0.2 % (0-2); EOSINOPHILS 3.5 % (0-7); HEMATOCRIT 41.2 % (36.0-48.0); HEMOGLOBIN 12.1 g/dL (12-16); IMMATURE GRANULOCYTES 0.2 % (0-5); LYMPHOCYTES 33.7 % (15-50); MCH 29.7 pg (26.0-34.0); MCHC 29.4 g/dL (31.0-37.0); MEAN PLATELET VOLUME 11.1 fL (7.4-10.4); MONOCYTES 10.1 % (2-11); NEUTROPHILS 52.3 % (40-80); PLATELET COUNT 128 10x3/uL (130-400); RBC 4.08 10x6/uL (4.00-5.40); RDW 13.3 % (11.5-14.5)
[2019-08-12 08:15] LABS: ANION GAP 5.9 mmol/L (8-16); CALCIUM 8.7 mg/dL (8.5-10.1); CARBON DIOXIDE 38.6 mmol/L (21.0-32.0); CREATININE - SERUM 0.8 mg/dL (0.6-1.3); POTASSIUM - SERUM 3.5 mmol/L (3.5-5.1)
--- NOTE | 2019-08-12 08:45 | NUR ---
PT AM MEDS ADMINISTERED. PT DENIES NEEDS. WCTM.
--- NOTE | 2019-08-12 12:13 | NUR ---
NUTRITION F/U PT TOLERATING DIABETIC DIET. REQUIRES FEEDING ASSIST AT TIMES DUE TO TREMORS. 50% AVERAGE INTAKE RECENT MEALS. RECENT BM RECORDED. WILL CONTINUE TO PROVIDE DIET, MONITOR PO INTAKE. RD FOLLOWING
--- NOTE | 2019-08-12 16:14 | NUR ---
PATIENT DOING WELL IN THERAPY TENATIVE DISCHARGE DATE IS 08/17/19. SHE WILL RETURN TO HER HOME WITH FAMILY.WILL CONTINUE TO FOLLOW WITH PATIENT.
--- NOTE | 2019-08-12 18:07 | NUR ---
PT EATING DINNER, DENIES NEEDS. WCTM.
[2019-08-12 19:27] VITALS: BP 136/61
--- NOTE | 2019-08-12 19:49 | NUR ---
PT ASSITED OUT OT THE BATHROOM WITH MAX ASSIST. VOIDED WITHOUT DIFFICULTY. VSS. NO FURTHER NEEDS VOICED. SR'S ARE UP X 2 IN BED. CALL LIGHT AND BEDSIDE TABLE ARE WITHIN EASY REACH.
--- NOTE | 2019-08-12 21:41 | NUR ---
PT ASSISTED TO THE BATHROOM WITH MAX ASSIST FOR TRANSFERS. PT UNABLOE TO VOID. SHE STATES SHE HAS BEEN HAVING DIFFICULTY OFF AND ON SINCE HER CATHETER WAS DC'D THIS WEEK. PT ASSISTED BACK TO BED AT THIS TIME. WILL CONTINUE TO MONITOR.
--- NOTE | 2019-08-13 01:43 | NUR ---
I have reviewed this patient and I concur with the Shift Assessment completed by the Licensed Practical Nurse today this shift.
--- NOTE | 2019-08-13 02:48 | NUR ---
PT ASSISTED UP TO BATHROOM. WHEN SHE SAT ON THE TOILET, IT MOVED ABOUT 3 INCHES TOWARDS THE WALL. PT UNABLE TO VOID. PT MOVED TO ROOM 1119B FOR SAFETY REASONS. PT ASSISTED TO BED WITH MAX ASSIST, AND THEN SHE STATED SHE WANTED A BEDPAN TO PEE IN, BUT THAT SHE COULD NOT PEE IN A FORMAN. PT AGAIN ASSISTED UP TO TOILET. INSTRUCTED TO PULL CORD WHEN FINISHED.
--- NOTE | 2019-08-13 04:37 | NUR ---
PT ASSISTED TO THE BATHROOM WITH MAX ASSIST. HER KNEES BUCKLED TWICE DURING TRANSFERS, BUT SHE DID NOT FALL. PT WAS UNABLE TO VOID. WILL USE BEDPAN THE REST OF THIS SHIFT.
--- NOTE | 2019-08-13 08:03 | NUR ---
PT SITTING UP IN WHEELCHAIR EATING BREAKFAST, DENIES NEEDS. WCTM.
[2019-08-13 08:05] VITALS: BP 154/57
--- NOTE | 2019-08-13 19:32 | NUR ---
PATIENT RECEIVED SITTING UP IN BED WATCHING TV. ASSESSMENT & VITAL SIGNS DONE. BED LOW. ALARM ON. CALL LIGHT WITHIN REACH. WILL CONTINUE TO MONITOR.
[2019-08-13 20:06] VITALS: BP 170/74
--- NOTE | 2019-08-13 22:00 | NUR ---
PT UNABLE TO VOID ON BEDPAN. BLADDER SCAN SHOWS. 38CC'S. PT ENCOURAGED TO DRINK MRE FLUIDS.
--- NOTE | 2019-08-14 03:06 | NUR ---
I have reviewed this patient and I concur with the Shift Assessment completed by the Licensed Practical Nurse today this shift.
--- NOTE | 2019-08-14 08:35 | NUR ---
PT AM MEDS ADMINISTERED. PT IZA GAUTHIER. KAITY.
--- NOTE | 2019-08-14 17:30 | NUR ---
PT SITTING UP EATING DINNER, DENIES NEEDS. WCTM.
--- NOTE | 2019-08-14 19:28 | NUR ---
PT IS RESTING IN BED WITH EYES OPEN. ALERT AND ORIENTED X 3. DENIES ACUTE PAIN OR DISCOMFORT AT THIS TIME. NO NEEDS VOICED. O2 IS ON @ 2LPM PER NC. NO SOB NOTED. SR'S ARE UP X 2 IN BED. CALL LIGHT AND BEDSIDE TABLE ARE WITHIN EASY REACH.
[2019-08-14 20:00] VITALS: BP 131/74
--- NOTE | 2019-08-14 20:30 | NUR ---
PT ASSISTED UP TO TOILET. MEASURING CONTAINER PLACED IN TOILET. PT DID NOT VOID AT ALL. ASSISTED BACK TO BED WITH MAXIMUM ASSISTANCE.
--- NOTE | 2019-08-14 21:46 | NUR ---
PT RESTING IN BED WITH EYES OPEN. NO NEEDS VOICED.
--- NOTE | 2019-08-14 23:13 | NUR ---
I have reviewed this patient and I concur with the Shift Assessment completed by the Licensed Practical Nurse today this shift.
--- NOTE | 2019-08-15 00:51 | NUR ---
RESTING IN BED WITH EYES CLOSED.
--- NOTE | 2019-08-15 04:41 | NUR ---
RESTING IN BED WITH EYES CLOSED. NO DISTRESS NOTED.
[2019-08-15 06:26] LABS: BASOPHILS 0.4 % (0-2); EOSINOPHILS 5.3 % (0-7); HEMATOCRIT 42.9 % (36.0-48.0); HEMOGLOBIN 12.6 g/dL (12-16); IMMATURE GRANULOCYTES 0.2 % (0-5); LYMPHOCYTES 33.2 % (15-50); MCH 29.9 pg (26.0-34.0); MCHC 29.4 g/dL (31.0-37.0); MCV 101.7 fL (80.0-100.0); MEAN PLATELET VOLUME 11.5 fL (7.4-10.4); MONOCYTES 8.3 % (2-11); NEUTROPHILS 52.6 % (40-80); PLATELET COUNT 151 10x3/uL (130-400); RBC 4.22 10x6/uL (4.00-5.40); RDW 13.7 % (11.5-14.5); WBC 5.5 10x3/uL (4.8-10.8)
[2019-08-15 06:37] LABS: ANION GAP 4.9 mmol/L (8-16); CALCIUM 8.6 mg/dL (8.5-10.1); CREATININE - SERUM 0.8 mg/dL (0.6-1.3); POTASSIUM - SERUM 3.3 mmol/L (3.5-5.1)
[2019-08-15 07:24] LABS: CARBON DIOXIDE 41.4 mmol/L (21.0-32.0)
[2019-08-15 07:55] VITALS: BP 158/74
--- NOTE | 2019-08-15 09:12 | NUR ---
PATIENT IS ALERT/ORIENT. IN REHAB ROOM. WORKING WITH PHYSICAL THERAPIST. DENIES ANY PAIN/DISC AT THIS TIME. WILL CONTINUE WITH PLAN OF CARE
--- NOTE | 2019-08-15 09:28 | NUR ---
PATIENT IN REHAB ROOM. WORKING WITH PHYSICAL THERAPIST. PRN PAIN MEDICATION GIVEN PER PATIENT REQUEST. WILL CONTINUE WITH PLAN OF CARE
--- NOTE | 2019-08-15 10:05 | NUR ---
I have reviewed this patient and I concur with the Shift Assessment completed by the Licensed Practical Nurse today this shift.
--- NOTE | 2019-08-15 13:38 | NUR ---
PATIENT HELPED BACK TO BED AFTER THERAPY AND LUNCH. MAX ASST OF TWO FROM WHEELCHAIR ONTO BED
--- NOTE | 2019-08-15 13:43 | NUR ---
SCHEDULED 1200 HUMALOG INSULIN GIVEN DUE TO PATIENT SITTING IN REHAB ROOM EATTING PIZZA
--- NOTE | 2019-08-15 19:39 | NUR ---
PT IS RESTING IN BED WITH EYES OPEN. ALERT AND ORIENTED X 3. DENIES ACUTE DISCOMFORT AT THIS TIME. NO NEEDS VOICED. TEXTILE SCREEN PRINTER ASSISTING HER WITH MENU AT THIS TIME. O2 IS ON @ 2LPM PER NC. NO SOB NOTED. ENOCH FEET ELEVATED UP ON PILLOWS TO PREVENT PRESSURE AREAS. SR'S ARE UP X 2 IN BED. CALL LIGHT AND BEDSIDE TABLE ARE WITHIN EASY REACH.
[2019-08-15 21:06] VITALS: BP 163/66
--- NOTE | 2019-08-15 22:00 | NUR ---
PT RESTING QUIETLY IN BED WITH EYES CLOSED. NO ACUTE DISTRESS NOTED.
--- NOTE | 2019-08-15 22:22 | NUR ---
I have reviewed this patient and I concur with the Shift Assessment completed by the Licensed Practical Nurse today this shift.
--- NOTE | 2019-08-16 01:56 | NUR ---
PT RESTING IN BED WITH EYES CLOSED.
[2019-08-16 08:04] VITALS: BP 164/73
--- NOTE | 2019-08-16 08:42 | NUR ---
PT AM MEDS ADMINISTERED. PT DENIES NEEDS. WCTM.
--- NOTE | 2019-08-16 11:47 | NUR ---
SPOKE WITH PATIENT AND DAUGHTER AND DUE TO PATIENT UNABLE TO CRE FOR HER SELF , THEY WOULD LIKE A REFERRL TO BE MADE TO [facility]. PATIENT IS STILL UNABLE TO AMBULATE DUE TO HER TREMORS AND HER BALANCE. REFERRAL HAS BEEN FAXED . WILL CONTINUE TO FOLLOW WITH PATIENT
--- NOTE | 2019-08-16 13:38 | NUR ---
Nutrition Follow-up: Diet: Diabetic, chopped meats PO intake: ~76% average x last 9 meals; reports that appetite is "okay." Reports that current diet order/food consistency is appropriate for her. Last BM = 08/16/19 x 2. Wt: 235# (08/03/19), no new wt Significant meds: SSI, metformin, linzess. Noted K 3.3. MD managing lytes per MD note. Noted "reddened area to coccyx" per nursing skin assessment. Continue current nutrition regimen. New wt please. RD following.
--- NOTE | 2019-08-16 19:55 | NUR ---
PATIENT RECEIVED SITTING UP IN BED. FAMILY AT BEDSIDE. ASSESMENT & VITAL SIGNS DONE. NO C/O PAIN OR DISTRESS. BED LOW. ALARM ON. CALL LIGHT WITHIN REACH. WILL [id number] TO MONITOR.
[2019-08-16 21:29] VITALS: BP 149/66
--- NOTE | 2019-08-17 00:28 | NUR ---
PT. RESTING QUIETLY WITH EYES CLOSED. RESPIRATIONS EVEN. NO S/S OF DISTRESS. SR UP X 2. BED IN LOWEST POSITION. CALL LIGHT IN REACH.
--- NOTE | 2019-08-17 00:42 | NUR ---
I have reviewed this patient and I concur with the Shift Assessment completed by the Licensed Practical Nurse today this shift.
--- NOTE | 2019-08-17 02:53 | NUR ---
PATIENT EYES CLOSED. RESPIRATIONS 18 & EVEN. BED LOW. CALL LIGHT WITHIN REACH. ALARM ON. WILL CONTINUE TO MONITOR.
[2019-08-17 08:18] VITALS: BP 161/68
--- NOTE | 2019-08-17 08:33 | NUR ---
PT ASSISTED [facility] BREAKFAST. PT DENIES FURTHUR NEEDS. WCTM.
--- NOTE | 2019-08-17 10:18 | NUR ---
PATIENT DISCHARGING TO [facility] AND WILL TRANSPORT THERE VIA FACILITY [facility]AN. NO HOME HEALTH OR DME NEEDED AT THIS TIME. AN APPOINTMENT WITH DR. HAY WILL BE MADE AT TIME OF DISCHARGE FROM FACILITY. PATIENT CHOICE FORM , HANDOUT GIVEN WITH COMPARE DATA REVIEWED WITH PATIENT AND DAUGHTER AND THEY BOTH VOICED UNDERSTANDING. IMFM FORM SIGNED, COPY GIVEN TO PATIENT AND FILED IN CHART. DISCHARGE INSTRUCTIONS FAXED TO PCP, SNF AND REVIEWED WITH PATIENT AND DAUGHTER.
--- NOTE | 2019-08-17 13:13 | NUR ---
DISCHARGE INSTRUCTIONS REV'D WITH FAMILY AND PTReagan BLOUNT FROM [facility] HERE TO DO ADMISSIONS PAPERWORK. WCTM.
--- NOTE | 2019-08-17 17:04 | NUR ---
PT DISCHARGED WITH [facility] AT THIS TIME.
== END 2019-08-17 17:04 | DRG 91 ==
LOC: D.REHAB 13:51
PROVIDERS: ADMIT Emergency Medicine; ATTEND Emergency Medicine
DX: G72.89 Other specified myopathies (principal); J96.22 Acute and chronic respiratory failure with hypercapnia; J96.21 Acute and chronic respiratory failure with hypoxia; J18.9 Pneumonia, unspecified organism; I50.23 Acute on chronic systolic (congestive) heart failure; J44.1 Chronic obstructive pulmonary disease with (acute) exacerbation; D69.3 Immune thrombocytopenic purpura; I27.20 Pulmonary hypertension, unspecified; I25.10 Atherosclerotic heart disease of native coronary artery without angina pectoris; J45.909 Unspecified asthma, uncomplicated; E03.9 Hypothyroidism, unspecified; E11.9 Type 2 diabetes mellitus without complications; E55.9 Vitamin D deficiency, unspecified; F41.9 Anxiety disorder, unspecified; Y95 Nosocomial condition; G47.33 Obstructive sleep apnea (adult) (pediatric); I11.0 Hypertensive heart disease with heart failure; M51.37 Other intervertebral disc degeneration, lumbosacral region

== ENCOUNTER 2019-08-24 11:19 | Inpatient (IN) | payer MEDICARE ==
[~2019-08-24] VITALS: Ht 165.1 cm; Wt 127.3 kg
--- NOTE | ~2019-08-24 | HEMODYNAMI ---
PATIENT:JAZMINE BALLARD MEDICAL RECORD: [id number] : 43 [facility] [id number] ADMISSION DATE: 08/24/19 Generatedon:08/26/201910:27 Patient name: JAZMINE BALLARD Patient #: [id number] SSN: [id number] : 1945 Date of study: 08/26/2019 Page: Of Hemodynamic Procedure Report Patient Data Patient Demographics Procedure consent was obtained First Name: JAZMINE Gender: Female Last Name: ELIO : 1945 [facility] Initial: ANIBAL Age: 74 year(s) Patient #: [id number] Race: Unknown SSN: [id number] Additional ID: [id number] Contact details Address: [address] [place] [address] State: [place] City: [place] Zip code: [address] Past Medical History Allergies Allergen Reaction Date Comments Reported Other allergy 08/26/2019 TYLENOL, IODINE, ASA Admission Admission Data Admission Date: 08/24/2019 Admission Time: 13:12 Room #: D.2127 Lab Results Lab Result Date: 08/26/2019 Lab Result Time: 0:00 Biochemistry Name Units Result Min Max BUN mg/dl 19 --(----)*- 7 18 Creatinine mg/dl 0.8 --(-*--)-- 0.6 1.3 eGFR ml/min 73.60351 *-(----)-- 90 120 NONAFRICAN CBC Name Units Result Min Max Hematocrit % 38.7 *-(----)-- 42 54 Hemoglobin g/dl 11.8 *-(----)-- 13.5 17.5 Procedure Procedure Types Cath Procedure Diagnostic Procedure [facility] w/Coronaries FFR/IVUS FFR Initial PCI Procedure Coronary Stent Coronary Stent Initial Procedure Description Procedure Date Procedure Date: 08/26/2019 Procedure Start Time: 10:01 Procedure End Time: 10:22 Procedure Staff Name Function Moises Dawkins MD Performing Physician Rashard MARTINEZ Monitor Mariela Camara RT Scrub Mindi Durand RN Nurse Lynda Rebolledo RN Nurse Procedure Data Cath Procedure Fluoroscopy Diagnostic fluoroscopy Total fluoroscopy Time: 4.2 time: 4.2 min min Diagnostic fluoroscopy Total fluoroscopy dose: dose: 1077 mGy 1077 mGy Contrast Material Contrast Material Type Amount (ml) Isovue 370 111 Entry Location Entry Primary Successful Side Size Upsize Upsize Entry Closure Succes sful Closure Location (Fr) 1 (Fr) 2 (Fr) Remarks Device Remarks Femoral Right 5 Fr 6 Fr Exoseal artery Short Diagnostic catheters Device Type Used For End Catheter Placement MULTIPACK Pigtail 5 Fr LV Angiography catheter MULTIPACK JL 4.0 5Fr Left Coronary catheter Angiography MULTIPACK 3DRC 5Fr Right Coronary catheter Angiography Procedure Complications No complications Procedure Medications Medication Administration Route Dosage Oxygen etCO2 Nasal cannula 2 l/min Lidocaine 2% added to field 20 Heparin Flush Bag added to field 2 bags (1000units/500ml NS) 0.9% NaCl I.V. 100 ml/hr Versed I.V. 1 mg Fentanyl I.V. 50 mcg Versed I.V. 1 mg Fentanyl I.V. 50 mcg Versed I.V. 1 mg Cardizem (125mg/125ml NS) Heparin Bolus I.V. 4000 units Versed I.V. 1 mg Hemodynamics Rest HGB: 11.8 (g/dl) Heart Rate: 65 (bpm) Snapshots Pre Cath Intra NCS Post Cath Vital Signs Time Heart Resp SPO2 etCO2 NIBP (mmHg) Rhythm Pain Sedation Rate (ipm) (%) (mmHg) Status Level (bpm) 9:43:33 63 19 93 0 168/87(108) NSR 0 (11) 10(A) , No pain 9:48:05 60 23 98 52 165/89(124) NSR 0 (11) 10(A) , No pain 9:52:42 58 18 99 40.8 157/81(112) NSR 0 (11) 10(A) , No pain 9:57:16 64 18 94 0 133/61(98) NSR 0 (11) 10(A) , No pain 10:01:42 58 14 99 19.6 152/84(108) NSR 0 (11) 10(A) , No pain 10:06:17 55 14 100 1.5 154/75(125) NSR 0 (11) 10(A) , No pain 10:10:47 56 12 99 0 153/77(119) NSR 0 (11) 10(A) , No pain 10:15:17 55 12 99 9.8 136/75(103) NSR 0 (11) 10(A) , No pain 10:19:46 58 22 100 34 147/77(132) NSR 0 (11) 10(A) , No pain Medications Time Medication Route Dose Verified Delivered Reason Notes Effectiveness by by 9:05:17 Cardizem mg/hr- Moises Buffie discontinued (125mg/125ml NS) discontinued Juancho Rebolledo RN drip fr om [facility] floor on arrival to . 9:51:41 Oxygen etCO2 2 l/min Moises Howell used for Nasal Juancho Rebolledo RN procedure cannula 9:53:53 Lidocaine 2% added 20ml vial Moises De Leon for local to Juancho Dawkins MD anesthetic field 9:53:59 Heparin Flush added 2 bags Moises De Leon used for Bag to Juancho Dawkins MD procedure (1000units/500ml field NS) 9:54:06 0.9% NaCl I.V. 100 ml/hr Moises Howell Per physician Juancho Rebolledo RN 9:54:15 Versed I.V. 1 mg Moises Howell for sedation Juancho Rebolledo RN 9:54:21 Fentanyl I.V. 50 mcg Moises Birchie for sedation Juancho Rebolledo RN 10:00:28 Versed I.V. 1 mg Moises Howell for sedation Juancho Rebolledo RN 10:00:34 Fentanyl I.V. 50 mcg Moises Howell for sedation Juancho Rebolledo RN 10:06:00 Versed I.V. 1 mg Moises Birchie for sedation Juancho Rebolledo RN 10:09:51 Heparin Bolus I.V. 4000 units Moises Howell for verified Juancho Rebolledo RN anticoagulation with dr dawikns 10:15:13 Versed I.V. 1 mg Moises Birchie for sedation Juancho Rebolledo RN Procedure Log Time Note 9:05:17 Cardizem (125mg/125ml NS) mg/hr- discontinued was administered by Lynda Rebolledo RN; ; discontinued drip from [facility] floor on arrival to . Verbal order read back and verified. 9:13:50 Informed consent obtained and on chart 9:14:00 Procedure Status Urgent Heart Cath (IP). 9:14:01 Time tracking: Regular hours (M-F 7:00 - 5:00) 9:14:05 Plan of Care:Hemodynamics will remain stable., Cardiac rhythm will remain stable., Comfort level will be maintained., Respiratory function will remain adequate., Patient/ family verbilizes understanding of procedure., Procedure tolerated without complication., Recovers from procedure without complications.. 9:14:11 H&P Date Dictated: 08/26/2019 New H&P dictated by physician.. 9:18:17 Patient allergic to Other allergyTYLENOL, IODINE, ASA 9:19:04 Lab Result : BUN 19 mg/dl 9:19:04 Lab Result : Creatinine 0.8 mg/dl 9:19:04 Lab Result : eGFR NONAFRICAN 73.60019 ml/min 9:19:04 Lab Result : Hemoglobin 11.8 g/dl 9:19:04 Lab Result : Hematocrit 38.7 % 9:24:41 Rashard MARTINEZ(R) sent for patient. Start room use. 9:41:58 Patient received from PCU to CCL 1 Alert and oriented. Tansferred to table in Supine position. 9:41:59 Warm blankets applied, and sam hugger turned on for patient comfort. 9:42:00 Correct patient and procedure confirmed by team. 9:42:01 ECG and BP/O2 sat monitors applied to patient. 9:42:01 Vital chart was started 9:42:02 Baseline sample Acquired. 9:42:06 Rhythm: sinus rhythm 9:42:07 Full Disclosure recording started 9:42:08 Pre-procedure instructions explained to patient. 9:42:09 Pre-op teaching completed and patient verbalized understanding. 9:42:13 Family in waiting room. 9:42:16 Patient NPO since Midnight. 9:42:21 Is the patient allergic to Iodine/contrast media? Yes. 9:42:25 Was the patient premedicated? Yes 9:42:29 Is patient on blood thinner?Yes 9:42:38 ACC The patient was administered the following blood thiners within the last 24 hours: ACCPlavix 9:44:29 Patient diabetic? Yes. 9:44:31 If diabetic: On Metformin? Yes 9:44:33 ----Pre-sedation anethsthesia assessment.---- 9:44:37 Previous problem with sedation/anesthesia? No ? 9:44:38 Snore? Yes 9:44:39 Sleep apnea? No 9:44:42 Deviated septum? No 9:44:43 Opens mouth fully? Yes 9:44:44 Sticks out tongue? Yes 9:44:47 Airway obstruction? No ? 9:44:52 Dentures? Yes IN TIGHT 9:46:51 Pre procedure: right dorsailis pedis pulse 1+ Palpable, but thready & weak; easily obliterated 9:46:55 Patient pain scale 0/10 ?. 9:47:01 IV patent on arrival in left antecubital with 0.9% NaCl at [facility]. 9:47:05 Lab results completed and on chart. 9:47:10 Risk of Mortality: ? 9:50:59 Risk of Mortality: 0.1 9:51:05 Risk of blood transfusion: 1.9 9:51:11 Risk of MATILDE: 1.5 9:51:15 Right groin area was prepped with chlora-prep and draped in sterile fashion 9:51:17 Alarms reviewed by R. N. 9:51:17 Sharps counted by scrub and verified by R.N. 9:51:20 Physician arrived 9:51:21 --------ALL STOP TIME OUT------ 9:51:21 Final Timeout: patient, procedure, and site verified with staff and physician. All members of the team are in agreement. 9:51:23 Right groin site verified by team. 9:51:27 Fire Safety Assessment: A--An alcohol-based skin anteseptic being used preoperatively., C--Open oxygen or nitrous oxide is being used., D--An ESU, laser, or fiber-optic light is being used. 9:51:31 Physical assessment completed. ASA score P 3 - A patient with severe systemic disease as per Moises Dawkins MD. 9:51:41 Oxygen 2 l/min etCO2 Nasal cannula was administered by Lynda Rebolledo RN; used for procedure; Verbal order read back and verified. 9:51:56 2) 60-89 Mildly reduced kidney function, and other findings (as for stage 1) point to kidney disease. 9:52:08 Maximum allowable contrast dose (3.7 X eGFR X 0.75)205.35 ml. 9:52:13 Sedation plan: IV Moderate Sedation Medication:Versed, Fentanyl 9:53:53 Lidocaine 2% 20ml vial added to field was administered by Moises Dawkins MD; for local anesthetic; Verbal order read back and verified. 9:53:59 Heparin Flush Bag (1000units/500ml NS) 2 bags added to field was administered by Moises Dawkins MD; used for procedure; Verbal order read back and verified. 9:54:06 0.9% NaCl 100 ml/hr I.V. was administered by Lynda Rebolledo RN; Per physician; Verbal order read back and verified. 9:54:15 Versed 1 mg I.V. was administered by Lynda Rebolledo RN; for sedation; Verbal order read back and verified. 9:54:21 Fentanyl 50 mcg I.V. was administered by Lynda Rebolledo RN; for sedation; Verbal order read back and verified. 9:58:25 Use device set Femoral Dx 9:58:26 ACIST Syringe (20478) opened to sterile field. 9:58:27 Bag Decanter (2002S) opened to sterile field. 9:58:27 Medline Cath Pack ([id number]) opened to sterile field. 9:58:28 ACIST Hand Control (15996) opened to sterile field. 9:58:30 ACIST Manifold (20726) opened to sterile field. 9:58:30 DIAGNOSTIC Multipack 5Fr catheter set (HU6938) opened to sterile field. 9:58:31 Tegaderm 4 x 4 (1626W) opened to sterile field. 9:58:33 SHEATH 5FR Homer (IJW673) opened to sterile field. 9:58:34 EMERALD Guide Wire (338-367) opened to sterile field. 9:58:38 Zero performed for pressure channel P1 10:00:28 Versed 1 mg I.V. was administered by Lynda Rebolledo RN; for sedation; Verbal order read back and verified. 10:00:34 Fentanyl 50 mcg I.V. was administered by Lynda Rebolledo RN; for sedation; Verbal order read back and verified. 10:01:00 Procedure started. 10:01:09 Local anesthetic to right femoral artery with Lidocaine 2% by Moises Dawkins MD.INITIAL ACCESS ONLY 10:01:17 A 5 Fr sheath was inserted into the Right Femoral artery 10:02:41 A MULTIPACK Pigtail 5 Fr catheter was advanced over the wire and used for LV Angiography. 10:02:45 LV angiography performed. 10:02:47 LV gram done using PEREZ 10:02:54 EF : 40 % 10:02:59 Catheter removed. 10:03:05 A MULTIPACK JL 4.0 5Fr catheter was advanced over the wire and used for Left Coronary Angiography. 10:03:10 LCA angiography performed. 10:04:28 Catheter removed. 10:04:35 A MULTIPACK 3DRC 5Fr catheter was advanced over the wire and used for Right Coronary Angiography. 10:04:54 RCA angiography performed. 10:05:14 Catheter removed. 10:05:32 INFLATOR Merit BasixCompak (UE2851) opened to sterile field. 10:05:47 Reliance Verrata Plus pressure wire (12066M) opened to sterile field. 10:05:48 SHEATH 6FR Homer (DWW046) opened to sterile field. 10:06:00 Versed 1 mg I.V. was administered by Lynda Rebolledo RN; for sedation; Verbal order read back and verified. 10:06:47 ACC Pre-intervention HEMA Flow is 3. 10:06:59 Pre PCI Site: [place] mCirc has ?% stenosis. 10:07:17 Sheath upsized to a 6 Fr Short. 10:07:31 GUIDE 6FR XBLAD 3.5 catheter ([id number]) opened to sterile field. 10:07:32 6 Fr XBLAD 3.5 guide catheter was inserted over the wire 10:08:42 FFR/IVUS 10:08:44 FFR/IFR wire advanced. 10:08:55 Baseline FFR 0. 10:09:01 Wire advanced across lesion. 10:09:51 Heparin Bolus 4000 units I.V. was administered by Lynda Rebolledo RN; for anticoagulation; verified with dr dawkins Verbal order read back and verified. 10:10:52 mCirc lesion measured at 0.93 with IFR 10:11:06 Wire removed. 10:11:06 Guide catheter removed. 10:11:59 6 Fr AR 2 guide catheter was inserted over the wire 10:12:02 GUIDE 6FR AR 2.0 catheter (PI3ZL09) opened to sterile field. 10:12:11 CHOICE PT Extra Support 182cm wire ([id number]) opened to sterile field. 10:12:18 CPTES wire advanced. 10:13:04 Pre PCI Site: [place] mRCA has 95% stenosis. 10:13:18 ACC Pre-intervention HEMA Flow is 3. 10:13:41 Procedure type changed to Cath procedure, Diagnostic procedure, LHC, LHC w/Coronaries, FFR/IVUS, FFR Initial, PCI procedure, Coronary Stent, Coronary Stent Initial 10:14:31 Inflate balloon Inflation number: 2 A EUPHORA 2.5 x 12 Balloon ([id number]) was prepped and advanced across the Mid RCA , then inflated to 9 KEVIN for 0:08 (min:sec) . 10:14:51 Balloon removed over the wire. 10:15:13 Versed 1 mg I.V. was administered by Lynda Rebolledo RN; for sedation; Verbal order read back and verified. 10:17:30 Place stent Inflation Number: 1 A MIRTA RX 2.5 x 08 stent ([id number]) was prepped and advanced across the R PDA . The stent was deployed at 9 KEVIN for 0:10 (min:sec) . 10:18:07 Inflation number: 1 The stent balloon was then re-inflated across the Mid RCA to 9 KEVIN for 0:11 (min:sec) . 10:18:33 EXOSEAL 6Fr (EX600) opened to sterile field. 10:19:18 Stent catheter was removed intact over wire. 10:19:19 Wire removed. 10:19:19 Guide catheter removed. 10:19:28 Sheath removed intact; hemostasis achieved with Exoseal to the Right Femoral artery. 10:19:29 Procedure ended.(Physican Out) 10:19:41 Fluoroscopy time 04.20 minutes. 10:19:48 Fluoroscopy dose: 1077 mGy 10:19:48 Flurop Dose total: 1077 10:19:56 Dose Area Product 05202 mGy/cm. 10:20:00 Contrast amount:Isovue 370 111ml. 10:20:05 Maximum allowable dose exceeded? No. 10:20:06 Sharps counted by scrub and verified by R.N. 10:20:08 Insertion/operative site no bleeding no hematoma. 10:20:11 Post-op/insertion site Right Femoral artery dressed using a 4 x 4 and Tegaderm. 10:20:14 Post right femoral artery:stable 10:20:43 Post Procedure Pulses reassessed and unchanged 10:20:45 Post procedure: right dorsailis pedis pulse 1+ Palpable, but thready & weak; easily obliterated. 10:20:48 Post-procedure physical assessment completed. ASA score P 2 - A patient with mild systemic disease as per Moises Dawkins MD. 10:20:53 Post procedure rhythm: unchanged. 10:21:17 ACT drawn and resulted at 320 seconds. (normal therapeutic range 180-240 seconds). 10:21:23 Procedure and supply charges have been captured, reviewed, submitted and are correct. 10:21:27 Procedure Complication : No complications 10:21:30 Vital chart was stopped 10:21:45 [facility] Findings: MVD- PCI performed (see procedure note) 10:21:52 Operative report dictated upon procedure completion. 10:21:53 See physician's report for complete and final results. 10:21:56 Report given to PCU. 10:21:59 Patient transfered to PCU with Bed. 10:22:05 Procedure ended. 10:22:05 Full Disclosure recording stopped 10:22:16 End room use (Document Last) Intervention Summary Intervention Notes Time ActionType Lesion and Equipment Used Action# Pressure Duration Attributes 10:14:31 Inflate Mid RCA EUPHORA 2.5 x 2 9 00:08 balloon 12 Balloon ([id number]) 10:17:30 Place stent R PDA MIRTA RX 2.5 x 1 9 00:10 08 stent ([id number]) 10:18:07 Reinflate Mid RCA MIRTA RX 2.5 x 1 9 00:11 stent 08 stent balloon ([id number]) Device Usage Item Name Manufacture Quantity Catalog Number Hospital Part Current Minimal Lot# / Charge Number Stock Stock Serial# Code ACIST Syringe Acist 1 49719 820631 487586 543760 20 (94488) Yummy [employer] Inc Bag Decanter Microtek 1 113200 03490 303495 5 () [employer] Inc. Medline Cath Medline 1 [id number] 060268 12102 626493 5 Pack ([id number]) ACIST Hand Acist 1 08025 775176 662523 967959 5 Control Medical (16342) Systems Inc ACIST Manifold Acist 1 68614 368586 130262 821930 5 (79637) Medical Systems Inc DIAGNOSTIC Cardinal 1 HI6096 555240 92095 826789 30 Multipack 5Fr Health catheter set (PT8366) Tegaderm 4 x 4 3M 1 1626W 503597 767287 439333 5 (1626W) SHEATH 5FR Terumo 1 DQT422 914864 734697 308751 5 Homer (WCF047) EMERALD Guide Cardinal 1 502-455 419215 282755 031508 5 Wire (502-455) Health MULTIPACK Cardinal 1 456666 5 Pigtail 5 Fr Health catheter MULTIPACK JL Cardinal 1 833718 5 4.0 5Fr Health catheter MULTIPACK 3DRC Cardinal 1 432029 5 5Fr catheter Health INFLATOR Merit Merit 1 XS6608 892384 129123 677982 15 SmartPay SolutionsohTellFi Medical (LA2032) Reliance Reliance 1 87872I 314511 070991870 312563 5 [id number] Verrata Plus 572779 pressure wire (12850C) SHEATH 6FR Terumo 1 ZMX430 093545 594382 336580 40 Homer (JRB489) GUIDE 6FR Cardinal 1 96831286 206022 976174 068040 10 XBLAD 3.5 Health catheter (69292546) GUIDE 6FR AR Medtronic 1 WU4PP59 886333 31785 054744 1 2.0 catheter (PF6HG30) CHOICE PT Ragley 1 [id number] 583083 099821 801826 5 Extra Support Scientific 182cm wire ([id number]) EUPHORA 2.5 x Medtronic 1 [id number] 592505 770386 212561 5 [id number] 12 Balloon ([id number]) MIRTA RX 2.5 x Medtronic 1 [id number] 856646 7690262 496622 5 [id number] 08 stent ([id number]) EXOSEAL 6Fr Cardinal 1 EX600 959405 260237 258606 10 (EX600) Health Signature Audit [place] Stage Time Signature Unsigned Intra-Procedure 08/26/2019 Lynda Rebolledo RN 10:26:04 AM Intra-Procedure 08/26/2019 Rashard MARTINEZ(R) 10:26:41 AM Intra-Procedure 08/26/2019 Moises Dawkins 10:27:04 AM [facility] [address] [id number]
--- NOTE | 2019-08-24 11:58 | NUR ---
PT HAS A HX OF A-FIB, HR CURRENTLY 130 AND IRREGULAR. EDP AWARE.
[2019-08-24 12:01] LABS: BASOPHILS 0.1 % (0-2); HEMATOCRIT 45.7 % (36.0-48.0); HEMOGLOBIN 13.4 g/dL (12-16); IMMATURE GRANULOCYTES 0.4 % (0-5); LYMPHOCYTES 23.9 % (15-50); MCH 30.3 pg (26.0-34.0); MCHC 29.3 g/dL (31.0-37.0); MCV 103.4 fL (80.0-100.0); MEAN PLATELET VOLUME 11.3 fL (7.4-10.4); MONOCYTES 8.4 % (2-11); NEUTROPHILS 66.2 % (40-80); PLATELET COUNT 129 10x3/uL (130-400); RBC 4.42 10x6/uL (4.00-5.40); RDW 14.4 % (11.5-14.5); WBC 7.1 10x3/uL (4.8-10.8)
[2019-08-24 12:24] LABS: APPEARANCE CLEAR (CLEAR); BILIRUBIN NEGATIVE (NEGATIVE); COLOR DK YELLOW (YELLOW); GLUCOSE NEGATIVE (NEGATIVE); KETONE MODERATE mg/dL (NEGATIVE); NITRITE NEGATIVE (NEGATIVE); PROTEIN 2+ mg/dL (NEGATIVE); UROBILINOGEN NORMAL (NORMAL)
[2019-08-24 12:24] LABS: ALBUMIN 2.8 g/dL (3.4-5.0); ALKALINE PHOSPHATASE 94 U/L (46-116); ALT (SGPT) 89 U/L (10-68); BILIRUBIN - TOTAL 0.53 mg/dL (0.2-1.3); CALCIUM 8.6 mg/dL (8.5-10.1); CHLORIDE - SERUM 96 mmol/L (98-107); CREATINE KINASE 38 UL (21-215); CREATININE - SERUM 0.9 mg/dL (0.6-1.3); POTASSIUM - SERUM 3.8 mmol/L (3.5-5.1); PROTEIN - SERUM 6.8 g/dL (6.4-8.2); SODIUM 141 mmol/L (136-145); TROPONIN-I 0.034 ng/mL (0.000-0.060); UREA NITROGEN 14 mg/dL (7-18); eGFR NON AFRICAN AMERICAN 65 mL/min (90-120)
[2019-08-24 12:25] LABS: RED CELLS - URINE 0-5 /hpf (0-5)
[2019-08-24 12:26] LABS: APTT 30.3 SECONDS (22.8-39.4); INR 1.26 (0.85-1.17); PROTIME 15.2 SECONDS (11.6-15.0)
[2019-08-24 12:26] LABS: BACTERIA FEW /hpf (NEGATIVE); HYALINE CAST OCC /lpf (NONE SEEN); MUCUS <1+ /lpf (NONE SEEN); YEAST <1+ /hpf (NONE SEEN)
[2019-08-24 12:27] LABS: CALC OSMOLALITY 285 mosm/kg (275-300); GLUCOSE 176 mg/dL (74-106)
[2019-08-24 12:28] LABS: CARBON DIOXIDE 41.3 mmol/L (21.0-32.0)
--- NOTE | 2019-08-24 12:32 | NUR ---
PUREWICK EXTERNAL FEMALE CATHETER IN PLACE AND CONNECTED TO SUCTION TUBING.
[2019-08-24 12:46] VITALS: BP 107/86
[2019-08-24 13:01] VITALS: BP 126/97
[2019-08-24 13:21] LABS: CREATINE KINASE 36 UL (21-215)
--- NOTE | 2019-08-24 13:26 | MORECARE ---
CASE MANAGEMENT DISCHARGE SUMMARY PATIENT: JAZMINE BALLARD UNIT: [id number] ADM DATE: 08/24/19 AGE: 74 : 44 SEX: F ROOM/BED: D.9907 AUTHOR: KAYLEY PEARCE PHYSICIAN: REFERRING PHYSICIAN: HU NAVARRETE MD DATE OF SERVICE: 08/24/19 Discharge Plan Patient Name: JAZMINE BALLARD Facility: [facility]:[place] : 1945 Planned Disposition: Anticipated Discharge Date: Discharge Date: Expected LOS: Initial Reviewer: [email or web address] Initial Review Date: 08/24/2019 Generated: 08/24/19 2:25 pm Patient Name: JAZMINE BALLARD Page [phone] at 1326 All edits/amendments must be made on the electronic document DICTATION DATE: 08/24/19 1325 METHODS EXAMINER: MARY 08/24/19 1325 RPT#: [id number] DC DATE: STATUS: ADM IN [facility] [address] [place] [address] END OF REPORT
[2019-08-24 13:28] LABS: TROPONIN-I 0.064 ng/mL (0.000-0.060)
--- NOTE | 2019-08-24 13:39 | MORECARE ---
CASE MANAGEMENT DISCHARGE SUMMARY PATIENT: JAZMINE BALLARD UNIT: [id number] ADM DATE: 08/24/19 AGE: 74 : 44 SEX: F ROOM/BED: D.5564 AUTHOR: RAMSES,DOC PHYSICIAN: REFERRING PHYSICIAN: HU NAVARRETE MD DATE OF SERVICE: 08/24/19 Discharge Plan Patient Name: JAZMINE BALLARD Facility: [facility]:[place] : 1945 Planned Disposition: Anticipated Discharge Date: Discharge Date: Expected LOS: Initial Reviewer: [email or web address] Initial Review Date: 08/24/2019 Generated: 08/24/19 2:39 pm Comments DCP- Discharge Planning Updated by [email or web address]: Ary Arellano on 08/24/19 12:[address] CM met with patient to discuss initial discharge planning. Patient is in agreement to proceed with assessment with her daughter, Kaylin Naylor #[phone] present. Patient is alert/oriented, using C-pap at present. Patient is unable to ambulate, reports frequent falls. Daughter will provide information. Patient lives with her daughter, Roslyn Smart [phone]. Stairs/steps: Ramp. PCP: Dr. Quiñonez. Pharmacy: [facility]. [facility]: [facility] . DME: [facility]: Home O2, Nebulizer, walker, w/c, cane, BSC, hospital bed, estevan lift, scooter, shower chair (does not use d/t falls). Patient gives permission to speak with family members/care givers. Emergency contact: Roslyn Smart #[phone]. Total dependent w/ADL's. CM discussed the availability of HH, Rehab, DME services. Patient was recently discharged from in-patient rehab (08/17) to [facility] and per daughter, family picked her up the next morning due to "problems". Daughter states that "[facility] will be ACCEPTING patient in approximately 14 days." Recently hospitalized 08/02 and discharged from in-patient rehab 08/17 to [facility]/rehab. 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 Transportation at time of discharge: dependent on place of discharge. CM will follow and assist with further discharge plans PRN. Last DP export: 08/24/19 12:26 Patient Name: JAZMINE BALLARD Page [phone] at 1339 All edits/amendments must be made on the electronic document DICTATION DATE: 08/24/191338 DRUPAL WEB DEVELOPER: MARY 08/24/19 133 RPT#: [id number] DC DATE: STATUS: ADM IN [facility] [address] [place] [address] END OF REPORT
--- NOTE | 2019-08-24 14:09 | MORECARE ---
CASE MANAGEMENT DISCHARGE SUMMARY PATIENT: JAZMINE BALLARD UNIT: [id number] ADM DATE: 08/24/19 AGE: 74 : 44 SEX: F ROOM/BED: D.1017 AUTHOR: RAMSES,DOC PHYSICIAN: REFERRING PHYSICIAN: HU NAVARRETE MD DATE OF SERVICE: 08/24/19 Discharge Plan Patient Name: JAZMINE BALLARD Facility: [facility]:[place] : 1945 Planned Disposition: Anticipated Discharge Date: Discharge Date: Expected LOS: Initial Reviewer: [email or web address] Initial Review Date: 08/24/2019 Generated: 08/24/19 3:09 pm DCP- Discharge Planning Updated by [email or web address]: Ary Arellano on 08/24/19 1:[address] CM met with patient to discuss initial discharge planning. Patient is in agreement to proceed with assessment with her daughter, Kaylin Naylor #[phone] present. Patient is alert/oriented, using C-pap at present. Patient is unable to ambulate, reports frequent falls. Daughter will provide information. Patient lives with her daughter, Roslyn Smart #[phone]. Stairs/steps: Ramp. PCP: Dr. Quiñonez. Pharmacy: [facility], patient has been able to obtain all medications. HHS: [facility]. DME: [facility]: Home O2, Nebulizer, walker, w/c, cane, BSC, hospital bed, estevan lift, scooter, shower chair (does not use d/t falls). Patient gives permission to speak with family members/care givers. Emergency contact: Roslyn Smart #[phone]. Total dependent w/ADL's. CM discussed the availability of HH, Rehab, DME services. Patient was recently discharged from in-patient rehab (08/17) to [facility] and per daughter, family picked her up the next morning due to "problems". Daughter states that "[facility] will be ACCEPTING patient in approximately 14 days." Recently hospitalized 08/02 and discharged from in-patient rehab 08/17 to [facility]/reh. 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 Transportation at time of discharge: dependent on place of discharge. CM will follow and assist with further discharge plans PRN. Last DP export: 08/24/19 12:39 Patient Name: JAZMINE BALLARD Page [phone] at 1409 All edits/amendments must be made on the electronic document DICTATION DATE: 08/24/191408 ROTARY DRUM DYER: MARY 08/24/191408 RPT#: [id number] DC DATE: STATUS: ADM IN [facility] [address] [place] [address] END OF REPORT
--- NOTE | 2019-08-24 14:30 | NUR ---
PT TRANSFERED VIA STRECHER TO OUR BED X4 ASSIST. IV NOTED TO LEFT HAND INFUSING CARDIZEM @ 10ML/HR. 20G LEFT UPPER ARM. PT PLACED ON BIPAP. PUREWICK IN PLACE AND SUCTION ATTACHED. DENIES NEEDS OR PAIN AT THIS TIME. RR EVEN AND UNLABORED. PT ORIENTED TO ROOM .FAMILY @ BEDSIDE. REDNESS NOTED TO BOTTOM. BED IN LOWEST POSITION. CALL LIGHT WITHIN REACH. WILL CONTINUE TO MONITOR.
[2019-08-24 15:07] VITALS: BMI 46.6
[2019-08-24 15:23] VITALS: Ht 165.1 cm; Wt 127.3 kg
[2019-08-24] MEDS ORDERED: FUROSEMIDE20 MG PO (16:26)
[2019-08-24] MEDS ORDERED: FUROSEMIDE10 MG/M1 (16:26)
--- NOTE | 2019-08-24 17:08 | MORECARE ---
CASE MANAGEMENT DISCHARGE SUMMARY PATIENT: JAZMINE BALLARD UNIT: [id number] ADM DATE: 08/24/19 AGE: 74 : 44 SEX: F ROOM/BED: D.6638 AUTHOR: RAMSES,DOC PHYSICIAN: REFERRING PHYSICIAN: HU NAVARRETE MD DATE OF SERVICE: 08/24/19 Discharge Plan Patient Name: JAZMINE BALLARD Facility: [facility]:[place] : 1945 Planned Disposition: Anticipated Discharge Date: Discharge Date: Expected LOS: Initial Reviewer: [id number] Initial Review Date: 08/24/2019 Generated: 08/24/19 6:07 pm Comments DCP- Discharge Planning Updated by [email or web address]: Stan Amaya on 08/24/19 4:[address] Patient Name: JAZMINE BALLARD Encounter No: [id number] : 1945 Primary Insurance: MEDICARE A & B Anticipated DC Date: Planned Disposition: External Planned Provider: [facility] DCP follow-up note: CM RECEIVED CALL FROM SONIDO OF [facility], THEY WERE TRYING TO ASSIST PT WITH GETTING INTO [facility] FROM HOME PRIOR TO HOSPITAL ADMISSION. PT REQUIRES RAFAT ASSESSMENT AND THAT HAS NOT BEEN DONE. CM TO SEND REFERRAL TO [facility] AND COMPLETE AND SUBMIT FOR RAFAT SCREENING APPROVAL SOON POSSIBLE. STAN AMAYA,CASE MANAGEMENT Stan Amaya DCP- Discharge Planning Updated by [id number]: Ary Arellano on 08/24/19 1:[address] CM met with patient to discuss initial discharge planning. Patient is in agreement to proceed with assessment with her daughter, Kaylin Naylor #[phone] present. Patient is alert/oriented, using C-pap at present. Patient is unable to ambulate, reports frequent falls. Daughter will provide information. Patient lives with her daughter, Roslyn Smart #[phone]. Stairs/steps: Ramp. PCP: Dr. Quiñonez. Pharmacy: [facility], patient has been able to obtain all medications. HHS: [facility]. DME: [employer]: Home O2, Nebulizer, walker, w/c, cane, BSC, hospital bed, estevan lift, scooter, shower chair (does not use d/t falls). Patient gives permission to speak with family members/care givers. Emergency contact: Roslyn Smart #[phone]. Total dependent w/ADL's. CM discussed the availability of HH, Rehab, DME services. Patient was recently discharged from in-patient rehab (08/17) to [facility] and per daughter, family picked her up the next morning due to "problems". Daughter states that "[facility] will be ACCEPTING patient in approximately 14 days." Recently hospitalized 08/02 and discharged from in-patient rehab 08/17 to [facility]/reh. 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 Transportation at time of discharge: dependent on place of discharge. CM will follow and assist with further discharge plans PRN. Last DP export: 08/24/19 1:09 Patient Name: JAZMINE BALLARD Page [phone] at 1708 All edits/amendments must be made on the electronic document DICTATION DATE: 08/24/191706 MINING DETAIL DRAFTSPERSON: MARY 08/24/191706 RPT#: [id number] DC DATE: STATUS: ADM IN [facility] [address] [place] [address] END OF REPORT
--- NOTE | 2019-08-24 19:50 | NUR ---
PT SITTING UP IN BED ALERT AND ORIENTED X4. PT FAMILY AT BEDSIDE. O2-96% 2L NC. NO S/S OF DISTRESS AT THIS TIME. PT RECIEVED BEDBATH AND FULL LINEN CHANGE. PT HAD BOWEL MOVEMENT. VITALS STABLE AT THIS TIME. BED LOW CALL LIGHT WITHIN REACH. WILL CONTINUE TO MONITOR.
[2019-08-24 20:00] VITALS: BP 132/67
[2019-08-24 20:51] LABS: CREATINE KINASE 44 UL (21-215)
[2019-08-24 20:52] LABS: TROPONIN-I 0.096 ng/mL (0.000-0.060)
--- NOTE | 2019-08-24 22:10 | NUR ---
SPOKE WITH RT SABRA. NO ORDER FOR BIPAP FOR THIS PT. PT CAME TO FLOOR FROM ER WITH BIPAP. WILL LEAVE PT OFF BIPAP AND MONITOR. NO S/S OF DISTRESS AT THIS TIME.
[2019-08-25] VITALS: BP 121/63
--- NOTE | 2019-08-25 00:48 | NUR ---
PT RESTING IN BED WITH EYES CLOSED. PT ON BIPAP AT THIS TIME. RR EVEN AND UNLABORED. FAMILY AT BEDSIDE. RR EVEN AND UNLABORED. WILL CONTINUE TO MONITOR.
--- NOTE | 2019-08-25 02:19 | NUR ---
I have reviewed this patient and I concur with the Shift Assessment completed by the Licensed Practical Nurse today this shift.
[2019-08-25 02:38] LABS: BASOPHILS 0 % (0-2); EOSINOPHILS 0 % (0-7); HEMATOCRIT 41.4 % (36.0-48.0); HEMOGLOBIN 12.3 g/dL (12-16); IMMATURE GRANULOCYTES 0.4 % (0-5); LYMPHOCYTES 20.8 % (15-50); MCH 29.9 pg (26.0-34.0); MCHC 29.7 g/dL (31.0-37.0); MEAN PLATELET VOLUME 10.7 fL (7.4-10.4); MONOCYTES 2.7 % (2-11); NEUTROPHILS 76.1 % (40-80); PLATELET COUNT 136 10x3/uL (130-400); RBC 4.12 10x6/uL (4.00-5.40); RDW 14.1 % (11.5-14.5)
[2019-08-25 02:39] LABS: MCV 100.5 fL (80.0-100.0); WBC 4.8 10x3/uL (4.8-10.8)
[2019-08-25 03:13] LABS: ALBUMIN 2.6 g/dL (3.4-5.0); ALKALINE PHOSPHATASE 78 U/L (46-116); ALT (SGPT) 80 U/L (10-68); BILIRUBIN - TOTAL 0.52 mg/dL (0.2-1.3); CALC OSMOLALITY 289 mosm/kg (275-300); CALCIUM 8.5 mg/dL (8.5-10.1); CHLORIDE - SERUM 97 mmol/L (98-107); CREATINE KINASE 32 UL (21-215); CREATININE - SERUM 0.9 mg/dL (0.6-1.3); GLUCOSE 137 mg/dL (74-106); POTASSIUM - SERUM 4.1 mmol/L (3.5-5.1); PROTEIN - SERUM 6.5 g/dL (6.4-8.2); SODIUM 144 mmol/L (136-145); UREA NITROGEN 14 mg/dL (7-18); eGFR NON AFRICAN AMERICAN 65 mL/min (90-120)
[2019-08-25 03:21] LABS: TROPONIN-I 0.076 ng/mL (0.000-0.060)
[2019-08-25 03:22] LABS: CARBON DIOXIDE 44.7 mmol/L (21.0-32.0)
[2019-08-25 04:00] VITALS: BP 108/72
--- NOTE | 2019-08-25 07:22 | NUR ---
PT AWAKE AND ORIETED, LYING IN BED. STATES SHE IS HOPEFULL THEY'LL RESTART HER HYDROCHODONE TODAY SHE PREFERS IT OVER THE I/V MORPHINE. NO OTHER COMPLAINTS OR CONCERNS AT THIS TIME, ALL QUESTIONS ANSWERED TO THE BEST OF MY ABILITY. DAUGHTER AT BEDSIDE, CL IN REACH, SRX2.
--- NOTE | 2019-08-25 08:05 | NUR ---
ADMINISTERED MORNING MEDICATIONS WITHOUT DIFFICULTY, PT HAS TROUBLE HOLDING BREATHING TX D/T TREMORS, STATES SHE HAD THEM AT HOME BUT THEY BECOME WORSE IN THE HOSPITAL WHETHER D/T STRESS OR STERIODS. PT DENIED BREAKFAST TRAY BECAUSE DAUGHTER BROUGHT HER BREAKFAST. CL IN REACH, SRX2
--- NOTE | 2019-08-25 08:36 | NUR ---
I CONCUR WITH COOKING TEACHER ASSESSMENT OF THIS PATIENT.
[2019-08-25 09:25] VITALS: BP 127/55
[2019-08-25 13:08] VITALS: BP 118/46
--- NOTE | 2019-08-25 14:14 | NUR ---
CLEANED PT FROM URINATION, REMOVED PURE WICK AND THE RATIO OF URINE BEING SUCKED UP TO THAT BEING ON THE PAD WAS GREATER ON THE PAD. PT REQUTESTS A NAP, NOW CLEAN AND DRY. CL IN REACH, SRX2.
[2019-08-25 16:00] VITALS: BP 136/52
--- NOTE | 2019-08-25 16:33 | NUR ---
PT THOUGHT SHE WAS WET, CHANGED HER PADDING, SHE WAS DRY. CURRENTLY DRY AND CLEAN. CL IN REACH, SRX2, DAUGHTER AT BEDSIDE.
--- NOTE | 2019-08-25 18:30 | NUR ---
PT CAHNGED, HAD SOAKED BED IN URINE. CHANGED LINNENS AND PT IS NOW CLEAN AND DRY. DECIDED TO CONTINUE NOT HAVING PUREWICK I DO NOT FEEL IT WAS BENIFICAIL TO THE PT AT THIS TIME. MULTIPLE FAMILY MEMBERS AT BEDSIDE. NOCOMPLAINTS OR CONCERNS, THANKS NURSE/AID NUBIA FOR THE CARE SHE HAS RECIEVED STATING WE'VE BEEN WONDERFUL. ALL QUESTIONS ANSWERED TO THE BEST OF MY ABILITY, DENIES NEED FOR BIPAP AT THIS TIME D/T VISITING. CL IN REACH, SRX2, BED LOW AND LOCKED, BED ALARM ON.
--- NOTE | 2019-08-25 22:41 | NUR ---
RT IN ROOM PUTTING BIPAP ON PT. WILL CONTINUE TO MONITOR.
--- NOTE | 2019-08-25 23:05 | NUR ---
TURNED DOWN CARDIZEM DRIP FROM 10ML/HR TO 5ML/HR. HR-52 ON TELE. WILL CONTINUE TO MONITOR.
[2019-08-26] VITALS (13 sets, daily range): BP systolic 118–150; BP diastolic 58–80
--- NOTE | 2019-08-26 02:44 | NUR ---
I have reviewed this patient and I concur with the Shift Assessment completed by the Licensed Practical Nurse today this shift.
--- NOTE | 2019-08-26 03:57 | NUR ---
PT 24G IV PULLED OUT IN SLEEP. SITE CLEAN NO REDNESS OR SWELLING NOTED. WILL CONTINUE TO MONITOR.
[2019-08-26 05:37] LABS: BASOPHILS 0 % (0-2); EOSINOPHILS 0 % (0-7); HEMATOCRIT 38.7 % (36.0-48.0); HEMOGLOBIN 11.8 g/dL (12-16); IMMATURE GRANULOCYTES 0.3 % (0-5); MCHC 30.5 g/dL (31.0-37.0); MEAN PLATELET VOLUME 10.7 fL (7.4-10.4); MONOCYTES 4.3 % (2-11); NEUTROPHILS 84.4 % (40-80); RBC 3.93 10x6/uL (4.00-5.40)
[2019-08-26 06:00] LABS: ALBUMIN 2.6 g/dL (3.4-5.0); BILIRUBIN - TOTAL 0.38 mg/dL (0.2-1.3); CALCIUM 8.5 mg/dL (8.5-10.1); CREATININE - SERUM 0.8 mg/dL (0.6-1.3); MCV 98.5 fL (80.0-100.0); PLATELET COUNT 167 10x3/uL (130-400); PROTEIN - SERUM 6.2 g/dL (6.4-8.2); WBC 6.7 10x3/uL (4.8-10.8)
[2019-08-26 06:09] LABS: ANION GAP 5.5 mmol/L (8-16); POTASSIUM - SERUM 3.2 mmol/L (3.5-5.1)
[2019-08-26 06:11] LABS: CARBON DIOXIDE 42.7 mmol/L (21.0-32.0)
--- NOTE | 2019-08-26 09:34 | NUR ---
PT TAKEN TO THE APPAREL RENTAL CLERK VIA BED.
--- NOTE | 2019-08-26 10:26 | NUR ---
SPOKE WITH EMILY COLLINS FROM [employer]RI[employer] SHE STATES DR. BONNER DID A LEFT HEART CATH X1 STENT AND X1 BALLON TO THE RCA DONE DISTAL. GAVE 4000 UNITS OF HEPARIN, 4 VERSED, 100 FENTANYL. 6 CANADIAN EXOCIL RIGHT GROIN. PT IS TO LAY FLAT FOR FOUR HOURS.
--- NOTE | 2019-08-26 10:40 | NUR ---
PT RETURNED FROM SALES SERVICE REPRESENTATIVE LAYING FLAT. ALERT AND ORIENTED. O2 AT 3.5L VIA NC. VS STABLE. RIGHT GROIN SOFT, SHOWS NO S/S OF HEMATOMA, DRESSING C/D/I. PP CHECKED. FAMILY AT BEDSIDE. EMLIY COLLINS STATES DR. BONNER DC'D CARDIZEM DRIP. LEFT UPPER ARM 20G IV INFUSING NS AT 100ML/HR. WILL CONTINUE TO MONITOR.
--- NOTE | 2019-08-26 10:56 | NUR ---
PT STILL LAYING FLAT. VS STABLE. RIGHT GROIN SOFT, SHOWS NO S/S OF HEMATOMA, DRESSING C/D/I. PP CHECKED. PT STATES SHE HAS NO FURTHER NEEDS AT THIS TIME. BED LOW. CL IN REACH. WILL CONTINUE TO MONITOR.
--- NOTE | 2019-08-26 12:49 | NUR ---
PT LYING FLAT. RIGHT GROIN SOFT, DRESSING C/D/I. PP CHECKED. WILL CONTINUE TO MONITOR.
--- NOTE | 2019-08-26 14:23 | NUR ---
PT'S HOB RAISED SLOWLY TO 30 DEGREES. RIGHT GROIN SOFT, SHOWS NO S/S OF HEMATOMA, DRESSING C/D/I. PP CHECKED. WILL CONTINUE TO MONITOR. FAMILY AT BEDSIDE. BED LOW. CL IN REACH.
--- NOTE | 2019-08-26 15:28 | EC ---
PATIENT:JAZMINE BALLARD DATE OF SERVICE: 08/24/19 SEX: F MEDICAL RECORD: [id number] DATE OF : [birth year] LOCATION:D. D.212 AGE OF PATIENT: 74 ADMISSION DATE: 08/24/19 REFERRING PHYSICIAN: INTERPRETING PHYSICIAN: RYLEY DAWKINS MD ECHOCARDIOGRAM REPORT ECHO CHARGES 4 ECHO COMPLETE Date: 08/24/19 CLINICAL DIAGNOSIS: CHF/AFIB ECHOCARDIOGRAPHIC MEASUREMENTS (adult normal given) AC root (d.<3.7cm) 3.4 cm LV Septum d (<1.2 cm> 1.4 cm Valve Excursion 1.8 cm LV Septum (systole) 1.5 cm Left Atria (s.<4.0cm> 3.1 cm LVPW d(<1.2cm) 1.7 cm RV (d.<2.3cm) 3.8 cm LVPW (sytole) 1.9 cm LV diastole(<5.6CM) 5.1 cm MV E-F(>70mm/sec) cm LV systole 4.1 cm LVOT Diameter 2.2 cm MV exc.(>10mm) 1.4 cm Est.ejection fraction (50-75%) % DOPPLER: LVIT cm/sec A cm/sec E 50.0 cm/sec LA cm/sec RVSP 18 mmHg LVOT 78 cm/sec AOP1/2T m/s Asc. Ao 87 cm/sec RVOT 74 cm/sec RA cm/sec PA 103 cm/sec AV Gradient Peak 3.03 mmHg AV Mean 1.64 mmHg AV Area 3.2 cm MV Gradient Peak 3.17 mmHg MV Mean 1.35 mmHg MV Area cm COMMENTS: Physical Chemistry Teacher: Ismael MONSALVE Quill Machine Operator: 1 Dr. Dawkins TAPE# PACS Pericardial Effusion N DATE OF SERVICE: ECHOCARDIOGRAM FINDINGS: 1. Left ventricular chamber size is within normal limits. Left ventricular systolic function is normal. Overall ejection fraction estimated at 50% to 55%. 2. Left atrium is within normal limits. Right atrium and right ventricular chamber sizes are mildly dilated. 3. Valvular structures have normal structure and motion. ECHOCARDIOGRAM REPORT [id number] JAZMINE BALLARD 4. Doppler interrogation reveals no significant valvular insufficiency or stenosis. Pulmonary systolic pressure is normal estimated at 18 mmHg. 5. No evidence of pericardial effusion or left ventricular thrombus. 6. The patient is in atrial fibrillation during the study. TRANSINT:[id number] Voice Confirmation ID: [id number] DOCUMENT ID: [id number] RYLEY DAWKINS MD at 1528 CC: [id number] DICTATION DATE: 08/24/19 1442 DIRECTOR POST: 08/24/19 1835 ADM IN [facility] [address] [place] [address]
--- NOTE | 2019-08-26 15:28 | OP ---
PATIENT NAME: JAZMINE BALLARD MEDICAL RECORD: [id number] :43 LOCATION:D.M2 D.2127 ADMISSION DATE:08/24/19 SURGEON: RYLEY BONNER MD DATE OF OPERATION: 08/26/2019 PROCEDURES: 1. PTCA and stent of RCA. 2. Left heart catheterization. 3. Selective coronary angiography. 4. Left ventriculogram. 5. IFR. INDICATION: Non-Q-wave myocardial infarction. DESCRIPTION OF PROCEDURE: After informed consent was obtained and after detailed explanation of the risks, benefits as well as alternative therapies, the patient elected to proceed with angiogram and angioplasty. The right femoral area was prepped and draped in normal sterile fashion. Right femoral artery was cannulated via modified Seldinger technique with placement of 6-Tamazight sheath. All catheters exchanged through this sheath. FINDINGS: The left ventriculogram was performed in standard 30-degree PEREZ view, reveals global hypokinesis, ejection fraction 35% to 40%. SELECTIVE CORONARY ANGIOGRAPHY: 1. Left main is with no significant angiographic disease. 2. Left anterior descending has a previously placed stent. No significant restenosis. No disease elsewise throughout the LAD or its branches. 3. Left circumflex has a questionable stenosis in the mid vessel; however, IFR was normal at 0.93. 4. The right coronary has previously placed stent. This is widely patent. After this, the right coronary has a PDA branch that is subtotally occluded. PTCA AND STENT OF THE RCA: The stent used was 2.5 x 8-mm [place]. Result was 0% residual stenosis. OVERALL IMPRESSION: Successful PTCA and stent of the RCA going from 95% initial stenosis to 0% residual. TRANSINT:[id number] Voice Confirmation ID: [id number] DOCUMENT ID: [id number] RYLEY BONNER MD at 1528 CC: [id number] DICTATION DATE: 08/26/19 1022 LOCAL OWNER OPERATOR TRUCK DRIVER: 08/26/19 1138 [place] [address]
--- NOTE | 2019-08-26 15:28 | CN ---
PATIENT NAME:JAZMINE HERMOSILLO MEDICAL RECORD: [id number] : 43 LOCATION:D. D.2127 ADMIT DATE: 08/24/19 ACCOUNT: [id number] CONSULTING PHYSICIAN: RYLEY BONNER MD REFERRING PHYSICIAN: HU NAVARRETE MD DATE OF CONSULTATION: 08/24/2019 DIAGNOSES: 1. Non-Q-wave myocardial infarction. 2. Coronary artery disease. 3. Paroxysmal atrial fibrillation. 4. Previous percutaneous transluminal coronary angioplasty stent. 5. Shortness of breath, dyspnea on exertion. 6. Noninsulin-dependent diabetes. 7. Hypertension. 8. Hyperlipidemia. HISTORY OF PRESENT ILLNESS: Ms. Hermosillo presents with chest pain and palpitations, found to be in atrial fibrillation, significant ST-T changes in the lateral leads. Troponin is positive for a non-Q-wave myocardial infarction. She is having no further pain, but she is still in atrial fibrillation. She is on a Cardizem drip as well. She is on IV antibiotics. She has had a cough, sputum production, felt to be secondary to a COPD exacerbation. PHYSICAL EXAMINATION: CONSTITUTIONAL/GENERAL APPEARANCE: Well nourished, well developed, appears stated age. EYES: Lids and conjunctivae noninjected. No discharge. No pallor. ENT: Lips within normal limit. No cyanosis. No pallor. NECK: Carotid arteries, bilateral normal upstroke. No bruits. No thrills. No jugular venous pressure or distention. CERVICAL LYMPH NODES: Nontender. Nonenlarged. THYROID: Not enlarged. No nodules. CARDIOVASCULAR: Heart is irregularly irregular with atrial fibrillation. RESPIRATORY: Respiratory effort, unlabored. Normal curvature. No thoracic deformity. No chest wall tenderness. Percussion, resonant. Auscultation, clear. No wheezes, no rales, no rhonchi. ABDOMEN: Soft, nondistended, nontender. No abdominal pain, no vomiting and normal appetite. MUSCULOSKELETAL: No joint tenderness, normal gait, normal tone. SKIN: Warm and dry. OVERALL IMPRESSION: Atrial fibrillation with rapid ventricular response. At this time, we will control the atrial fibrillation. Continue the Cardizem drip and increase as needed and tolerated, increase the sotalol to 120 mg b.i.d. and start her on aspirin, Plavix and will proceed with coronary angiography as well in the near future. TRANSINT:[id number] Voice Confirmation ID: [id number] DOCUMENT ID: [id number] CONSULT REPORT [id number] JAZMINE HERMOSILLO, RYLEY MURDOCK at 1528 CC: [id number] DICTATION DATE: 08/24/19 1526 MOBILE PAINT SPECIALIST: 08/24/19 193 ADM IN [facility] [id number] [place] [address]
--- NOTE | 2019-08-26 15:44 | MORECARE ---
CASE MANAGEMENT DISCHARGE SUMMARY PATIENT: JAZMINE BALLARD UNIT: [id number] ADM DATE: 08/24/19 AGE: 74 : 44 SEX: F ROOM/BED: D.5305 AUTHOR: RAMSES,DOC PHYSICIAN: REFERRING PHYSICIAN: HU NAVARRETE MD DATE OF SERVICE: 08/26/19 Discharge Plan Patient Name: JAZMINE BALLARD Facility: [facility]:[place] : 1945 Planned Disposition: Anticipated Discharge Date: Discharge Date: Expected LOS: Initial Reviewer: [email or web address] Initial Review Date: 08/24/2019 Generated: 08/26/19 4:43 pm DCP- Discharge Planning Updated by [email or web address]: Stan Amaya on 08/24/19 4:[address] Patient Name: JAZMINE BALLARD Encounter No: [id number] : 1945 Primary Insurance: MEDICARE A & B Anticipated DC Date: Planned Disposition: External Planned Provider: [facility] DCP follow-up note: CM RECEIVED CALL FROM SONIDO OF [facility], THEY WERE TRYING TO ASSIST PT WITH GETTING INTO [facility] FROM HOME PRIOR TO HOSPITAL ADMISSION. PT REQUIRES RAFAT ASSESSMENT AND THAT HAS NOT BEEN DONE. CM TO SEND REFERRAL TO [facility] AND COMPLETE AND SUBMIT FOR RAFAT SCREENING APPROVAL SOON POSSIBLE. STAN AMAYA,CASE MANAGEMENT Stan Amaya DCP- Discharge Planning Updated by [email or web address]: Ary Arellano on 08/24/19 1:[address] CM met with patient to discuss initial discharge planning. Patient is in agreement to proceed with assessment with her daughter, Kaylin Naylor #[phone] present. Patient is alert/oriented, using C-pap at present. Patient is unable to ambulate, reports frequent falls. Daughter will provide information. Patient lives with her daughter, Roslyn Smart #[phone]. Stairs/steps: Ramp. PCP: Dr. Quiñonez. Pharmacy: [facility], patient has been able to obtain all medications. HHS: [facility]. DME: [employer]: Home O2, Nebulizer, walker, w/c, cane, BSC, hospital bed, estevan lift, scooter, shower chair (does not use d/t falls). Patient gives permission to speak with family members/care givers. Emergency contact: Roslyn Smart #[phone]. Total dependent w/ADL's. CM discussed the availability of HH, Rehab, DME services. Patient was recently discharged from in-patient rehab (08/17) to [facility] and per daughter, family picked her up the next morning due to "problems". Daughter states that "[facility] will be ACCEPTING patient in approximately 14 days." Recently hospitalized 08/02 and discharged from in-patient rehab 08/17 to [facility]. 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 Transportation at time of discharge: dependent on place of discharge. CM will follow and assist with further discharge plans PRN. External Providers External Provider: ALLAN Parrish Next Contact Date: 08/01/2019 Service Request Date: Service Type: Resolution: Reviewer: Comments: Last DP export: 08/24/19 4:07 Patient Name: JAZMINE BALLARD Page [phone] at 1544 All edits/amendments must be made on the electronic document DICTATION DATE: 08/26/191542 CHICKEN VACCINATOR: MARY 08/26/191542 RPT#: [id number] DC DATE: STATUS: ADM IN [facility] [address] [place] [address] END OF REPORT
--- NOTE | 2019-08-26 16:06 | MORECARE ---
CASE MANAGEMENT DISCHARGE SUMMARY PATIENT: JAZMINE BALLARD UNIT: [id number] ADM DATE: 08/24/19 AGE: 74 : 44 SEX: F ROOM/BED: D.5890 AUTHOR: RAMSES,DOC PHYSICIAN: REFERRING PHYSICIAN: HU NAVARRETE MD DATE OF SERVICE: 08/26/19 Discharge Plan Patient Name: JAZMINE BALLARD Facility: [facility]:[place] : 1945 Planned Disposition: Inpatient Rehab Anticipated Discharge Date: Discharge Date: Expected LOS: Initial Reviewer: [email or web address] Initial Review Date: 08/24/2019 Generated: 08/26/19 5:06 pm Comments DCP- Discharge Planning Updated by [email or web address]: Israel Amaya on 08/26/19 3:[address] Patient Name: JAZMINE BALLARD Encounter No: [id number] : 1945 Primary Insurance: MEDICARE A & B Anticipated DC Date: Planned Disposition: Inpatient Rehab External Planned Provider: [facility] DCP follow-up note: CM MET WITH PT AND DAUGHTER, KAYLIN DALLAS IN ROOM, DISCUSSED ORDER FOR PLACEMENT. PT GAVE PERMISSION TO DISCUSS HER CARE AND TREATMENT WITH DAUGHTER, KAYLIN. PT REPORTS SHE WANTS REHAB AT [facility], BUT WANTS REHAB AT [facility] FIRST HER DR, DR. QUIÑONEZ, IS THE DIRECTOR THERE AND ALWAYS GETS HER IN THERE. CHOICE FOR [facility] SIGNED. PT ASSISTED WITH COMPLETING RAFAT SCREENING FORM. CM OBTAINED SIGNAURE ON RAFAT FROM [facility]. CM FAXED RAFAT SCREENING FORM TO [employer]. PT WANTS REHAB AT [facility] IN[facility]IENT RE[facility]. CM WAITING INPATIENT REHAB PRESCREENING ORDER AND PHYSICAL THERAPY EVALUATION WHEN PT IS MORE MEDICALLY STABLE AND CLOSER TO HOSPITAL DISCHARGE. SABRINA Rodriguez DCP- Discharge Planning Updated by [id number]: Israel Amaya on 08/24/19 4:[address] Patient Name: JAZMINE BALLARD Encounter No: [id number] : 1945 Primary Insurance: MEDICARE A & B Anticipated DC Date: Planned Disposition: External Planned Provider: [facility] DCP follow-up note: CM RECEIVED CALL FROM SONIDO OF [employer] [facility], THEY WERE TRYING TO ASSIST PT WITH GETTING INTO [facility] FROM HOME PRIOR TO HOSPITAL ADMISSION. PT REQUIRES RAFAT ASSESSMENT AND THAT HAS NOT BEEN DONE. CM TO SEND REFERRAL TO [facility] AND COMPLETE AND SUBMIT FOR RAFAT SCREENING APPROVAL SOON POSSIBLE. ISRAEL AMAYA,CASE MANAGEMENT Israel Amaya DCP- Discharge Planning Updated by [email or web address]: Ary Sealslroy on 08/24/19 1:[address] CM met with patient to discuss initial discharge planning. Patient is in agreement to proceed with assessment with her daughter, Kaylin [place] #[phone] present. Patient is alert/oriented, using C-pap at present. Patient is unable to ambulate, reports frequent falls. Daughter will provide information. Patient lives with her daughter, Roslyn Smart #[phone]. Stairs/steps: Ramp. PCP: Dr. Quiñonez. Pharmacy: [facility], patient has been able to obtain all medications. HHS: [facility]. DME: [employer]: Home O2, Nebulizer, walker, w/c, cane, BSC, hospital bed, estevan lift, scooter, shower chair (does not use d/t falls). Patient gives permission to speak with family members/care givers. Emergency contact: Roslyn Smart #[phone]. Total dependent w/ADL's. CM discussed the availability of HH, Rehab, DME services. Patient was recently discharged from in-patient rehab (08/17) to [facility] and per daughter, family picked her up the next morning due to "problems". Daughter states that "[facility] will be ACCEPTING patient in approximately 14 days." Recently hospitalized 08/02 and discharged from in-patient rehab 08/17 to [facility]/rehab. 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 Transportation at time of discharge: dependent on place of discharge. CM will follow and assist with further discharge plans PRN. Coverage Notice Reviewer: [id number] - Israel Amaya Notice Issued Date-Time: 08/26/2019 13:50 Notice Type: IM Discharge Notice Notice Delivered To: Family Member Relationship to Patient: Daughter Stand Up Comedian Name: KAYLIN CHAUDHARY Delivery Method: HAND - Hand Delivered Ewa Days: Prior Verbal Notification: Recipient Understood Notice: Yes Recipient Signature: Yes Med Rec Note Co-signed by Attending: Coverage Notice Comment: YOKO Wasserman DP export: 08/26/19 2:43 Patient Name: JAZMINE BALLARD Page [phone] at 1606 All edits/amendments must be made on the electronic document DICTATION DATE: 08/26/191605 MOLD CLOSER: MARY 08/26/191605 RPT#: [id number] DC DATE: STATUS: ADM IN [facility] [address] [place] [address] END OF REPORT
--- NOTE | 2019-08-26 18:25 | NUR ---
PT WANTING TO KNOW ABOUT HOME MEDICATIONS AND IF SOLUMEDROL WILL BE DC'D. VALERIANO HERNANDEZ.
--- NOTE | 2019-08-26 18:26 | NUR ---
I CONCUR WITH MAJOR ASSEMBLER ASSESSMENT OF THIS PATIENT.
--- NOTE | 2019-08-26 18:32 | NUR ---
SPOKE WITH MUKUND RIVERO AND SHE STATES TO CHANGE SOLUMEDROL TO 60MG BID AND RESTART HOME MEDS EXCEPT FOR THE MOBIC AND VITAMIN D. IVERBALIZED UNDERSTANDING.
--- NOTE | 2019-08-26 19:00 | NUR ---
RIGHT GROIN SOFT, DRESSING C/D/I. PP CHECKED. WILL CONTINUE TO MONITOR. PT HAS NO FURTHER NEEDS AT THIS TIME.
--- NOTE | 2019-08-26 19:10 | NUR ---
PT LAYING IN BED ALERT AND ORIENTED X4. PT COMPLAINS OF PAIN IN BACK. PRN PAIN MEDICATION GIVEN. LINENS CHANGED. FAMILY AT BEDSIDE. NO S/S OF DISTRESS PT DENIES ANY FURTHER NEEDS AT THIS TIME. BED LOW CALL LIGHT WITHIN REACH WILL CONTINUE TO MONITOR.
[2019-08-27] VITALS: BP 152/60
--- NOTE | 2019-08-27 03:06 | NUR ---
I have reviewed this patient and I concur with the Shift Assessment completed by the Licensed Practical Nurse today this shift.
[2019-08-27 04:30] VITALS: BP 162/73
[2019-08-27 06:02] LABS: BASOPHILS 0 % (0-2); EOSINOPHILS 0 % (0-7); HEMATOCRIT 37.8 % (36.0-48.0); HEMOGLOBIN 11.4 g/dL (12-16); IMMATURE GRANULOCYTES 0.2 % (0-5); MCH 29.7 pg (26.0-34.0); MCHC 30.2 g/dL (31.0-37.0); MCV 98.4 fL (80.0-100.0); MEAN PLATELET VOLUME 11.2 fL (7.4-10.4); MONOCYTES 10.2 % (2-11); NEUTROPHILS 74.6 % (40-80); PLATELET COUNT 169 10x3/uL (130-400); RBC 3.84 10x6/uL (4.00-5.40); RDW 14.2 % (11.5-14.5)
[2019-08-27 06:14] LABS: ALBUMIN 2.4 g/dL (3.4-5.0); BILIRUBIN - TOTAL 0.29 mg/dL (0.2-1.3); CALCIUM 7.7 mg/dL (8.5-10.1); CREATININE - SERUM 0.8 mg/dL (0.6-1.3); POTASSIUM - SERUM 3.7 mmol/L (3.5-5.1); PROTEIN - SERUM 5.3 g/dL (6.4-8.2)
[2019-08-27 06:15] LABS: ANION GAP 5.4 mmol/L (8-16); CARBON DIOXIDE 42.3 mmol/L (21.0-32.0)
[2019-08-27 06:32] LABS: WBC 4.8 10x3/uL (4.8-10.8)
--- NOTE | 2019-08-27 08:03 | NUR ---
ASSESSMENT DONE. DENIES NEEDED
[2019-08-27 08:36] VITALS: BP 147/73
--- NOTE | 2019-08-27 09:47 | NUR ---
I have reviewed this patient and I concur with the Shift Assessment completed by the Licensed Practical Nurse today this shift.
[2019-08-27 12:30] VITALS: BP 145/68
[2019-08-27 16:07] VITALS: BP 101/53
[2019-08-27 20:03] VITALS: BP 106/43
--- NOTE | 2019-08-27 20:25 | NUR ---
INITIAL ROUNDS COMPLETED AT 191 HRS. PT HAS C/O CHRONIC BACK PAIN AND NEED FOR BEDPAN. PT PLACED ON BEDPAN. VOIDED 150CC OF YELLOW URINE. NORCO 10/325 PO GIVEN FOR C/O CHRONIC BACK PAIN. ASSESSMENT COMPLETED AT 194 HRS. SB PER CM HR 54. ALERT AND ORIENTED TO PERSON, PLACE AND TIME. CAGLE. IV TO UPPER L ARM SL. O2 3LNC. LUNGS DIMINISHED IN BASES BILAT. L GROIN CLEAN, DRY AND INTACT. PALPABLE PERIPHERAL PULSES. 2+ PITTING EDEMA TO FEET NOTED. BRUISES NOTED. TO BILAT ARMS. DAUGHTER AT BEDSIDE. SR UP X2, CALL LIGHT WITHIN REACH.
--- NOTE | 2019-08-27 21:45 | NUR ---
PM FSBS 129. NO COVERAGE NEEDED. PM SNACK SERVED. PM MEDS GIVEN WITHOUT DIFFICULTY. SR UP X2, CALL LIGHT WITHIN REACH AND DAUGHTER AT BEDSIDE.
--- NOTE | 2019-08-28 00:18 | NUR ---
ADDITIONAL BLANKET GIVEN PER REQUEST. NO DISTRESS NOTED. SR UP X2, CALL LIGHT WITHIN REACH AND DAUGHTER AT BEDSIDE.
[2019-08-28 00:30] VITALS: BP 119/66
--- NOTE | 2019-08-28 02:02 | NUR ---
PT RESTING WITH EYES CLOSED. RESP EVEN AND REGULAR. SR UP X2, CALL LIGHT WITHIN REACH AND DAUGHTER AT BEDSIDE.
--- NOTE | 2019-08-28 04:12 | NUR ---
COLACE PO GIVEN FOR C/O CONSTIPATION. PT INCONTINENT OF A LARGE AMOUNT OF URINE. PT CLEANED, BED LINENS CHANGED. PT REPOSITIONED IN BED FOR COMFORT. SR UP X2, CALL LIGHT WITHIN REACH, BED ALARM ON AND DAUGHTER AT BEDSIDE.
[2019-08-28 04:46] VITALS: BP 125/62
--- NOTE | 2019-08-28 06:50 | NUR ---
AM FSBS 133. NO COVERAGE NEEDED. PT STATED NORCP CONTROLLED CHRONIC BACK PAIN. INC OF URINE X2 DURNG SHIFT. NEEDS MET; WILL CONTINUE TO MONITOR.
[2019-08-28 07:02] LABS: BASOPHILS 0 % (0-2); EOSINOPHILS 0 % (0-7); HEMATOCRIT 40.2 % (36.0-48.0); HEMOGLOBIN 12.1 g/dL (12-16); IMMATURE GRANULOCYTES 0.2 % (0-5); LYMPHOCYTES 24.6 % (15-50); MCH 29.9 pg (26.0-34.0); MCHC 30.1 g/dL (31.0-37.0); MCV 99.3 fL (80.0-100.0); MEAN PLATELET VOLUME 11.1 fL (7.4-10.4); NEUTROPHILS 63.2 % (40-80); PLATELET COUNT 171 10x3/uL (130-400); RBC 4.05 10x6/uL (4.00-5.40); RDW 14.3 % (11.5-14.5); WBC 5.4 10x3/uL (4.8-10.8)
[2019-08-28 07:04] LABS: ALBUMIN 2.5 g/dL (3.4-5.0); BILIRUBIN - TOTAL 0.25 mg/dL (0.2-1.3); CALCIUM 8.2 mg/dL (8.5-10.1); CREATININE - SERUM 0.8 mg/dL (0.6-1.3); POTASSIUM - SERUM 3.8 mmol/L (3.5-5.1); PROTEIN - SERUM 6.1 g/dL (6.4-8.2)
[2019-08-28 07:10] LABS: ANION GAP 4.8 mmol/L (8-16)
--- NOTE | 2019-08-28 07:54 | NUR ---
ALERT AND ORIENTED. TELEMERTY SHOWS SB 55. 02 AT 3 LM PER NC. UPPER LEFT ARM IV SL. EDEMA TO FEET. LUNGS DIMISHED. WILL MONITOR
[2019-08-28 08:00] VITALS: BP 161/81
[2019-08-28 12:00] VITALS: BP 158/68
--- NOTE | 2019-08-28 15:39 | NUR ---
HEAD OF BED UP TALKING WITH FAMILY. DENIES ANY NEEDS.TELEMERTY SHOWS SB 58
[2019-08-28 16:00] VITALS: BP 142/96
--- NOTE | 2019-08-28 19:38 | NUR ---
REPORT RECEIVED. MT ALERT AND ORIENTED. WATCHING TV. RR EVEN AND UNLABORED ON 3L, NO S/S OF DISTRESS NOTED AT THIS TIME. NO NEEDS EXPRESSED. DAUGHTER AT BEDSIDE. SRX2, CALL LIGHT IN REACH. WILL CTM.
[2019-08-28 20:30] VITALS: BP 137/64
[2019-08-29 00:13] VITALS: BP 130/61
[2019-08-29 04:26] VITALS: BP 145/67
[2019-08-29 06:39] LABS: ALBUMIN 2.6 g/dL (3.4-5.0); BASOPHILS 0 % (0-2); BILIRUBIN - TOTAL 0.3 mg/dL (0.2-1.3); CALCIUM 8.5 mg/dL (8.5-10.1); CREATININE - SERUM 0.8 mg/dL (0.6-1.3); EOSINOPHILS 1.2 % (0-7); HEMATOCRIT 41.8 % (36.0-48.0); HEMOGLOBIN 12.6 g/dL (12-16); IMMATURE GRANULOCYTES 0.5 % (0-5); LYMPHOCYTES 30.4 % (15-50); MCH 30.1 pg (26.0-34.0); MCHC 30.1 g/dL (31.0-37.0); MEAN PLATELET VOLUME 11.1 fL (7.4-10.4); NEUTROPHILS 57.9 % (40-80); PLATELET COUNT 202 10x3/uL (130-400); POTASSIUM - SERUM 3.4 mmol/L (3.5-5.1); PROTEIN - SERUM 6.1 g/dL (6.4-8.2); RBC 4.18 10x6/uL (4.00-5.40); RDW 14.3 % (11.5-14.5); WBC 5.7 10x3/uL (4.8-10.8)
[2019-08-29 06:40] LABS: ANION GAP 2.3 mmol/L (8-16)
[2019-08-29 06:42] LABS: CARBON DIOXIDE 43.1 mmol/L (21.0-32.0)
--- NOTE | 2019-08-29 07:28 | MORECARE ---
CASE MANAGEMENT DISCHARGE SUMMARY PATIENT: JAZMINE BALLARD UNIT: [id number] ADM DATE: 08/24/19 AGE: 74 : 44 SEX: F ROOM/BED: D.6157 AUTHOR: RAMSES,DOC PHYSICIAN: REFERRING PHYSICIAN: HU NAVARRETE MD DATE OF SERVICE: 08/29/19 Discharge Plan Patient Name: JAZMINE BALLARD Facility: [facility]:[place] : 1945 Planned Disposition: Inpatient Rehab Anticipated Discharge Date: Discharge Date: Expected LOS: Initial Reviewer: [email or web address] Initial Review Date: 08/24/2019 Generated: 08/29/19 8:27 am Comments DCP- Discharge Planning Updated by [id number]: Israel Amaya on 08/26/19 3:[address] Patient Name: JAZMINE BALLARD Encounter No: [id number] : 1945 Primary Insurance: MEDICARE A & B Anticipated DC Date: Planned Disposition: Inpatient Rehab External Planned Provider: [facility] DCP follow-up note: CM MET WITH PT AND DAUGHTER, KAYLIN DALLAS IN ROOM, DISCUSSED ORDER FOR PLACEMENT. PT GAVE PERMISSION TO DISCUSS HER CARE AND TREATMENT WITH DAUGHTER, KAYLIN. PT REPORTS SHE WANTS REHAB AT [facility], BUT WANTS REHAB AT [facility] FIRST HER DR, DR. QUIÑONEZ, IS THE DIRECTOR THERE AND ALWAYS GETS HER IN THERE. CHOICE FOR [facility] SIGNED. PT ASSISTED WITH COMPLETING RAFAT SCREENING FORM. CM OBTAINED SIGNAURE ON RAFAT FROM [employer]. CM FAXED RAFAT SCREENING FORM TO [employer]. PT WANTS REHAB AT [facility] INPATIENT RE[facility]. CM WAITING INPATIENT REHAB PRESCREENING ORDER AND PHYSICAL THERAPY EVALUATION WHEN PT IS MORE MEDICALLY STABLE AND CLOSER TO HOSPITAL DISCHARGE. SABRINA Rodriguez DCP- Discharge Planning Updated by [id number]: Israel Amaya on 08/24/19 4:[address] Patient Name: JAZMINE BALLARD Encounter No: [id number] : 1945 Primary Insurance: MEDICARE A & B Anticipated DC Date: Planned Disposition: External Planned Provider: [facility] DCP follow-up note: CM RECEIVED CALL FROM SONIDO OF [employer] [facility], THEY WERE TRYING TO ASSIST PT WITH GETTING INTO [facility] FROM HOME PRIOR TO HOSPITAL ADMISSION. PT REQUIRES RAFAT ASSESSMENT AND THAT HAS NOT BEEN DONE. CM TO SEND REFERRAL TO [facility] AND COMPLETE AND SUBMIT FOR RAFAT SCREENING APPROVAL SOON POSSIBLE. ISRAEL AMAYA,CASE MANAGEMENT Israel Amaya DCP- Discharge Planning Updated by [id number]: Ary Sealslroy on 08/24/19 1:[address] CM met with patient to discuss initial discharge planning. Patient is in agreement to proceed with assessment with her daughter, Kaylin [place] #[phone] present. Patient is alert/oriented, using C-pap at present. Patient is unable to ambulate, reports frequent falls. Daughter will provide information. Patient lives with her daughter, Roslyn Smart #[phone]. Stairs/steps: Ramp. PCP: Dr. Quiñonez. Pharmacy: [facility], patient has been able to obtain all medications. HHS: [facility]. DME: [employer]: Home O2, Nebulizer, walker, w/c, cane, BSC, hospital bed, estevan lift, scooter, shower chair (does not use d/t falls). Patient gives permission to speak with family members/care givers. Emergency contact: Roslyn Smart #[phone]. Total dependent w/ADL's. CM discussed the availability of HH, Rehab, DME services. Patient was recently discharged from in-patient rehab (08/17) to [facility] and per daughter, family picked her up the next morning due to "problems". Daughter states that "[facility] will be ACCEPTING patient in approximately 14 days." Recently hospitalized 08/02 and discharged from in-patient rehab 08/17 to [facility]/rehab. 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 Transportation at time of discharge: dependent on place of discharge. CM will follow and assist with further discharge plans PRN. External Providers External Provider: [facility] Next Contact Date: 08/29/2019 Service Request Date: Service Type: Resolution: Reviewer: Comments: Coverage Notice Reviewer: [id number] - Israel Amaya Notice Issued Date-Time: 08/26/2019 13:50 Notice Type: IM Discharge Notice Notice Delivered To: Family Member Relationship to Patient: Daughter Upper Cutter Name: KAYLIN CHAUDHARY Delivery Method: HAND - Hand Delivered Ewa Days: Prior Verbal Notification: Recipient Understood Notice: Yes Recipient Signature: Yes Med Rec Note Co-signed by Attending: Coverage Notice Comment: YOKO Wasserman DP export: 08/26/19 3:06 Patient Name: JAZMINE BALLARD Page [phone] at 0728 All edits/amendments must be made on the electronic document DICTATION DATE: 08/29/19726 CLINICAL RESOURCE MANAGER: MARY 08/29/19726 RPT#: [id number] DC DATE: STATUS: ADM IN [facility] [address] [place] [address] END OF REPORT
--- NOTE | 2019-08-29 07:34 | MORECARE ---
CASE MANAGEMENT DISCHARGE SUMMARY PATIENT: JAZMNIE BALLARD UNIT: [id number] ADM DATE: 08/24/19 AGE: 74 : 44 SEX: F ROOM/BED: D.8202 AUTHOR: RAMSES,DOC PHYSICIAN: REFERRING PHYSICIAN: HU NAVARRETE MD DATE OF SERVICE: 08/29/19 Discharge Plan Patient Name: JAZMINE BALLARD Facility: [facility]:[place] : 1945 Planned Disposition: Inpatient Rehab Anticipated Discharge Date: Discharge Date: Expected LOS: Initial Reviewer: [id number] Initial Review Date: 08/24/2019 Generated: 08/29/19 8:34 am Comments DCP- Discharge Planning Updated by [id number]: Israel Amaya on 08/29/19 6:[address] Patient Name: JAZMINE BALLARD Encounter No: [id number] : 1945 Primary Insurance: MEDICARE A & B Anticipated DC Date: Planned Disposition: Inpatient Rehab External Planned Provider: [facility] INPATIENT REHAB DCP follow-up note: CM FAXED REFERRAL TO [facility], . CM OBTAINED ORDER FOR INPATIENT REHAB PRESCREENING, WAITING RESULTS OF PRESCREENING AND ADMISSION DETERMINATION FROM [facility] INPATIENT REHAB. CM WAITING ADMISSION DETERMINATION FROM [facility] NURSING AND REHAB. CM WAITING RAFAT SCREENING RESULTS. Israel Amaya CASE MANAGEMENT DCP- Discharge Planning Updated by [email or web address]: Israel Amaya on 08/26/19 3:[address] Patient Name: JAZMINE BALLARD Encounter No: [id number] : 1945 Primary Insurance: MEDICARE A & B Anticipated DC Date: Planned Disposition: Inpatient Rehab External Planned Provider: [facility] INPATIENT REHAB DCP follow-up note: CM MET WITH PT AND DAUGHTER, KAYLIN DALLAS IN ROOM, DISCUSSED ORDER FOR PLACEMENT. PT GAVE PERMISSION TO DISCUSS HER CARE AND TREATMENT WITH DAUGHTERKAYLIN. PT REPORTS SHE WANTS REHAB AT [facility], BUT WANTS REHAB AT [facility] FIRST HER DR, DR. QUIÑONEZ, IS THE DIRECTOR THERE AND ALWAYS GETS HER IN THERE. CHOICE FOR [facility] SIGNED. PT ASSISTED WITH COMPLETING RAFAT SCREENING FORM. CM OBTAINED SIGNAURE ON RAFAT FROM [facility]. CM FAXED RAFAT SCREENING FORM TO [facility]. PT WANTS REHAB AT [facility] INPATIENT REHAB. CM WAITING INPATIENT REHAB PRESCREENING ORDER AND PHYSICAL THERAPY EVALUATION WHEN PT IS MORE MEDICALLY STABLE AND CLOSER TO HOSPITAL DISCHARGE. Israel Amaya, CASE MANAGEMENT DCP- Discharge Planning Updated by [id number]: Israel Amaya on 08/24/19 4:[address] Patient Name: JAZMINE BALLARD Encounter No: [id number] : 1945 Primary Insurance: MEDICARE A & B Anticipated DC Date: Planned Disposition: External Planned Provider: [facility] NURSING AND REHAB DCP follow-up note: CM RECEIVED CALL FROM SONIDO OF [employer], THEY WERE TRYING TO [facility] TO [facility] ADMISSION. PT REQUIRES RAFAT ASSESSMENT AND THAT HAS NOT BEEN DONE. CM TO SEND REFERRAL TO [facility] AND COMPLETE AND SUBMIT FOR RAFAT SCREENING APPROVAL SOON POSSIBLE. ISRAEL AMAYA,CASE MANAGEMENT Israel Amaya DCP- Discharge Planning Updated by [id number]: Arychristina Arellano on 08/24/19 1:[address] CM met with patient to discuss initial discharge planning. Patient is in agreement to proceed with assessment with her daughter, Kaylin Dallas #[phone] present. Patient is alert/oriented, using C-pap at present. Patient is unable to ambulate, reports frequent falls. Daughter will provide information. Patient lives with her daughter, Roslyn Smart #[phone]. Stairs/steps: Ramp. PCP: Dr. Quiñonez. Pharmacy: [facility], patient has been able to obtain all medications. HHS: [facility] . DME: [facility]: Home O2, Nebulizer, walker, w/c, cane, BSC, hospital bed, estevan lift, scooter, shower chair (does not use d/t falls). Patient gives permission to speak with family members/care givers. Emergency contact: Roslyn Samrt #[phone]. Total dependent w/ADL's. CM discussed the availability of HH, Rehab, DME services. Patient was recently discharged from [facility]-patient [facility]hab (08/17) to [facility] and per daughter, family picked her up the next morning due to "problems". Daughter states that "[facility] will be ACCEPTING patient in approximately 14 days." Recently hospitalized 08/02 and discharged from in-patient rehab 08/17 to [facility]/rehab. 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 Transportation at time of discharge: dependent on place of discharge. CM will follow and assist with further discharge plans PRN. Coverage Notice Reviewer: [id number] Lobo Amaya Notice Issued Date-Time: 08/26/2019 13:50 Notice Type: IM Discharge Notice Notice Delivered To: Family Member Relationship to Patient: Daughter Automatic Transmission Mechanic Name: KAYLIN CHAUDHARY Delivery Method: HAND - Hand Delivered Ewa Days: Prior Verbal Notification: Recipient Understood Notice: Yes Recipient Signature: Yes Med Rec Note Co-signed by Attending: Coverage Notice Comment: YOKO Lux DP export: 08/29/19 6:28 a Patient Name: JAZMINE BALLARD Page [id number] at 0734 All edits/amendments must be made on the electronic document DICTATION DATE: 08/29/19733 EDITORIAL MANAGER: MARY 08/29/1935 RPT#: [id number] DC DATE: STATUS: ADM IN [facility] [address] [place] [address] END OF REPORT
--- NOTE | 2019-08-29 09:37 | NUR ---
LEFT UPPER ARM 20G IV LEAKING. DC'D WITH CATH INTACT. WILL RESTART IV.
--- NOTE | 2019-08-29 10:13 | NUR ---
RIGHT FA 22G IV INSERTED ON FOURTH ATTEMPT.
[2019-08-29 10:42] VITALS: BP 141/62
--- NOTE | 2019-08-29 11:09 | NUR ---
I have reviewed this patient and I concur with the Shift Assessment completed by the Licensed Practical Nurse today this shift.
--- NOTE | 2019-08-29 11:30 | MORECARE ---
CASE MANAGEMENT DISCHARGE SUMMARY PATIENT: JAZMINE BALLARD UNIT: [id number] ADM DATE: 08/24/19 AGE: 74 : 44 SEX: F ROOM/BED: D.5456 AUTHOR: RAMSES,DOC PHYSICIAN: REFERRING PHYSICIAN: HU NAVARRETE MD DATE OF SERVICE: 08/29/19 Discharge Plan Patient Name: JAZMINE BALLARD Facility: [facility]:[place] : 1945 Planned Disposition: Inpatient Rehab Anticipated Discharge Date: Discharge Date: Expected LOS: Initial Reviewer: [id number] Initial Review Date: 08/24/2019 Generated: 08/29/19 12:29 pm Comments DCP- Discharge Planning Updated by [id number]: Israel Amaya on 08/29/19 10:[address] Patient Name: JAZMINE BALLARD Encounter No: [id number] : 1945 Primary Insurance: MEDICARE A & B Anticipated DC Date: Planned Disposition: Inpatient Rehab External Planned Provider: [facility] INPATIENT REHAB DCP follow-up note: CM RECEIVED RAFAT NON PASRR AND MAY ENTER LONG TERM FACILITY. CM FAXED TO [facility] AT [phone]. CM WAITING RESULTS OF PRESCREENING AND ADMISSION DETERMINATION FROM [facility] INPATIENT REHAB. CM WAITING ADMISSION DETERMINATION FROM [facility] NURSING AND REHAB. SABRINA Rodriguez DCP- Discharge Planning Updated by [id number]: Israel Amaya on 08/29/19 6:[address] Patient Name: JAZMINE BALLARD Encounter No: [id number] : 1945 Primary Insurance: MEDICARE A & B Anticipated DC Date: Planned Disposition: Inpatient Rehab External Planned Provider: [facility] INPATIENT REH[facility] DCP follow-up note: CM FAXED REFERRAL TO [facility], . CM OBTAINED ORDER FOR INPATIENT REHAB PRESCREENING, WAITING RESULTS OF PRESCREENING AND ADMISSION DETERMINATION FROM [facility] INPATIENT REH[facility]. CM WAITING ADMISSION DETERMINATION FROM [facility] NURSING AND REHAB. CM WAITING RAFAT SCREENING RESULTS. SABRINA Rodriguez MANAGEMENT DCP- Discharge Planning Updated by [id number]: Israel Amaya on 08/26/19 3:[address] Patient Name: JAZMINE BALLARD Encounter No: [id number] : 1945 Primary Insurance: MEDICARE A & B Anticipated DC Date: Planned Disposition: Inpatient Rehab External Planned Provider: [facility] INPATIENT REHAB DCP follow-up note: CM MET WITH PT AND DAUGHTER, KAYLIN DALLAS IN ROOM, DISCUSSED ORDER FOR PLACEMENT. PT GAVE PERMISSION TO DISCUSS HER CARE AND TREATMENT WITH DAUGHTER, KAYLIN. PT REPORTS SHE WANTS REHAB AT [facility], BUT WANTS REHAB AT [facility] FIRST HER DR, DR. QUIÑONEZ, IS THE DIRECTOR THERE AND ALWAYS GETS HER IN THERE. CHOICE FOR [facility] SIGNED. PT ASSISTED WITH COMPLETING RAFAT SCREENING FORM. CM OBTAINED SIGNAURE ON RAFAT FROM [facility]. CM FAXED RAFAT SCREENING FORM TO [facility]. PT WANTS REHAB AT [facility] INPATIENT REHAB. CM WAITING INPATIENT REHAB PRESCREENING ORDER AND PHYSICAL THERAPY EVALUATION WHEN PT IS MORE MEDICALLY STABLE AND CLOSER TO HOSPITAL DISCHARGE. SABRINA Rodriguez DCP- Discharge Planning Updated by [id number]: Israel Amaya on 08/24/19 4:[address] Patient Name: JAZMINE BALLARD Encounter No: [id number] : 1945 Primary Insurance: MEDICARE A & B Anticipated DC Date: Planned Disposition: External Planned Provider: [facility] NURSING AND REHAB DCP follow-up note: CM RECEIVED CALL FROM SONIDO OF [employer] [facility], THEY WERE TRYING TO ASSIST PT WITH GETTING INTO [facility] FROM HOME PRIOR TO HOSPITAL ADMISSION. PT REQUIRES RAFAT ASSESSMENT AND THAT HAS NOT BEEN DONE. CM TO SEND REFERRAL TO [facility] AND COMPLETE AND SUBMIT FOR RAFAT SCREENING APPROVAL SOON POSSIBLE. ISRAEL AMAYA,CASE MANAGEMENT Israel Amaya DCP- Discharge Planning Updated by [id number]: Ary Arellano on 08/24/19 1:[address] CM met with patient to discuss initial discharge planning. Patient is in agreement to proceed with assessment with her daughter, Kaylin Dallas #[phone] present. Patient is alert/oriented, using C-pap at present. Patient is unable to ambulate, reports frequent falls. Daughter will provide information. Patient lives with her daughter, Roslyn Smart #[phone]. Stairs/steps: Ramp. PCP: Dr. Quiñonez. Pharmacy: [facility], [place], patient has been able to obtain all medications. HHS: [facility]. DME: [facility]: Home O2, Nebulizer, walker, w/c, cane, BSC, hospital bed, estevan lift, scooter, shower chair (does not use d/t falls). Patient gives permission to speak with family members/care givers. Emergency contact: Roslyn Smart #[phone]. Total dependent w/ADL's. CM discussed the availability of HH, Rehab, DME services. Patient was recently discharged from in-patient rehab (08/17) to [facility] and per daughter, family picked her up the next morning due to "problems". Daughter states that "[facility]Rehab will be ACCEPTING patient in approximately 14 days." Recently hospitalized 08/02 and discharged from in-patient rehab 08/17 [facility]. 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 Transportation at time of discharge: dependent on place of discharge. CM will follow and assist with further discharge plans PRN. Coverage Notice Reviewer: [id number] - Israel Amaya Notice Issued Date-Time: 08/26/2019 13:50 Notice Type: IM Discharge Notice Notice Delivered To: Family Member Relationship to Patient: Daughter Transportation Attendant Name: KAYLIN CHAUDHARY Delivery Method: HAND - Hand Delivered Ewa Days: Prior Verbal Notification: Recipient Understood Notice: Yes Recipient Signature: Yes Med Rec Note Co-signed by Attending: Coverage Notice Comment: YOKO Wasserman DP export: 08/29/19 6:34 a Patient Name: JAZMINE BALLARD Page [id number] at 1130 All edits/amendments must be made on the electronic document DICTATION DATE: 08/29/191128 PROMOS EXECUTIVE PRODUCER: MARY 08/29/191128 RPT#: [id number] DC DATE: STATUS: ADM IN [facility] [address] [place] [address] END OF REPORT
[2019-08-29 13:34] VITALS: BP 143/69
[2019-08-29] MEDS ORDERED: PLAVIX75 MG PO (13:58)
[2019-08-29] MEDS ORDERED: BETAPACE 120 M120 MG PO (13:59)
--- NOTE | 2019-08-29 14:05 | NUR ---
REHAB PRESCREENING Rehab referral received and chart reviewed. Ms. Hermosillo is refusing therapy and is not a good candidate at this time. Recommend SNF placement vs. ARU. Thank you for this referral! Alice Campos, FIXED WING AIRCRAFT FLIGHT ENGINEER Rehab PD
--- NOTE | 2019-08-29 14:19 | MORECARE ---
CASE MANAGEMENT DISCHARGE SUMMARY PATIENT: JAZMINE BALLARD UNIT: [id number] ADM DATE: 08/24/19 AGE: 74 : 44 SEX: F ROOM/BED: D.2253 AUTHOR: RAMSES,DOC PHYSICIAN: REFERRING PHYSICIAN: HU NAVARRETE MD DATE OF SERVICE: 08/29/19 Discharge Plan Patient Name: JAZMINE BALLARD Facility: [facility]:[place] : 1945 Planned Disposition: Retirement Facility Anticipated Discharge Date: 08/29/19 Discharge Date: Expected LOS: 5 Initial Reviewer: [id number] Initial Review Date: 08/24/2019 Generated: 08/29/19 3:19 pm DCP- Discharge Planning Updated by [email or web address]: Israel Amaya on 08/29/19 10:[address] Patient Name: JAZMINE BALLARD Encounter No: [id number] : 1945 Primary Insurance: MEDICARE A & B Anticipated DC Date: Planned Disposition: Inpatient Rehab External Planned Provider: [facility] INPATIENT REHAB DCP follow-up note: CM RECEIVED RAFAT NON PASRR AND MAY ENTER LONG TERM FACILITY. CM FAXED TO [facility] AT [phone]. CM WAITING RESULTS OF PRESCREENING AND ADMISSION DETERMINATION FROM [facility] INPATIENT REHAB. CM WAITING ADMISSION DETERMINATION FROM [facility] NURSING AND REHAB. SABRINA Rodriguez DCP- Discharge Planning Updated by [email or web address]: Israel Amaya on 08/29/19 6:[address] Patient Name: JAZMINE BALLARD Encounter No: [id number] : 1945 Primary Insurance: MEDICARE A & B Anticipated DC Date: Planned Disposition: Inpatient Rehab External Planned Provider: [facility] INPATIENT REHAB DCP follow-up note: CM FAXED REFERRAL TO [facility], . CM OBTAINED ORDER FOR INPATIENT REHAB PRESCREENING, WAITING RESULTS OF PRESCREENING AND ADMISSION DETERMINATION FROM [facility] INPATIENT REHAB. CM WAITING ADMISSION DETERMINATION FROM [facility] NURSING AND REHAB. CM WAITING RAFAT SCREENING RESULTS. SABRINA Rodriguez DCP- Discharge Planning Updated by [id number]: Israel Amaya on 08/26/19 3:[address] Patient Name: JAZMINE BALLARD Encounter No: [id number] : 1945 Primary Insurance: MEDICARE A & B Anticipated DC Date: Planned Disposition: Inpatient Rehab External Planned Provider: [facility] INPATIENT REHAB DCP follow-up note: CM MET WITH PT AND DAUGHTER, KAYLIN DALLAS IN ROOM, DISCUSSED ORDER FOR PLACEMENT. PT GAVE PERMISSION TO DISCUSS HER CARE AND TREATMENT WITH DAUGHTER, KAYLIN. PT REPORTS SHE WANTS REHAB AT [facility], BUT WANTS REHAB AT [facility] FIRST HER DR, DR. QUIÑONEZ, IS THE DIRECTOR THERE AND ALWAYS GETS HER IN THERE. CHOICE FOR [facility] SIGNED. PT ASSISTED WITH COMPLETING RAFAT SCREENING FORM. CM OBTAINED SIGNAURE ON RAFAT FROM [facility]. CM FAXED RAFAT SCREENING FORM TO [employer]. PT WANTS REHAB AT [facility] INPATIENT REHAB. CM WAITING INPATIENT REHAB PRESCREENING ORDER AND PHYSICAL THERAPY EVALUATION WHEN PT IS MORE MEDICALLY STABLE AND CLOSER TO HOSPITAL DISCHARGE. SABRINA Rodriguez DCP- Discharge Planning Updated by [email or web address]: Israel Amaya on 08/24/19 4:[address] Patient Name: JAZMINE BALLARD Encounter No: [id number] : 1945 Primary Insurance: MEDICARE A & B Anticipated DC Date: Planned Disposition: External Planned Provider: [facility] NURSING AND REHAB DCP follow-up note: CM RECEIVED CALL FROM SONIDO OF [employer] [facility], THEY WERE TRYING TO ASSIST PT WITH GETTING INTO [facility] FROM HOME PRIOR TO HOSPITAL ADMISSION. PT REQUIRES RAFAT ASSESSMENT AND THAT HAS NOT BEEN DONE. CM TO SEND REFERRAL TO [facility] AND COMPLETE AND SUBMIT FOR RAFAT SCREENING APPROVAL SOON POSSIBLE. ISRAEL AMAYA,CASE MANAGEMENT Israel Amaya DCP- Discharge Planning Updated by [email or web address]: Ary Arellano on 08/24/19 1:[address] CM met with patient to discuss initial discharge planning. Patient is in agreement to proceed with assessment with her daughter, Kaylin Dallas #[phone] present. Patient is alert/oriented, using C-pap at present. Patient is unable to ambulate, reports frequent falls. Daughter will provide information. Patient lives with her daughter, Roslyn Smart #[phone]. Stairs/steps: Ramp. PCP: Dr. Quiñonez. Pharmacy: [facility], patient has been able to obtain all medications. HHS: [facility]. DME: [facility]: Home O2, Nebulizer, walker, w/c, cane, BSC, hospital bed, estevan lift, scooter, shower chair (does not use d/t falls). Patient gives permission to speak with family members/care givers. Emergency contact: Roslyn Smart #[phone]. Total dependent w/ADL's. CM discussed the availability of HH, Rehab, DME services. Patient was recently discharged from in-patient rehab (08/17) to [facility] and per daughter, family picked her up the next morning due to "problems". Daughter states that "[facility]/Rehab will be ACCEPTING patient in approximately 14 days." Recently hospitalized 08/02 and discharged from in-patient rehab 08/17 to [facility]. Denies use of community resources [employer]. Transportation at time of discharge: dependent on place of discharge. CM will follow and assist with further discharge plans PRN. Coverage Notice Reviewer: [id number] - Israel Amaya Notice Issued Date-Time: 08/26/2019 13:50 Notice Type: IM Discharge Notice Notice Delivered To: Family Member Relationship to Patient: Daughter Manager Clinical Services Name: KAYLIN CHAUDHARY Delivery Method: HAND - Hand Delivered Ewa Days: Prior Verbal Notification: Recipient Understood Notice: Yes Recipient Signature: Yes Med Rec Note Co-signed by Attending: Coverage Notice Comment: YOKO Wasserman DP export: 08/29/19 10:30 a Patient Name: JAZMINE BALLARD Page [phone] at 1419 All edits/amendments must be made on the electronic document DICTATION DATE: 08/29/191417 PREPRESS SPECIALIST: MARY 08/29/191417 RPT#: [id number] DC DATE: STATUS: ADM IN [facility] [address] [place] [address] END OF REPORT
--- NOTE | 2019-08-29 14:22 | NUR ---
PT GETTING DISCHRGED TO [facility] TODAY. PT'S STATES TO CALL HER DAUGHTER ASH AND LET HER KNOW. CALLED AND SPOKE WITH ASH AND SHE STATES SHE WILL BRING AN OUTFIT UP HERE.
--- NOTE | 2019-08-29 15:04 | NUR ---
PT AND PT'S WANTING PAIN MEDICATIONS SPECIFICALLY BUT ALL OF HOME MEDS RESTARTED. I STATED TO THEM IF PT HAD CONFUSION WHEN SHE CAME IN THAT'S WHY THEY MAY HAVE HELD PAIN MEDICATIONS BUT TO SPEAK WITH MD WHEN HE ROUNDS. FRANCHESCA COLLINS NURSE MILEAGE CLERK SPOKE WITH PT AND PT'S SPOUSE AND STATED THEM THE SAME THING I DID. THEY VERBALIZED UNDERSTANDING.
--- NOTE | 2019-08-29 15:08 | MORECARE ---
CASE MANAGEMENT DISCHARGE SUMMARY PATIENT: JAZMINE BALLARD UNIT: [id number] ADM DATE: 08/24/19 AGE: 74 : 44 SEX: F ROOM/BED: D.2549 AUTHOR: RAMSES,DOC PHYSICIAN: REFERRING PHYSICIAN: HU NAVARRETE MD DATE OF SERVICE: 08/29/19 Discharge Plan Patient Name: JAZMINE BALLARD Facility: [facility]:[place] : 1945 Planned Disposition: Alf Facility Anticipated Discharge Date: 08/29/19 Discharge Date: Expected LOS: 5 Initial Reviewer: [id number] Initial Review Date: 08/24/2019 Generated: 08/29/19 4:08 pm Comments DCP- Discharge Planning Updated by [id number]: Israel Amaya on 08/29/19 2:[address] Patient Name: JAZMINE BALLARD Encounter No: [id number] : 1945 Primary Insurance: MEDICARE A & B Anticipated DC Date: 08-29-2019 Planned Disposition: Alf Facility External Planned Provider: [facility], MEDICARE REHAB BED DCP follow-up note: CM RECEIVED MESSAGE FROM SANDRA FERRARI, THEY WILL ACCEPT PT TODAY FOR REHAB. CM NOTIFIED HALLE AMAYA, RECEIVED DISCHARGE ORDERS. CM NOTIFIED PT IN ROOM, PT IN AGREEMENT WITH DISCHARGE TO REHAB. CM CALLED PT'S DAUGHTER AT HER REQUEST AND NOTIFIED OF DISCHARGE TODAY TO REHAB. IMPORTANT MESSAGE FROM MEDICARE PROVIDED AND EXPLAINED. CM FAXED DISCHARGE INFORMATION TO [facility] AT [phone]. GASKET NOTCHER NURSE NOTIFIED. CALL NURSE REPORT TO [facility] AT [phone]. [facility] ARRANGING WHEELCHAIR VAN TRANSPORTATION WITH OXYGEN SERVICE. Israel Amaya, CASE MANAGEMENT DCP- Discharge Planning Updated by [id number]: Israel Amaya on 08/29/19 10:[address] Patient Name: JAZMINE BALLARD Encounter No: [id number] : 1945 Primary Insurance: MEDICARE A & B Anticipated DC Date: Planned Disposition: Inpatient Rehab External Planned Provider: [facility] INPATIENT REHAB DCP follow-up note: CM RECEIVED RAF[facility] NON PASRR AND MAY ENTER ASSISTED FACILITY. CM FAXED TO SANDRA FERRARI [facility] AT [phone]. CM WAITING RESULTS OF PRESCREENING AND ADMISSION DETERMINATION FROM [facility] IN[facility]. CM WAITING ADMISSION DETERMINATION FROM [facility]. Israel Amaya CASE MANAGEMENT DCP- Discharge Planning Updated by [id number]: Israel Amaya on 08/29/19 6:[address] Patient Name: JAZMINE BALLARD Encounter No: [id number] : 1945 Primary Insurance: MEDICARE A & B Anticipated DC Date: Planned Disposition: Inpatient Rehab External Planned Provider: [facility] IN[facility] DCP follow-up note: CM FAXED REFERRAL TO [facility]DRA FERR[facility]I [facility], . CM OBTAINED ORDER FOR INPATIENT REHAB PRESCREENING, WAITING RESULTS OF PRESCREENING AND ADMISSION DETERMINATION FROM [facility] IN[facility]. CM WAITING ADMISSION DETERMINATION FROM [facility]. CM WAITING RAFAT SCREENING RESULTS. SABRINA Rodriguez DCP- Discharge Planning Updated by [id number]: Israel Amaya on 08/26/19 3:[address] Patient Name: JAZMINE BALLARD Encounter No: [id number] : 1945 Primary Insurance: MEDICARE A & B Anticipated DC Date: Planned Disposition: Inpatient Rehab External Planned Provider: [facility] IN[facility] DCP follow-up note: CM MET WITH PT AND DAUGHTER, KAYLIN DALLAS IN ROOM, DISCUSSED ORDER FOR PLACEMENT. PT GAVE PERMISSION TO DISCUSS HER CARE AND TREATMENT WITH DAUGHTER, KAYLIN. PT REPORTS SHE WANTS REHAB AT [facility], BUT WANTS REHAB AT [facility] FIRST HER DR, DR. QUIÑONEZ, IS THE DIRECTOR THERE AND ALWAYS GETS HER IN THERE. CHOICE FOR [facility] SIGNED. PT ASSISTED WITH COMPLETING RAFAT SCREENING FORM. CM OBTAINED SIGNAURE ON RAFAT FROM HALLE ZAMAN. CM FAXED RAFAT SCREENING FORM TO [facility] [facility]. PT WANTS REHAB AT [facility] INPATIENT REHAB. CM WAITING INPATIENT REHAB PRESCREENING ORDER AND PHYSICAL THERAPY EVALUATION WHEN PT IS MORE MEDICALLY STABLE AND CLOSER TO HOSPITAL DISCHARGE. Israel Amaya CASE MANAGEMENT DCP- Discharge Planning Updated by [id number]: Israel Amaya on 08/24/19 4:[address] Patient Name: JAZMINE BALLARD Encounter No: [id number] : 1945 Primary Insurance: MEDICARE A & B Anticipated DC Date: Planned Disposition: External Planned Provider: [facility] DCP follow-up note: CM RECEIVED CALL FROM SONIDO OF [facility], THEY WERE TRYING TO ASSIST PT WITH GETTING INTO [facility] FROM HOME PRIOR TO HOSPITAL ADMISSION. PT REQUIRES RAFAT ASSESSMENT AND THAT HAS NOT BEEN DONE. CM TO SEND REFERRAL TO [facility] AND COMPLETE AND SUBMIT FOR [facility] SCREENING APPROVAL SOON POSSIBLE. ISRAEL AMAYA,CASE MANAGEMENT Israel Amaya DCP- Discharge Planning Updated by [id number]: Ary Sealslroy on 08/24/19 1:[address] CM met with patient to discuss initial discharge planning. Patient is in agreement to proceed with assessment with her daughter, Kaylin Dallas #[phone] present. Patient is alert/oriented, using C-pap at present. Patient is unable to ambulate, reports frequent falls. Daughter will provide information. Patient lives with her daughter, Roslyn Smart #[phone]. Stairs/steps: Ramp. PCP: Dr. Quiñonez. Pharmacy: [facility], patient has been able to obtain all medications. HHS: [facility]. DME: [employer]: Home O2, Nebulizer, walker, w/c, cane, BSC, hospital bed, estevan lift, scooter, shower chair (does not use d/t falls). Patient gives permission to speak with family members/care givers. Emergency contact: Roslyn Smart #[phone]. Total dependent w/ADL's. CM discussed the availability of HH, Rehab, DME services. Patient was recently discharged from in-patient rehab (08/17) to [facility] and per daughter, family picked her up the next morning due to "problems". Daughter states that "[facility] will be ACCEPTING patient in approximately 14 days." Recently hospitalized 08/02 and discharged from in-patient rehab 08/17 to [facility]/rehab. 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 Transportation at time of discharge: dependent on place of discharge. CM will follow and assist with further discharge plans PRN. Coverage Notice Reviewer: [id number] Lobo Amaya Notice Issued Date-Time: 08/26/2019 13:50 Notice Type: IM Discharge Notice Notice Delivered To: Family Member Relationship to Patient: Daughter Mix Mill Tender Name: KAYLIN CHAUDHARY Delivery Method: HAND - Hand Delivered Ewa Days: Prior Verbal Notification: Recipient Understood Notice: Yes Recipient Signature: Yes Med Rec Note Co-signed by Attending: Coverage Notice Comment: YOKO Reviewer: [email or web address] Lobo Amaya Notice Issued Date-Time: 08/29/2019 12:25 Notice Type: IM Discharge Notice Notice Delivered To: Patient Relationship to Patient: Mix Mill Tender Name: Delivery Method: HAND - Hand Delivered Ewa Days: Prior Verbal Notification: Recipient Understood Notice: Yes Recipient Signature: Yes Med Rec Note Co-signed by Attending: Coverage Notice Comment: Last DP export: 08/29/19 1:19 p Patient Name: JAZMINE BALLARD Page [phone] at 1508 All edits/amendments must be made on the electronic document DICTATION DATE: 08/29/19 1508 FUNERAL DRIVER: MARY 08/29/19 1508 RPT#: [id number] DC DATE: STATUS: ADM IN [facility] [address] [place] [address] END OF REPORT
--- NOTE | 2019-08-29 17:45 | NUR ---
GAVE REPORT TO MAXIMILIAN MARTINEZ AT [facility].
--- NOTE | 2019-08-29 17:50 | NUR ---
MAXIMILIAN MARTINEZ CALLED AND STATES SHE NEEDS HARD SCRIPTS FOR HYDROCODONE AND CLONAZEPAM BECAUSE THERE PHARMACY IS CLOSED. I CALLED AND SPOKE WT DR. NAIDU AND HE STATES IT WILL HAEV TO WAIT UNTIL TOMORROW. CALLED AND SPOKE WITH MAXIMILIAN MARTINEZ AND SHE STATES OK PT CAN STILL COME SHE JUST WON'T RECEIVE MEDS TONIGHT.
--- NOTE | 2019-08-29 18:05 | NUR ---
RIGHT FA 22G IV DC'D. TELEMETRY DC'D. DISCHARGE INSTRUCTIONS GIVEN TO PT AND PT'S DAUGHTER MARQUISE. PT STATAES SHE CAN'T SIGN DISCHARGE PAPERS BECAUS EOF TREMORS AND WANTS HER DAUGHTER TO SIGN. MARQUISE SINGED PAPERS. PT DRESSED AND X2 PERSON ASSIST INTO WC. PT LEFT WITH [employer] [facility]OR[facility] SCIENTIST IN [place].
== END 2019-08-29 18:15 | DRG 246 ==
LOC: D.ER 11:19 → D.M2 13:12
PROVIDERS: Family Medicine; Internal Medicine Interventional Cardiology; ADMIT Family Medicine; ATTEND Family Medicine
PROC: 4A023N7 Measurement of Cardiac Sampling and Pressure, Left Heart, Percutaneous Approach (ICD-10-PCS; 2019-08-26)
PROC: B2111ZZ Fluoroscopy of Multiple Coronary Arteries using Low Osmolar Contrast (ICD-10-PCS; 2019-08-26)
PROC: B2151ZZ Fluoroscopy of Left Heart using Low Osmolar Contrast (ICD-10-PCS; 2019-08-26)
PROC: 027034Z Dilation of Coronary Artery, One Artery with Drug-eluting Intraluminal Device, Percutaneous Approach (ICD-10-PCS; principal; 2019-08-26 09:24)
PROC: 4A033BC Measurement of Arterial Pressure, Coronary, Percutaneous Approach (ICD-10-PCS; 2019-08-26 09:24)
DX: I21.4 Non-ST elevation (NSTEMI) myocardial infarction (principal); J96.22 Acute and chronic respiratory failure with hypercapnia; I50.33 Acute on chronic diastolic (congestive) heart failure; J44.1 Chronic obstructive pulmonary disease with (acute) exacerbation; Z68.42 Body mass index [BMI] 45.0-49.9, adult; I11.0 Hypertensive heart disease with heart failure; I25.10 Atherosclerotic heart disease of native coronary artery without angina pectoris; I48.0 Paroxysmal atrial fibrillation; E11.9 Type 2 diabetes mellitus without complications; E78.5 Hyperlipidemia, unspecified; D69.6 Thrombocytopenia, unspecified; F41.9 Anxiety disorder, unspecified; E66.01 Morbid (severe) obesity due to excess calories; Z91.81 History of falling; R25.1 Tremor, unspecified

== ENCOUNTER 2019-09-23 18:11 | Emergency (ER) | payer MEDICARE ==
[~2019-09-23] VITALS: Ht 165.1 cm; Wt 113.6 kg
[~2019-09-23 18:11] MED LIST changes: +BETAPACE 120 M120 MG PO; +FUROSEMIDE10 MG/M1; +FUROSEMIDE20 MG PO; +PLAVIX75 MG PO
[2019-09-23 18:18] VITALS: Ht 165.1 cm; Wt 113.6 kg
[2019-09-23] MEDS ORDERED: ELIQUIS5 MG PO (18:54)
[2019-09-23] MEDS ORDERED: BETAPACE 120 M120 MG PO (18:54)
[2019-09-23 19:21] LABS: BASOPHILS 0.2 % (0-2); EOSINOPHILS 2.9 % (0-7); HEMATOCRIT 41.2 % (36.0-48.0); HEMOGLOBIN 12.5 g/dL (12-16); IMMATURE GRANULOCYTES 0.2 % (0-5); LYMPHOCYTES 38.6 % (15-50); MCH 30.6 pg (26.0-34.0); MCHC 30.3 g/dL (31.0-37.0); MCV 100.7 fL (80.0-100.0); MEAN PLATELET VOLUME 10.2 fL (7.4-10.4); MONOCYTES 11.1 % (2-11); PLATELET COUNT 202 10x3/uL (130-400); RBC 4.09 10x6/uL (4.00-5.40); RDW 14.2 % (11.5-14.5); WBC 5.6 10x3/uL (4.8-10.8)
[2019-09-23 19:32] LABS: CALC OSMOLALITY 277 mosm/kg (275-300); CALCIUM 8.9 mg/dL (8.5-10.1); CARBON DIOXIDE 38.1 mmol/L (21.0-32.0); CHLORIDE - SERUM 100 mmol/L (98-107); CREATININE - SERUM 0.9 mg/dL (0.6-1.3); GLUCOSE 93 mg/dL (74-106); POTASSIUM - SERUM 4.3 mmol/L (3.5-5.1); SODIUM 140 mmol/L (136-145); UREA NITROGEN 11 mg/dL (7-18); eGFR NON AFRICAN AMERICAN 65 mL/min (90-120)
[2019-09-23 19:35] LABS: APTT 26.6 SECONDS (22.8-39.4); INR 1.13 (0.85-1.17)
[2019-09-23 19:50] LABS: ALBUMIN 2.7 g/dL (3.4-5.0); ALKALINE PHOSPHATASE 80 U/L (46-116); ALT (SGPT) 33 U/L (10-68); BILIRUBIN - TOTAL 0.26 mg/dL (0.2-1.3); CKMB 0.7 U/L (0.0-3.6); CREATINE KINASE 20 UL (21-215); PROTEIN - SERUM 6.3 g/dL (6.4-8.2); TROPONIN-I < 0.017 ng/mL (0.000-0.060)
[2019-09-23 19:54] LABS: APPEARANCE CLEAR (CLEAR); BILIRUBIN NEGATIVE (NEGATIVE); COLOR YELLOW (YELLOW); GLUCOSE NEGATIVE (NEGATIVE); KETONE NEGATIVE (NEGATIVE); NITRITE NEGATIVE (NEGATIVE); PROTEIN NEGATIVE (NEGATIVE); SPECIFIC GRAVITY 1.015 (1.005-1.020); UROBILINOGEN NORMAL (NORMAL)
[2019-09-23 23:23] VITALS: BP 153/76
== END 2019-09-23 23:23 | disposition home or self-care (01) ==
LOC: D.ER 18:11
PROVIDERS: Family Medicine
DX: F03.90 Unspecified dementia, unspecified severity, without behavioral disturbance, psychotic disturbance, mood disturbance, and anxiety (principal); E03.9 Hypothyroidism, unspecified; E11.9 Type 2 diabetes mellitus without complications; I10 Essential (primary) hypertension; I25.2 Old myocardial infarction; Z99.81 Dependence on supplemental oxygen; Z86.73 Personal history of transient ischemic attack (TIA), and cerebral infarction without residual deficits; Z79.84 Long term (current) use of oral hypoglycemic drugs

== ENCOUNTER 2019-09-25 14:11 | Inpatient (IN) | payer MEDICARE ==
[~2019-09-25] VITALS: Ht 165.1 cm; Wt 113.4 kg
[~2019-09-25 14:11] MED LIST changes: +ELIQUIS5 MG PO
[2019-09-25 14:55] VITALS: BP 110/57
--- NOTE | 2019-09-25 15:42 | NUR ---
ADMIT FROM HOME TO REHAB. FAMILY BROUGHT PT TO HOSPITAL BY OWN CAR. PT IS A MAX X 2-3 PERSON TO STAND AND TRANSFER. SHE IS GROSSLY WEAK. ABLE TO ANSWER QUESTIONS AND FOLLOW COMMANDS. [place] X4. HAS SEVERE TREMORS TO HEAD AND BUE.
[2019-09-25] MEDS ORDERED: KLONOPIN0.5 MG PO ×2 (17:14→17:15)
[2019-09-25] MEDS ORDERED: NITROSTAT0.4 MG SL (17:24)
[2019-09-25] MEDS ORDERED: K-DUR20 MEQ PO (17:25)
[2019-09-25] MEDS ORDERED: ZOFRAN ODT4 MG/UDTAB PO (17:27)
[2019-09-25] MEDS ORDERED: SYNTHROID112 MCG PO (17:27)
[2019-09-25] MEDS ORDERED: UNISOM SLEEP AI25 MG PO (17:28)
[2019-09-25 19:40] VITALS: BP 118/59
--- NOTE | 2019-09-25 19:40 | NUR ---
BEDSIDE REPORT COMPLETE. PT LYING IN BED WATCHING TV. DENIES ANY PAIN. REQUESTED BEDPAN. PLACED ON BEDPAN 200ML CLEAR YELLOW VOID. DENIES ANY OTHER NEEDS. CALMOSEPTINE APPLIED TO BUTTOCKS. VS STABLE. SHIFT ASSESSMENT COMPLETE. CL IN REACH. FALL PRECAUTIONS IN PLACE. WILL CONTINUE TO MONITOR
--- NOTE | 2019-09-26 00:09 | NUR ---
QUIET HOURS. PT LYING IN BED EYES CLOSED RESTING QUIETLY. RR EVEN AND UNLABORED. CL IN REACH
--- NOTE | 2019-09-26 03:56 | NUR ---
PT LYING IN BED EYES CLOSED RESTING. RR EVEN AND UNLABORED. CONTINUES ON 2L VIA NC. CL IN REACH
[2019-09-26 06:15] LABS: BASOPHILS 0.2 % (0-2); EOSINOPHILS 3.4 % (0-7); HEMATOCRIT 42.8 % (36.0-48.0); HEMOGLOBIN 12.8 g/dL (12-16); IMMATURE GRANULOCYTES 0.2 % (0-5); MCH 30.4 pg (26.0-34.0); MCHC 29.9 g/dL (31.0-37.0); MCV 101.7 fL (80.0-100.0); MEAN PLATELET VOLUME 10.1 fL (7.4-10.4); MONOCYTES 11.7 % (2-11); NEUTROPHILS 48.5 % (40-80); PLATELET COUNT 175 10x3/uL (130-400); RBC 4.21 10x6/uL (4.00-5.40); RDW 14.6 % (11.5-14.5); WBC 4.1 10x3/uL (4.8-10.8)
[2019-09-26 06:30] LABS: ANION GAP 6.1 mmol/L (8-16); CALCIUM 8.4 mg/dL (8.5-10.1); CREATININE - SERUM 0.9 mg/dL (0.6-1.3); POTASSIUM - SERUM 3.4 mmol/L (3.5-5.1)
--- NOTE | 2019-09-26 06:31 | NUR ---
PT LYING IN BED EYES CLOSED RESTING COMFORTABLY. RR EVEN AND UNLABORED. CL IN REACH
[2019-09-26 06:32] LABS: CARBON DIOXIDE 40.3 mmol/L (21.0-32.0)
--- NOTE | 2019-09-26 06:32 | NUR ---
LETY FROM LAB CALLED WITH CRITICAL CO2 40.3 READ BACK AND CONFIRMED
[2019-09-26 08:00] VITALS: BP 157/77
--- NOTE | 2019-09-26 08:00 | NUR ---
PATIENT SITTING UP IN BED TO EAT BREAKFAST. ALERT/ORIENT. CALL LIGHT WITHIN REACH. HELPED WITH BED FORMAN. WILL CONTINUE WITH PLAN OF CARE
--- NOTE | 2019-09-26 10:22 | RHP ---
PATIENT: JAZIMNE BALLARD MEDICAL RECORD: [id number] ACCOUNT: [id number] LOCATION:[id number] : [birth year] ADMISSION DATE: 09/25/19 REHABILITATION HISTORY AND PHYSICAL EXAMINATION POST ADMISSION PHYSICIAN EXAMINATION DATE OF ADMISSION: 09/25/2019 ADMITTING DIAGNOSIS: Acute encephalopathy. HISTORY OF PRESENT ILLNESS: The patient was admitted with acute encephalopathy. She is a 74-year-old female patient with past medical history of diabetes, hypothyroidism, CHF, coronary artery disease, recent non-ST segment IL, moderate pulmonary hypertension, chronic hypoxic respiratory failure, obstructive sleep apnea, obesity, anxiety, tremors, degenerative changes in both knees. Family reports a steady decline in her level of function. She had a CT of her thoracic and lumbar spine. No acute findings other than degenerative disease and some changes at L5-S1 where there is moderate left neural foraminal narrowing. The patient is currently deconditioned. She has weakness. She has got debility, impaired mobility, gait disturbance, high fall risk, and self-care deficits. There are all barriers to her discharge home. She lives at home with her family. She was living with her who recently . She was independent with ADLs and mobility prior to this. She is currently set up for max assist with ADLs and mod to max assist for mobility. She and her family planning for return home at her prior level of functioning or possibly better. COMORBIDITIES: Include itndw-yq-lwmtpyg hypoxic and hypercapnic respiratory failure, COPD, hospital-acquired pneumonia, got a history of coronary artery disease, got a history of idiopathic thrombocytopenia, hypothyroidism, obesity, anxiety, depression, tremors, obstructive sleep apnea. PAST MEDICAL HISTORY: Significant for hypothyroidism, CHF. She has got a history of atrial fib, asthma, chronic back pain, menopause, depression. PAST SURGICAL HISTORY: Includes gallbladder surgery, angioplasty. ALLERGIES: IODINE, ASPIRIN, AND ACETAMINOPHEN. CURRENT MEDICATIONS: Include vitamin D 2000 units daily, sotalol 120 mg b.i.d., potassium 20 mEq daily, furosemide 20 mg daily, Eliquis 500 mg b.i.d., Plavix 75 mg daily, Celexa 40 mg daily. She is on Synthroid 112 mcg daily. She is on [place] 10/325 one tab at bedtime p.r.n. She is on Unasyn as needed at bedtime, clonazepam 0.5 mg b.i.d. She is on metformin 500 mg b.i.d. with meals, MiraLax 17 grams in 8 ounces of water daily, primidone 250 t.i.d., Zofran ODT 4 mg q.4 hours p.r.n. nausea and vomiting, she is on Nitrostat 0.4 mg q.5 minutes p.r.n. chest pain, and BuSpar 15 mg t.i.d. p.r.n. HABITS: No alcohol or tobacco use. FAMILY HISTORY: Noncontributory. SOCIAL HISTORY: The patient hopes to return back to her prior level of functioning. REVIEW OF SYSTEMS: HISTORY AND PHYSICAL [id number] JAZMINE BALLARD GENERAL: Does complain of weakness and fatigue. HEENT: Denies cold, cough, or congestion. CARDIOVASCULAR: Denies chest pain. PHYSICAL EXAMINATION: VITAL SIGNS: Stable, afebrile. GENERAL: A morbidly obese female, in no acute distress, alert upon exam. HEENT: Normocephalic and atraumatic. Mucosa moist. NECK: Supple. No lymphadenopathy. LUNGS: Clear in upper argueta. HEART: Irregular rate and rhythm. ABDOMEN: Soft, benign, and nondistended. Positive bowel sounds times 4. EXTREMITIES: No clubbing, cyanosis or edema. NEUROLOGIC: She is noted to have a 1-2/5 muscular strength in her proximal muscles of her thighs. LABORATORY DATA: White count is 4.1, H&H of 12 and 42, and platelet count is noted to be 175. Her sodium is 143, potassium 3.4, BUN and creatinine of 13 and 0.9, and blood sugar is noted to be 104. Her CO2 was elevated at 40.3. ASSESSMENT: This is a 74-year-old female patient admitted to rehab with a working diagnosis of encephalopathy, probably secondary to CO2 narcosis at times. The patient has potential to make improvement. We instituted the following multidisciplinary therapies including, but not limited to physical, occupational, respiratory, speech, nutritional services, prosthetics and orthotics. Given her complex medical condition and risk for more complications, rehabilitation services cannot be provided at a low level of care such a skilled nurse facility. PLAN: 1. Ad[facility] for intensive inpatient therapy to include the following disciplines: A. Physical therapy to improve gait, all transfer skills and bed mobility to a modified independent level. B. Occupational therapy to a modified independent level. C. Case management to assist with discharge planning and placement options. D. Nutrition to assist with nutritional needs. E. Rehabilitation nursing to assist in monitoring the patient's underlying medical conditions and to assist with any type of bowel or bladder management. 2. The patient's current medication and medical care will be continued. 3. The patient will be placed on standard fall precautions. 4. The patient's estimated length of stay is approximately 7-10 days. 5. We will discuss this patient during care team staff meeting this week. I am going to go ahead and check an A1c on her and also vitamin D levels and we will see again in the a.m. to discuss with care team. TRANSINT:[id number] Voice Confirmation ID: [id number] DOCUMENT ID: [id number] YVONNE notes whether there has been none or any medical/functional change since admission: - YVONNE attests patient continues to be appropriate for IRF: HISTORY AND PHYSICAL [id number] JAZMINE BALLARD JOHN SCOTT MD at 1022 CC: [id number] DICTATION DATE: 09/26/19 0831 OVEN STRIPPER: 09/26/19 0947 ADM IN [facility] [address] [id number]
--- NOTE | 2019-09-26 10:43 | NUR ---
OCCUPATIONAL THERAPIST WORKING WITH PATIENT IN SHOWER.
[2019-09-26 13:55] VITALS: Ht 165.1 cm; Wt 113.4 kg
--- NOTE | 2019-09-26 14:02 | NUR ---
PATIENT HELPED ONTO TOILET MAX ASST OF THREE. HELPED BACK TO BED WITH MAX ASST OF THREE. PRN PAIN MEDICATION GIVEN FOR BILATERAL KNEE PAIN PER PATIENT REQUEST
--- NOTE | 2019-09-26 14:34 | NUR ---
PATIENT ADMITTED TO REHAB FROM HOME. PCP IS DR. HAY. DME AT HOME IS A NEBULIZER, O2, WALKER, WHEELCHAIR AMD A BSC. WILL CONTINUE TO FOLLOW WITH PATIENT. DISCHARGE PLANS ARE UNKNOWN AT THIS TIME.
--- NOTE | 2019-09-26 19:07 | NUR ---
BEDSIDE REPORT COMPLETE. PT LYING IN BED AWAKE AND ALERT. HOB 30 DEGREES. NO SIGNS OF ACUTE DISTRESS NOTED. CONTINUES ON 2L VIA NC. CL IN REACH. FALL PRECAUTIONS IN PLACE. WILL CONTINUE TO MONITOR
[2019-09-26 21:14] VITALS: BP 134/67
--- NOTE | 2019-09-27 00:39 | NUR ---
QUIET HOURS. PT LYING IN BED EYES CLOSED RESTING QUIETLY. RR EVEN AND UNLABORED. CL IN REACH
--- NOTE | 2019-09-27 03:48 | NUR ---
PT LYING IN BED EYES CLOSED RESTING. RR EVEN AND UNLABORED. CL IN REACH
--- NOTE | 2019-09-27 05:49 | NUR ---
PT LYING IN BED EYES CLOSED RESTING COMFORTABLY. RR EVEN AND UNLABORED. CL IN REACH
--- NOTE | 2019-09-27 07:34 | NUR ---
PT RESTING IN BED WITH EYES OPEN CALL LIGHT IN REACH WILL MONITER
--- NOTE | 2019-09-27 13:19 | NUR ---
CARE TEAM MEETING: PATIENT IS NEW TO UNIT AND WILL BE RA AT NEXT MEETING. WILL CONTINUE TO FOLLOW WITH PATIENT.
--- NOTE | 2019-09-27 18:14 | NUR ---
PT RESTING IN BED WITH EYES OPEN CALL LIGHT IN REACH WILL MONITER
--- NOTE | 2019-09-27 19:48 | NUR ---
PATIENT RECEIVED SITTING UP IN BED. FAMILY IN ROOM. ASSESSMENT & VITAL SIGNS DONE. BED LOW. ALARM ON. CALL LIGHT WITHIN REACH. WILL CONTINUE TO MONITOR.
[2019-09-27 21:13] VITALS: BP 126/58
--- NOTE | 2019-09-28 00:22 | NUR ---
I have reviewed this patient and I concur with the Shift Assessment completed by the Licensed Practical Nurse today this shift.
--- NOTE | 2019-09-28 04:24 | NUR ---
PATIENT HAD INCONTINENCE OF SOFT STOOL & URINE. PATIENT CLEANED,BEDDING CHANGED. CALL LIGHT WITHIN REACH. WILL CONTINUE TO MONITOR.
[2019-09-28 06:15] LABS: BASOPHILS 0.2 % (0-2); EOSINOPHILS 2.1 % (0-7); HEMATOCRIT 39.6 % (36.0-48.0); HEMOGLOBIN 11.9 g/dL (12-16); IMMATURE GRANULOCYTES 0.4 % (0-5); LYMPHOCYTES 27.7 % (15-50); MCH 30.3 pg (26.0-34.0); MCHC 30.1 g/dL (31.0-37.0); MCV 100.8 fL (80.0-100.0); MEAN PLATELET VOLUME 10.5 fL (7.4-10.4); MONOCYTES 11.2 % (2-11); NEUTROPHILS 58.4 % (40-80); PLATELET COUNT 157 10x3/uL (130-400); RBC 3.93 10x6/uL (4.00-5.40); RDW 14.3 % (11.5-14.5); WBC 4.8 10x3/uL (4.8-10.8)
[2019-09-28 06:58] LABS: CALC OSMOLALITY 284 mosm/kg (275-300); CALCIUM 8.8 mg/dL (8.5-10.1); CARBON DIOXIDE 39.6 mmol/L (21.0-32.0); CHLORIDE - SERUM 101 mmol/L (98-107); CREATININE - SERUM 0.7 mg/dL (0.6-1.3); GLUCOSE 103 mg/dL (74-106); POTASSIUM - SERUM 3.4 mmol/L (3.5-5.1); SODIUM 143 mmol/L (136-145); UREA NITROGEN 13 mg/dL (7-18); eGFR NON AFRICAN AMERICAN 86 mL/min (90-120)
[2019-09-28 08:00] VITALS: BP 128/40
--- NOTE | 2019-09-28 11:27 | NUR ---
PT RESTING IN BED WITH EYES OPEN CALL LIGHT IN REACH WILL MONITER
--- NOTE | 2019-09-28 19:57 | NUR ---
REPORT RECIEVED AND ROUNDING COMPLETE. PATIENT LAYING IN LOW FOWLERS IN HER BED, PATIENT STATES SHE HAS NO NEEDS AT THIS TIME. JOSELUIS HAS 02 VIA NASAL CANNULA AT 2L. PATIENT SHOWS NO S/SX OF DISTRESS AT THIS TIME. CALL LIGHT WITHIN REACH AND BED IN LOWEST LOCKED POSITION. PATIENT HAS NO PIV.
[2019-09-28 20:14] VITALS: BP 127/60
--- NOTE | 2019-09-29 00:26 | NUR ---
I have reviewed this patient and I concur with the Shift Assessment completed by the Licensed Practical Nurse today this shift.
--- NOTE | 2019-09-29 07:37 | NUR ---
REPORT RECIEVED. PT RESTING QUIETLY WITH EYES CLOSED. RISE AND FALL OF CHEST NOTED. RR EVEN AND UNLABORED ON 2L NC. BED LOCKED AND IN LOWEST POSITION, CALL LIGHT WITHIN REACH. WILL CTM
[2019-09-29 08:00] VITALS: BP 146/68
--- NOTE | 2019-09-29 15:05 | NUR ---
Nutrition Follow-up: Diet: Diabetic, chopped meats PO intake: ~79% average x last 6 meals. Reports that appetite is "okay." Last BM: 09/28/19. WT: 250# (09/26/19) Meds noted: lasix, metformin. Labs noted: K 3.4, A1c 5.5%. Skin: reddened area to buttocks per nursing skin assessment. Continue current diet. Encouraged PO intake. RD following.
--- NOTE | 2019-09-29 16:12 | NUR ---
PATIENT BACK IN BED AFTER THERAPY. MAX ASST OF TWO FROM WHEELCHAIR TO BED. FAMILY IN ROOM. VISITING WITH PATIENT
--- NOTE | 2019-09-29 19:58 | NUR ---
PATIENT RECEIVED SITTING UP IN BED. ASSESSMENT & VITAL SIGNS DONE. NO C/O PAIN OR DISTRESS. BED LOW. ALARM ON. CALL LIGHT WITHIN REACH. WILL CONTINUE TO MONITOR.
[2019-09-29 20:24] VITALS: BP 135/67
--- NOTE | 2019-09-29 21:33 | NUR ---
PATIENT C/O RIGHT KNEE PAIN. BENGAY APPLIED. WILL CONTINUE TO MONITOR.
--- NOTE | 2019-09-29 22:00 | NUR ---
PATIENT RIGHT KNEE PAIN LEVEL ZERO AFTER BENGAY APPLIED. CALL LIGHT WITHIN REACH. WILL CONTINUE TO MONITOR.
--- NOTE | 2019-09-30 00:08 | NUR ---
I have reviewed this patient and I concur with the Shift Assessment completed by the Licensed Practical Nurse today this shift.
--- NOTE | 2019-09-30 04:17 | NUR ---
PATIENT EYES CLOSED. RESPIRATIONS 18 & EVEN. BED LOW. ALARM ON. CALL LIGHT WITHIN REACH. WILL CONTINUE TO MONITOR.
[2019-09-30 07:21] VITALS: BP 135/62
--- NOTE | 2019-09-30 17:02 | NUR ---
PT RESTING IN BED WITH EYES OPEN CALL LIGHT IN REACH NO PROBLEMS WILL MONITER
--- NOTE | 2019-09-30 17:05 | NUR ---
PT RESTING IN BED WITH EYES OPEN CALL JESSICA FONTAINE WILL MONITER
[2019-09-30 19:20] VITALS: BP 138/66
--- NOTE | 2019-09-30 19:20 | NUR ---
BEDSIDE REPORT COMPLETE. PT LYING IN BED VISITING WITH FAMILY. ALERT AND ORIENTED X4. DENIES ANY NEEDS OR PAIN. NO SIGNS OF ACUTE DISTRESS NOTED. VS STABLE. SHIFT ASSESSMENT COMPLETE. CL IN REACH. FALL PRECAUTIONS IN PLACE. WILL CONTINUE TO MONITOR
--- NOTE | 2019-10-01 00:15 | NUR ---
QUIET HOURS. PT LYING IN BED EYES CLOSED RESTING QUIETLY. BRIEF CLEAN AND DRY. RR EVEN AND UNLABORED. CL IN REACH
--- NOTE | 2019-10-01 03:48 | NUR ---
ASSISTED PT ON BEDPAN.
[2019-10-01 06:34] LABS: BASOPHILS 0.2 % (0-2); EOSINOPHILS 2.3 % (0-7); HEMATOCRIT 38.6 % (36.0-48.0); HEMOGLOBIN 11.7 g/dL (12-16); IMMATURE GRANULOCYTES 0.2 % (0-5); LYMPHOCYTES 35.4 % (15-50); MCH 30.5 pg (26.0-34.0); MCHC 30.3 g/dL (31.0-37.0); MCV 100.8 fL (80.0-100.0); MEAN PLATELET VOLUME 10.4 fL (7.4-10.4); MONOCYTES 11.6 % (2-11); NEUTROPHILS 50.3 % (40-80); PLATELET COUNT 127 10x3/uL (130-400); RBC 3.83 10x6/uL (4.00-5.40); RDW 14.4 % (11.5-14.5); WBC 4.4 10x3/uL (4.8-10.8)
[2019-10-01 06:53] LABS: CALC OSMOLALITY 282 mosm/kg (275-300); CALCIUM 8.8 mg/dL (8.5-10.1); CARBON DIOXIDE 38.6 mmol/L (21.0-32.0); CHLORIDE - SERUM 100 mmol/L (98-107); CREATININE - SERUM 0.7 mg/dL (0.6-1.3); GLUCOSE 104 mg/dL (74-106); POTASSIUM - SERUM 3.5 mmol/L (3.5-5.1); SODIUM 142 mmol/L (136-145); UREA NITROGEN 12 mg/dL (7-18); eGFR NON AFRICAN AMERICAN 86 mL/min (90-120)
[2019-10-01 08:00] VITALS: BP 142/68
--- NOTE | 2019-10-01 08:00 | NUR ---
RESTING QUIETLY IN BED. DECLINED TO EAT JUST YET WANTING TO REST MORE. CALL LIGHT IN REACH
--- NOTE | 2019-10-01 14:15 | NUR ---
LAYING IN BED EYES OPEN, CALL LIGHT IN REACH. HAS BEEN INCONT OF URINE TODAY. USED BEDPAN FOR BM. IS VERY WEAK. TREMORS TO HEAD AND BUE NOTED.
[2019-10-01 19:30] VITALS: BP 133/60
--- NOTE | 2019-10-01 19:30 | NUR ---
BEDSIDE REPORT COMPLETE. PT LYING IN BED WATCHING TV. ALERT AND ORIENTED X3. DENIES ANY NEEDS OR PAIN. NO SIGNS OF ACUTE DISTRESS NOTED. VS STABLE. SHIFT ASSESSMENT COMPLETE. CL IN REACH. FALL PRECAUTIONS IN PLACE. WILL CONTINUE TO MONITOR
--- NOTE | 2019-10-01 23:21 | NUR ---
QUIET HOURS. PT LYING IN BED EYES CLOSED RESTING COMFORTABLY. RR EVEN AND UNLABORED. CONTINUES ON 2L VIA NC. CL IN REACH
--- NOTE | 2019-10-02 01:52 | NUR ---
PT LYING IN BED EYES CLOSED RESTING COMFORTABLY. RR EVEN AND UNLABORED. CL IN REACH
--- NOTE | 2019-10-02 05:33 | NUR ---
PT LYING IN BED EYES CLOSED RESTING COMFORTABLY. RR EVEN AND UNLABORED. CL IN REACH
[2019-10-02 08:00] VITALS: BP 116/59
--- NOTE | 2019-10-02 09:15 | NUR ---
FED SELF BREAKFAST. TREMORS SEEM TO BE THE WORST IN THE MORNING TO HEAD AND BUE. INCONT OF URINE THIS AM. IS MAX ASST WITH ALL TRANSFERS AND ROLLING OVER. SHE DOES NOT DO PROM EXERCISES IN BED ON HER OWN. WEARS OXYGEN 2LNC. CALL LIGHT IN REACH
--- NOTE | 2019-10-02 17:52 | NUR ---
SITTING UP IN BED FINISHING SUPPER. FAMILY IN ROOM WITH PT. SHE IS OFTEN INCONT OF URINE. HAS BEEN CONT OF BOWEL TODAY. HAS SHOWN SIGNS OF SHORT TERM MEMORY LOSS TODAY, NOT REMEMBERING HER OWN DAUGHTER'S NAME TODAY. SHE COULD NOT RECALL CALLING FOR NURSE WITH IN 5 MINUTES OF USING CALL BUTTON. CALL LIGHT IN REACH
[2019-10-02 19:00] VITALS: BP 125/63
--- NOTE | 2019-10-02 19:00 | NUR ---
BEDSIDE REPORT COMPLETE. PT LYING IN BED WATCHING TV. DENIES ANY NEEDS OR PAIN. NO SIGNS OF ACUTE DISTRESS NOTED. VS STABLE. SHIFT ASSESSMENT COMPLETE. CL IN REACH. FALL PRECAUTIONS IN PLACE. WILL CONTINUE TO MONITOR
--- NOTE | 2019-10-02 23:37 | NUR ---
QUIET HOURS. PT LYING IN BED EYES CLOSED RESTING. RR EVEN AND UNLABORED. CONTINUES ON 2L VIA NC. CL IN REACH
--- NOTE | 2019-10-03 04:19 | NUR ---
PT LYING IN BED EYES CLOSED RESTING. RR EVEN AND UNLABORED. CL IN REACH
[2019-10-03 07:59] VITALS: BP 141/71
[2019-10-03 09:17] LABS: BASOPHILS 0.4 % (0-2); EOSINOPHILS 2.6 % (0-7); HEMATOCRIT 40.2 % (36.0-48.0); HEMOGLOBIN 12.3 g/dL (12-16); IMMATURE GRANULOCYTES 0.4 % (0-5); LYMPHOCYTES 29.8 % (15-50); MCH 30.8 pg (26.0-34.0); MCHC 30.6 g/dL (31.0-37.0); MCV 100.8 fL (80.0-100.0); MEAN PLATELET VOLUME 10.9 fL (7.4-10.4); MONOCYTES 7.9 % (2-11); NEUTROPHILS 58.9 % (40-80); PLATELET COUNT 144 10x3/uL (130-400); RBC 3.99 10x6/uL (4.00-5.40); RDW 14.3 % (11.5-14.5); WBC 4.9 10x3/uL (4.8-10.8)
[2019-10-03 09:29] LABS: ANION GAP 4.2 mmol/L (8-16); CREATININE - SERUM 0.8 mg/dL (0.6-1.3); POTASSIUM - SERUM 3.9 mmol/L (3.5-5.1)
[2019-10-03 09:34] LABS: CARBON DIOXIDE 41.7 mmol/L (21.0-32.0)
--- NOTE | 2019-10-03 17:46 | NUR ---
FAMILY VISITING. SITTING UP IN BED EATING SUPPER.
[2019-10-03 18:40] VITALS: BP 118/50
--- NOTE | 2019-10-03 18:40 | NUR ---
BEDSIDE REPORT COMPLETE. PT SITTING UP IN BED WATCHING TV WITH HER DAUGHTER. DENIES ANY NEEDS OR PAIN. NO SIGNS OF ACUTE DISTRESS NOTED. CONTINUES ON 2L VIA NC. VS STABLE. SHIFT ASSESSMENT COMPLETE. CL IN REACH. FALL PRECAUTIONS IN PLACE. WILL CONTINUE TO MONITOR
--- NOTE | 2019-10-04 00:18 | NUR ---
QUIET HOURS. PT LYING IN BED EYES CLOSED RESTING COMFORTABLY. RR EVEN AND UNLABORED. CONTINUES ON 2L VIA NC. CL IN REACH
--- NOTE | 2019-10-04 03:32 | NUR ---
PT LYING IN BED EYES CLOSED RESTING COMFORTABLY. RR EVEN AND UNLABORED. CL IN REACH
--- NOTE | 2019-10-04 06:28 | NUR ---
PT LYING IN BED EYES CLOSED RESTING COMFORTABLY. LINENS CLEAN AND DRY. NO SIGNS OF ACUTE DISTRESS NOTED. CONTINUES ON 2L VIA NC. CL IN REACH
[2019-10-04 07:45] VITALS: BP 137/56
--- NOTE | 2019-10-04 08:00 | NUR ---
SHIFT ASSMT COMPLETED.
--- NOTE | 2019-10-04 19:40 | NUR ---
PATIENT RECEIVED SITTING UP IN BED. DAUGHTER AT BEDSIDE. VITAL SIGNS & ASSESSMENT DONE. BED LOW. ALARM ON. CALL LIGHT WITHIN REACH. WILL CONTINUE TO MONITOR.
[2019-10-04 20:00] VITALS: BP 116/53
--- NOTE | 2019-10-05 02:33 | NUR ---
I have reviewed this patient and I concur with the Shift Assessment completed by the Licensed Practical Nurse today this shift.
--- NOTE | 2019-10-05 02:37 | NUR ---
PATIENT EYES CLOSED. RESPIRATIONS 18 & EVEN. BED LOW. ALARM ON. CALL LIGHT WITHIN REACH. WILL CONTINUE TO MONITOR.
[2019-10-05 08:00] VITALS: BP 131/58
--- NOTE | 2019-10-05 08:00 | NUR ---
SHIFT ASSMT COMPLETED.
--- NOTE | 2019-10-05 09:26 | NUR ---
NUTRITION F/U PT TOLERATING DIABETIC DIET WITH CHOPPED MEATS. ~75% INTAKE BREAKFAST THIS AM. RECENT BM RECORDED. WILL CONTINUE TO PROVIDE DIET, MONITOR PO INTAKE. RD FOLLOWING
--- NOTE | 2019-10-05 16:55 | NUR ---
CARE TEAM MEETING: PATIENT TENTIVE DSICHARGE DATE IS 10/13/2019. DISCHARGE PLANS ARE FOR HER TO RETURN TO [facility]. WILL CONTINUE TO FOLLOW WITH PATIENT.
--- NOTE | 2019-10-05 19:20 | NUR ---
PT SITTING UP IN BED WATCHING TV. CL IN REACH. FAMILY IN ROOM. DENIES NEEDS AT THIS TIME. BED IN LOW SIDE RAILS X2. LUNGS CLEAR. BOWEL ACTIVE X4. PT ON 2L OF O2 VIA NC. RESP EVEN AND UNLABORED. INCONT AT TIMES. FORGETFUL WELL. WILL CONTINUE TO MONITOR. BED ALARM ON.
[2019-10-05 20:39] VITALS: BP 123/62
--- NOTE | 2019-10-06 00:47 | NUR ---
I have reviewed this patient and I concur with the Shift Assessment completed by the Licensed Practical Nurse today this shift.
[2019-10-06 08:00] VITALS: BP 118/57
--- NOTE | 2019-10-06 15:39 | NUR ---
JUST FINISHED BED BATH. PT IS A TOTAL ASST PT. HER SKIN IS INTACT WITH NO BREAKDOWN NOTED. SHE IS INCONT AT TIMES OF BOWEL AND BLADDER. SHE HAS SEVERE TREMORS TO HEAD AND BUE. OXYGEN 2LNC IS USED AT ALL TIMES. SHE CAN ASST TO ROLL FROM SIDE TO SIDE AND REQUIRES X2 PERSON TO STAND. CALL LIGHT IN REACH
[2019-10-06 19:42] VITALS: BP 115/74
--- NOTE | 2019-10-06 23:00 | NUR ---
PATIENT RECEIVED SITTING UP IN BED WATCHING TV. ASSESSMENT & VITAL SIGNS DONE. NO C/O PAIN OR DISTRESS. BED LOW. ALARM ON. CALL LIGHT WITHIN REACH. WILL CONTINUE TO MONITOR.
--- NOTE | 2019-10-07 00:26 | NUR ---
I have reviewed this patient and I concur with the Shift Assessment completed by the Licensed Practical Nurse today this shift.
--- NOTE | 2019-10-07 02:33 | NUR ---
PATIENT EYES CLOSED. RESPIRATIONS 18 & EVEN. BED LOW. ALARM ON. CALL LIGHT WITHIN REACH. WILL CONTINUE TO MONITOR.
[2019-10-07 08:07] VITALS: BP 139/70
[2019-10-07 08:27] LABS: BASOPHILS 0.2 % (0-2); EOSINOPHILS 3.2 % (0-7); HEMATOCRIT 38.4 % (36.0-48.0); HEMOGLOBIN 11.8 g/dL (12-16); IMMATURE GRANULOCYTES 0.2 % (0-5); LYMPHOCYTES 31.2 % (15-50); MCH 30.6 pg (26.0-34.0); MCHC 30.7 g/dL (31.0-37.0); MCV 99.7 fL (80.0-100.0); MEAN PLATELET VOLUME 10.9 fL (7.4-10.4); MONOCYTES 13.5 % (2-11); NEUTROPHILS 51.7 % (40-80); PLATELET COUNT 157 10x3/uL (130-400); RBC 3.85 10x6/uL (4.00-5.40); RDW 14.3 % (11.5-14.5); WBC 4.1 10x3/uL (4.8-10.8)
[2019-10-07 08:38] LABS: ANION GAP 5.1 mmol/L (8-16); CALCIUM 9.1 mg/dL (8.5-10.1); CREATININE - SERUM 0.8 mg/dL (0.6-1.3); POTASSIUM - SERUM 4.2 mmol/L (3.5-5.1)
[2019-10-07 08:42] LABS: CARBON DIOXIDE 41.1 mmol/L (21.0-32.0)
--- NOTE | 2019-10-07 12:49 | NUR ---
NUTRITION FOLLOW UP INTERVIEW: Met with patient this morning. Patient stated her appetite has been improving. She denied N/V/D/C. She denied need for nutritional supplements. DIET: Diabetic Diet w/ Chopped Meats and Finger Foods PO INTAKE: 30% avg x 9 meals WT: 249 lbs (No significant wt change) BM: x 1 on 10/05 SIG MEDS: KCl, Lasix, Vit D, Metformin SIG LABS: CO2- 41.1 (CH), Folate-3.7(L) WILL CONTINUE TO MONITOR CLOSELY [facility] CLINICAL DIETITIAN FOLLOWING
--- NOTE | 2019-10-07 13:20 | NUR ---
MAX ASST X2-3 TO GET FROM WC TO TOILET TO WC AGAIN. TAKES APPX 20 FOR EACH EPISODE OF TRANSFERS BACK AND FORTH. SHE DOES NOT STEP WITH FEET SHE JUST TURNS HER BODY. SHE IS SLOW TO FOLLOW SIMPLE COMMANDS. HER MEMORY SEEMS TO BE WORSE AND RECALL IS INACCURATE.
--- NOTE | 2019-10-07 19:30 | NUR ---
PT IS RESTING QUIETLY IN BED WITH EYES CLOSED. NO ACUTE DISTRESS NOTED.
[2019-10-07 20:34] VITALS: BP 130/56
--- NOTE | 2019-10-08 00:29 | NUR ---
I have reviewed this patient and I concur with the Shift Assessment completed by the Licensed Practical Nurse today this shift.
--- NOTE | 2019-10-08 03:07 | NUR ---
RESTING IN BED WITH EYES CLOSED.
--- NOTE | 2019-10-08 05:47 | NUR ---
PT IS RESTING IN BED WITH EYES CLOSED. AWOKE EASILY TO VERBAL STIMULI. TOLERATED AM MED WITHOUT DIFFICULTY. INC. CARE GIVEN. NO FURTHER NEEDS VOICED.
[2019-10-08 08:00] VITALS: BP 110/63
--- NOTE | 2019-10-08 08:00 | NUR ---
SHIFT ASSMT COMPLETED.
[2019-10-08 19:43] VITALS: BP 141/79
--- NOTE | 2019-10-08 20:07 | NUR ---
PT IS RESTING IN BED WITH EYES CLOSED. AWOKE EASILY TO VERBAL STIMULI. PT IS ALERT TO NAME AND TIME. CONFUSED TO PLACE AND SITUATION. NO NEEDS VOICED. O2 IS ON AT 2LPM PER NC. NO SOB NOTED. SR'S ARE UP X3 IN BED. CALL LIGHT AND BEDSIDE TABLE ARE WITHIN EASY REACH.
--- NOTE | 2019-10-08 23:37 | NUR ---
I have reviewed this patient and I concur with the Shift Assessment completed by the Licensed Practical Nurse today this shift.
--- NOTE | 2019-10-09 03:25 | NUR ---
PT RESTING IN BED WITH EYES CLOSED. NO DISTRESS NOTED.
--- NOTE | 2019-10-09 05:57 | NUR ---
PT RESTING IN BED WITH EYES CLOSED. NO DISTRESS NOTED.
--- NOTE | 2019-10-09 08:00 | NUR ---
SHIFT ASSMT COMPLETED.BREAKFAST GIVEN.CL IN REACH.
[2019-10-09 08:15] VITALS: BP 129/67
--- NOTE | 2019-10-09 12:00 | NUR ---
INCONT OF URINE AND BM X1 TODAY.CLEANED AND POSITIONED UP IN BED.LUNCH GIVEN.
--- NOTE | 2019-10-09 19:32 | NUR ---
PT IS RESTING IN BED VISITING WITH FAMILY MEMBERS. ALERT AND ORIENTED X 3. DENIES ACUTE DISCOMFORT AT THIS TIME. NO NEEDS VOICED. VSS. O2 IS ON @ 2LPM PER NCA. NO SOB NOTED. SR'S ARE UP X 3 IN BED. CALL LIGHT AND BEDSIDE TABLE ARE WITHIN EASY REACH.
--- NOTE | 2019-10-09 22:01 | NUR ---
RESTING QUIETLY IN BED WITH EYES CLOSED.
--- NOTE | 2019-10-09 23:20 | NUR ---
I have reviewed this patient and I concur with the Shift Assessment completed by the Licensed Practical Nurse today this shift.
--- NOTE | 2019-10-10 04:15 | NUR ---
RESTING IN BED WITH EYES CLOSED.
[2019-10-10 06:49] LABS: BASOPHILS 0.4 % (0-2); EOSINOPHILS 3.9 % (0-7); HEMATOCRIT 38.5 % (36.0-48.0); HEMOGLOBIN 11.7 g/dL (12-16); LYMPHOCYTES 34.7 % (15-50); MCH 30.5 pg (26.0-34.0); MCHC 30.4 g/dL (31.0-37.0); MCV 100.3 fL (80.0-100.0); MEAN PLATELET VOLUME 10.4 fL (7.4-10.4); MONOCYTES 11.6 % (2-11); NEUTROPHILS 49.4 % (40-80); RBC 3.84 10x6/uL (4.00-5.40); RDW 14.3 % (11.5-14.5); WBC 5.2 10x3/uL (4.8-10.8)
[2019-10-10 06:52] LABS: PLATELET COUNT 203 10x3/uL (130-400)
[2019-10-10 07:19] LABS: ANION GAP 5.1 mmol/L (8-16); CARBON DIOXIDE 39.8 mmol/L (21.0-32.0); CREATININE - SERUM 0.8 mg/dL (0.6-1.3); POTASSIUM - SERUM 3.9 mmol/L (3.5-5.1)
--- NOTE | 2019-10-10 11:54 | NUR ---
INCONT OF STOOL AND URINE. MAX ASST WITH ALL TASKS. SEVERE TREMORS TO HEAD AND BUE. CALL LIGHT IN REACH
--- NOTE | 2019-10-10 13:05 | NUR ---
MAX ASST TO TRANSFER TO TOILET. LOOSE STOOLS.
--- NOTE | 2019-10-10 14:42 | NUR ---
Nutrition Follow-up: Diet: Diabetic PO intake: ~35% average x last 12 meals. Reports that per appetite is "okay." She appeared to have eaten about half of her lunch tray today. She does not want Glucerna on meal trays. Last BM: 10/09/19 x 2. WT: 250# (09/26/19), no new wt Meds noted: lasix, metformin. Labs reviewed. Continue Diabetic diet. Encouraged PO intake. RD following.
--- NOTE | 2019-10-10 19:30 | NUR ---
PT IS RESTING IN BED WITH EYES OPEN. ALERT AND ORIENTED X 3. DENIES ACUTE DISCOMFORT AT THIS TIME. ASSISTED TO USE BEDPAN X 2 WITH NO RESULTS. FAMILY MEMBERS ARE AT THE BEDSIDE. O2 IS ON @ 2LPM PER NC. NO SOB NOTED. SR'S ARE UP X 3 IN BED. CALL LIGHT AND BEDSIDE TABLE ARE WITHIN EASY REACH.
--- NOTE | 2019-10-10 22:08 | NUR ---
PT IS RESTING QUIETLY IN BED WITH EYES CLOSED. RESPS ARE EVEN AND UNLABORED. NO ACUTE DISTRESS NOTED.
--- NOTE | 2019-10-11 02:00 | NUR ---
RESTING IN BED WITH EYES CLOSED.
--- NOTE | 2019-10-11 04:14 | NUR ---
I have reviewed this patient and I concur with the Shift Assessment completed by the Licensed Practical Nurse today this shift.
[2019-10-11 08:18] VITALS: BP 144/75
--- NOTE | 2019-10-11 09:48 | NUR ---
REFERRAL HAS BEEN FAXED [facility] ADMISSION. WILL CONTINUE TO FOLLOW WITH PATIENT.
--- NOTE | 2019-10-11 13:10 | NUR ---
SITTING UP IN BED. HAS TO BE FED MEALS DUE TO TREMORS. SLOW TO FOLLOW COMMANDS AND ANSWER QUESTIONS. INCONT OF BOWEL AND BLADDER. CALL LIGHT IN REACH
--- NOTE | 2019-10-11 18:37 | NUR ---
RESTING QUIETLY IN BED. CALL LIGHT IN REACH
--- NOTE | 2019-10-11 20:00 | NUR ---
PATIENT RECEIVED SITTING UP IN BED SLEEPING. PATIENT BED LOW. ALARM ON. CALL LGITH WITHIN REACH. WILL CONTINUE TO MONITOR.
[2019-10-11 20:12] VITALS: BP 139/80
--- NOTE | 2019-10-11 21:30 | NUR ---
PATIENT AWAKE PLACED ON BED FORMAN. PATIENT HAD NO BM OR VOID. PATIENT TRAY SETUP & FOOD CUTUP. TRAY CLOSE, PATIENT BEGAN EATING. WILL RETURN TO CLEAN PATIENT UP FOR BED REST. BED LOW. ALARM ON. WILL CONTINUE TO MONITOR.
--- NOTE | 2019-10-11 22:00 | NUR ---
PATIENT TRAY REMOVED. PATIENT HANDS CLEANED. PATIENT AT SOFT BM ON PAD. PATIENT CLEANED & BEDDING CHANGED. PATIENT BLOUSE REMOVED & GOWN PUT ON. PATIENT 02 @2LNC CONTINUES. PATIENT COMFORTABLE. BED LOW. CALL LIGHT WITHIN REACH. WILL CONTINUE TO MONITOR.
--- NOTE | 2019-10-12 03:02 | NUR ---
I have reviewed this patient and I concur with the Shift Assessment completed by the Licensed Practical Nurse today this shift.
[2019-10-12 08:00] VITALS: BP 133/71
--- NOTE | 2019-10-12 08:00 | NUR ---
SHIFT ASSMT COMPLETED.
[2019-10-12 20:00] VITALS: BP 138/72
--- NOTE | 2019-10-13 01:46 | NUR ---
SITTING UP IN BED RESTING WITH EYES CLOSED. NO SIGNS OR SYMPTOMS OF DISTRESS. RESPIRATIONS EVEN AND UNLABORED. PT IS ON 2L OF NASAL CANULA. BOWELL SOUNDS ACTIVE x4. PT IS UNABLE TO STATE WHEN LAST BOWELL MOVEMENT WAS. ABDOMEN IS FLAT AND SOFT TO PALPATIONS. INCONTINENT OF BOWELL AND BLADDER. VOID x2 CONFUSED AT TIMES. PT TALKS IN HER SLEEP. PT IS ENCOURAGED TO CALL FOR HELP WHEN NEEDED. BED IN LOWEST POSITION AND CALL LIGHT IS WITHIN REACH. WILL CONTINUE TO MONITOR.
--- NOTE | 2019-10-13 05:51 | NUR ---
PT REFUSED TO TAKE AM MEDICATION REPOSITIONED FOR COMFORT VOIDED x1 SMALL BM x1. CALL LIGHT WITHIN REACH AND BED LOWEST IN POSITION WILL CONTINUE TO MONITOR.
[2019-10-13 08:09] VITALS: BP 129/57
[2019-10-13] MEDS ORDERED: DONEPEZIL HCL10 MG PO (08:51)
[2019-10-13] MEDS ORDERED: SKELAXIN800 MG PO (08:51)
[2019-10-13] MEDS ORDERED: NAMENDA5 MG PO (08:52)
[2019-10-13] MEDS ORDERED: HYDROCODON-ACE1 EA10 PO (08:52)
--- NOTE | 2019-10-13 20:00 | NUR ---
PATIENT RECIEVED SITTING UP IN BED. ASSESSMENT & VITAL SIGNS DONE. PATIENT HAD TO BE AWAKENED BY CALLING HER NAME. BED LOW. ALARM ON. CALL LIGHT WITHIN REACH. WILL CONTINUE TO MONITOR.
[2019-10-13 20:13] VITALS: BP 122/65
--- NOTE | 2019-10-13 23:51 | NUR ---
PATIENT GIVEN MEDICATIONS IN APPLESAUCE A FEW AT A TIME. PATIENT HAD TO BE AWAKENED EACH TIME. PATIENT METAXALONE & DOXYLAMINE HELD D/T SEDATION. ALARM ON. BED LOW. CALL LIGHT WITHIN REACH. WILL CONTINUE TO MONITOR.
--- NOTE | 2019-10-14 01:44 | NUR ---
PATIENT EYES CLOSED. RESPIRATIONS 18 & EVEN. PATIENT ABLE TO SAY "YES" PATIENT ABLE TO SUCK STRAW & DRINK WATER. BED LOW. ALARM ON. WILL CONTINUE TO MONITOR.
[2019-10-14 01:46] VITALS: BP 134/66
--- NOTE | 2019-10-14 02:35 | NUR ---
PATIENT EYES CLOSED. RESPIRATIONS 18. PATIENT ASKED "DO YOU NEED A DRINK." PATIENT SUCKED STRAW & DRANK. PATIENT WENT BACK TO SLEEP. BED LOW. ALARM ON. CALL LIGHT WITHIN REACH. WILL CONTINUE TO MONITOR.
--- NOTE | 2019-10-14 03:37 | NUR ---
I have reviewed this patient and I concur with the Shift Assessment completed by the Licensed Practical Nurse today this shift.
--- NOTE | 2019-10-14 04:45 | NUR ---
PATIENT HAD SMALL BM & VOID IN PAD. PATIENT CLEANED & CALMOSEPTINE APPLIED TO BUTTOCKS. BED LOW. ALARM ON. CALL LIGHT WITHIN REACH. WILL CONTINUE TO MONITOR.
[2019-10-14 08:21] VITALS: BP 127/63
--- NOTE | 2019-10-14 13:00 | NUR ---
SHE IS MORE LETHARGIC THAN THIS MORNING. BRIEFLY OPENS EYES AT TIMES WITH LOUD VERBAL STIMULATION. DOES NOT FOLLOW COMMANDS. FSBS 95, VS 132/64, HR 64, 97% ON 2LNC. TWO DAUGHTERS AT BEDSIDE. SHE IS INCONT OF B/B. DR HAY NOTIFIED.
[2019-10-14 13:29] LABS: BASOPHILS 0.3 % (0-2); EOSINOPHILS 1.6 % (0-7); HEMOGLOBIN 12.2 g/dL (12-16); IMMATURE GRANULOCYTES 0.3 % (0-5); LYMPHOCYTES 25.4 % (15-50); MCHC 31.3 g/dL (31.0-37.0); MCV 99.2 fL (80.0-100.0); MONOCYTES 12.1 % (2-11); NEUTROPHILS 60.3 % (40-80); PLATELET COUNT 205 10x3/uL (130-400); RBC 3.93 10x6/uL (4.00-5.40); RDW 13.9 % (11.5-14.5); WBC 6.5 10x3/uL (4.8-10.8)
--- NOTE | 2019-10-14 13:33 | NUR ---
NUTRITION FOLLOW UP INTERVIEW: Met with patient this morning. Family in the room. Her family stated that she has not been having a good appetite. The family stated that patient requires feeding assistance during meals. Patient refuses nutritional supplements. DIET: Diabetic Diet-Chopped Meats w/ [employer] PO INTAKE: 47% avg x 9 meals WT: 250 lbs on Sep 26 BM: x 1 (10/14) SIG LABS: No new nutrition-related labs since 10/10 SIG MEDS: [place], KCl, Lasix, Vit D, Metformin, Zofran GOALS: PO intake >/= 65%, BM q 3 days, stable dry weight DHS, Encourage PO intake Clinical Dietitian to continue following and monitoring patient DHS.
[2019-10-14 13:52] LABS: ANION GAP 7.4 mmol/L (8-16); CALCIUM 8.4 mg/dL (8.5-10.1); CREATININE - SERUM 0.8 mg/dL (0.6-1.3)
[2019-10-14 13:54] LABS: CARBON DIOXIDE 40.6 mmol/L (21.0-32.0)
[2019-10-14 14:46] LABS: APPEARANCE CLEAR (CLEAR); BILIRUBIN NEGATIVE (NEGATIVE); COLOR YELLOW (YELLOW); GLUCOSE NEGATIVE (NEGATIVE); KETONE NEGATIVE (NEGATIVE); NITRITE NEGATIVE (NEGATIVE); PROTEIN NEGATIVE (NEGATIVE); SPECIFIC GRAVITY 1.015 (1.005-1.020); UROBILINOGEN NORMAL (NORMAL)
--- NOTE | 2019-10-14 15:00 | NUR ---
DR HAY NOTIFIED OF LAB RESULTS AND CT RESULTS. HE SAID TO KEEP PT ON REHAB UNIT FOR NOW LONG V/S ARE STABLE. FAMILY NOTIFIED.
[2019-10-14 20:00] VITALS: BP 135/67
--- NOTE | 2019-10-14 20:00 | NUR ---
PATIENT RECEIVED SITTING UP IN BED. PATIENT LETHARGIC. ASSESSMENT & VITAL SIGNS DONE. PATIENT DID NOT ATTEMPT TO OPEN EYES WHEN SPOKEN TO. BED LOW. ALARM ON. CALL LIGHT WITHIN REACH. WILL CONTINUE TO MONITOR.
--- NOTE | 2019-10-14 22:39 | NUR ---
PATIENT DRY. OFFERED WATER. PATIENT EYES CLOSED. RESPIRATIONS 18. VITAL SIGNS WITHIN NORMAL LIMITS. WILL CONTINUE TO OFFER WATER. BED LOW. ALARM ON. CALL LIGHT WITHIN REACH. WILL CONTINUE TO MONITOR.
--- NOTE | 2019-10-15 01:45 | NUR ---
I have reviewed this patient and I concur with the Shift Assessment completed by the Licensed Practical Nurse today this shift.
--- NOTE | 2019-10-15 02:02 | NUR ---
PATIENT CHECKED & WAS LAYED FLAT IN BED TO CHANGE HER WET BRIEF. PATIENT WOKE UP & SAID "NO NO." PATIENT WAS TOLD "WE NEED TO CHANGE HER." PATIENT WAS CHANGED & TOLD THIS NURSE & CHARGE NURSE "I WANT TO GO BE WITH MY ." PATIENT DOES NOT DNR PAPERS SIGNED. WILL HAVE CHARGE NURSE ON DAYS TALK WITH PATIENT & FAMILY WHEN THEY VISIT ABOUT PATIENT REQUEST. PATIENT DRANK WATER. MADE COMFORTABLE. TURNED TO HER RIGHT. BED LOW. ALARM ON. CALL LIGHT WITHIN REACH. WILL CONTINUE TO MONITOR.
[2019-10-15 08:23] VITALS: BP 146/58
--- NOTE | 2019-10-15 18:01 | NUR ---
DTR VISITING AND FEEDING PT SUPPER.
--- NOTE | 2019-10-15 19:25 | NUR ---
PT SITTING UP IN BED. CL IN REACH. PT A/O X4 CONFUSED AT TIMES AND FORGETFUL. DENIES NEEDS OR PAIN AT THIS TIME. BED IN LOW SIDE RAILS X2. BED ALARM ON. PT CAN BE INCONT AT TIMES. O2 ON 2L VIA NC. RESP EVEN AND UNLABORED. LUNGS CLEAR. BOWEL ACTIVE X4. LIDYA CONTINUE TO MONITOR.
[2019-10-15 21:02] VITALS: BP 126/61
--- NOTE | 2019-10-16 00:15 | NUR ---
I have reviewed this patient and I concur with the Shift Assessment completed by the Licensed Practical Nurse today this shift.
[2019-10-16 07:38] VITALS: BP 136/71
--- NOTE | 2019-10-16 13:03 | NUR ---
SITTING UP IN BED FOR LUNCH. FED LUNCH BY STAFF. TREMORS TO HEAD AND BUE. IS ALERT AND ORIENTED X4. CALL LIGHT IN REACH
--- NOTE | 2019-10-16 16:55 | NUR ---
DTR VISITING WITH HER AT PRESENT. IS INCONT OF BOWEL AND BLADDER.
--- NOTE | 2019-10-16 18:09 | NUR ---
C/O LEFT FOOT PAIN. PAIN MEDS GIVEN ORDERED. DTR REPORTS PT HAS HAD FOOT PAIN FOR A LONG TIME AND IT GETS WORSE THEN BETTER THEN WORSE THEN BETTER......CALL LIGHT IN REACH
--- NOTE | 2019-10-16 19:25 | NUR ---
PT LYING IN BED RESTING QUIETLY. EYES CLOSED. NO DISTRESS NOTED. O2 ON 2L VIA NC. BED IN LOW SIDE RAILS X2. RESP EVEN AND UNLABORED. LUNGS DIMINISHED. BOWEL ACTIVE X4. A/O X4 WITH SOME CONFUSION AND FORGETFULNESS. WILL CONTINUE TO MONITOR.
[2019-10-16 20:04] VITALS: BP 123/64
--- NOTE | 2019-10-16 22:34 | NUR ---
ATTEMPTED TO WAKE PATIENT WITH VERBAL STIMULI AND STERNAL RUB. PT OPENED EYES FOR A SECOND THEN CLOSED THEM AGAIN. ATTEMPTED TO WAKE PT AGAIN AND PT CONTINUED TO LAY THERE AND WITH NO RESPONSE. STERNAL RUB ATTEMPTED AGAIN AND PT STATED "IM AWAKE" AND CLOSED EYES AGAIN. PT REFUSED TO OPEN MOUTH FOR MEDICATION. ATTEMPTED TO WAKE PT WITH ANOTHER NURSE PT STILL REFUSING TO WAKE. WILL LEAVE NOTE FOR DOCTOR IN AM. VITALS WNL. PT HAS DONE THIS IN THE PAST AND WAS TESTED FOR EVERYTHING AND EVERYTHING CAME BACK NORMAL. PT SCARED TO DISCHARGE TO [facility] AND HAS VOICED THAT IN THE PAST COUPLE DAYS. WILL CONTINUE TO MONITOR.
--- NOTE | 2019-10-17 01:25 | NUR ---
I have reviewed this patient and I concur with the Shift Assessment completed by the Licensed Practical Nurse today this shift.
--- NOTE | 2019-10-17 02:00 | NUR ---
pt resting queitly. cl in reach. no distress noted. wctm
--- NOTE | 2019-10-17 05:40 | NUR ---
CHANGED AND CLEANED PT DUE TO INCONTINENCE. PT DENIES NEEDS AT THIS TIME. BED IN LOW SIDE RAILS X2. CL IN REACH WCTM
[2019-10-17 07:58] VITALS: BP 153/71
--- NOTE | 2019-10-17 11:02 | NUR ---
SITTING UP IN BED. ATE MOST OF BREAKFAST. IS COOPERATIVE WITH SIMPLE REQUESTS. INCONT OF BOWEL AND BLADDER. C/O RT FOOT PAIN. CALL LIGHT IN REACH
--- NOTE | 2019-10-17 14:00 | NUR ---
SITTING UP IN BED RESTING QUIETLY, EYES CLOSED. WAS FED LUNCH BY STAFF. NO S/S DISTRESS OR PAIN. CALL LIGHT IN REACH
--- NOTE | 2019-10-17 19:40 | NUR ---
BEDSIDE REPORT COMPLETE. PT RECEIVED SITTING UP IN BED VISITING WITH FAMILY. FAMILY VOICED CONCERNS IN REGARDS TO PT COUGHING AND RUNNING FEVER. WOULD LIKE FOR US TO CHECK FOR FLU. LUNGS ARE SLIGHTLY DIMINSHED NEG FOR WHEEZES OR CRACKLES. VS STABLE. SHIFT ASSESSMENT COMPLETE. CL IN REACH. FALL PRECAUTIONS IN PLACE. WILL CONTINUE TO MONITOR
[2019-10-17 19:54] VITALS: BP 144/74
--- NOTE | 2019-10-18 02:12 | NUR ---
PT LYING IN BED SUPINE EYES CLOSED RESTING COMFORTABLY. HOB 35 DEGREES. RR EVEN AND UNLABORED. CONTINUES ON 2L VIA NC. CL IN REACH
--- NOTE | 2019-10-18 04:26 | NUR ---
PT LYING IN BED EYES CLOSED RESTING COMFORTABLY. HOB 30 DEGREES. CL IN REACH
[2019-10-18 08:43] VITALS: BP 128/58
--- NOTE | 2019-10-18 19:19 | NUR ---
PT SITTING UP IN BED. CL IN REACH. PT DENIES NEEDS OR PAIN AT THIS TIME. BED IN LOW SIDE RAILS X2. LUNGS CLEAR. BOWEL ACTIVE X4. O2 ON 2L VIA NC. RESP EVEN AND UNLABORED. PT FORGETFUL AT TIMES. INCONT OF URINE AND BOWEL. WILL CONTINUE TO MONITOR.
[2019-10-18 21:15] VITALS: BP 131/72
--- NOTE | 2019-10-18 22:30 | NUR ---
CHANGED PT DUE TO INCONTINENCE. PT DENIES NEEDS AT THIS TIME. CL IN REACH. WILL CONTINUE TO MONITOR.
--- NOTE | 2019-10-19 01:03 | NUR ---
I have reviewed this patient and I concur with the Shift Assessment completed by the Licensed Practical Nurse today this shift.
--- NOTE | 2019-10-19 02:00 | NUR ---
PT RESTING QUIETLY. CL IN REACH. NO DISTRESS NOTED. EYES CLOSED. WCTM
--- NOTE | 2019-10-19 06:41 | NUR ---
CHECKED AND PT WAS DRY NO INCONT. CL IN REACH. PT RESTING QUIETLY. WCTM
[2019-10-19 08:00] VITALS: BP 142/70
--- NOTE | 2019-10-19 14:02 | NUR ---
CARE TEAM MEETING: PATIENT WILL DISCHARGE TO [facility] WHEN [facility] APPROVED. WILL CONTINUE TO FOLLOW WITH PATIENT.
--- NOTE | 2019-10-19 15:03 | NUR ---
Nutrition Follow-up: Diet: Diabetic Chopped Meats, finger foods PO intake: ~39% average x last 9 meals; she does not want oral nutrition supplements Last BM: 10/16/19 x 2. WT: 250# (09/26/19)-- no new wt Meds noted: lasix, metformin. No new labs. Need new weight. Recommend continue current diet. Encourage PO intake. May consider adding appetite stimulant if PO intake does not improve. RD following.
--- NOTE | 2019-10-19 16:00 | NUR ---
GABRIELA UP IN CHAIR TODAY.WILL CONT TO MONITOR.
--- NOTE | 2019-10-19 19:19 | NUR ---
PT SITTING UP IN BED ON RIGHT SIDE PILLOW UNDER LEFT SIDE. PT DENIES NEEDS OR PAIN AT THIS TIME. BED IN LOW SIDE RAILS X2. RESP EVEN AND UNLABORED. LUNGS CLEAR. BOWEL ACTIVE X4. BED ALARM ON. TOTAL ASSIST AND INCONT. OF URINE. WILL CONTINUE TO MONITOR.
[2019-10-19 20:54] VITALS: BP 136/63
--- NOTE | 2019-10-19 22:47 | NUR ---
I have reviewed this patient and I concur with the Shift Assessment completed by the Licensed Practical Nurse today this shift.
--- NOTE | 2019-10-20 01:45 | NUR ---
CHANGED PT DUE TO INCONTINENCE PT DENIES FURTHER NEEDS. CL IN REACH. WCTM
--- NOTE | 2019-10-20 06:17 | NUR ---
CHECKED PT AND PT WAS DRY. NO NEED FOR BED CHANGE. CL IN REACH. WCTM
[2019-10-20 08:00] VITALS: BP 141/72
--- NOTE | 2019-10-20 10:00 | NUR ---
SITTING UP IN BED TALKING TO ROOM MATE. DENIES NEEDS. CALL LIGHT IN REACH
--- NOTE | 2019-10-20 10:26 | NUR ---
recieved notice from corin and patient is non-pasrr and will discharge to [facility] via facility van. an appointment with will be made when patient discharges from facility. patient and family denies compare data as patient has been a client at [facility] before. patient choice form for snf has been signed and copy filed in chart and one given to patient. [facility] form has been explained, signed, filed in chart and one given to patient. discharge instructions has been faxed to pcp, snf and reviewed with patient. left message on daughter juan daniel phone about discharge.
--- NOTE | 2019-10-20 13:34 | NUR ---
CALLED REPORT TO MAXIMILIAN WASHBURN RN AT [facility]
--- NOTE | 2019-10-20 14:25 | NUR ---
LEFT WITH FAMILY HEADED TO NH.
== END 2019-10-20 14:26 | DRG 70 ==
LOC: D.REHAB 14:11
PROVIDERS: ADMIT Emergency Medicine; ATTEND Emergency Medicine
DX: G93.40 Encephalopathy, unspecified (principal); J96.22 Acute and chronic respiratory failure with hypercapnia; J96.21 Acute and chronic respiratory failure with hypoxia; J18.9 Pneumonia, unspecified organism; I50.23 Acute on chronic systolic (congestive) heart failure; J44.1 Chronic obstructive pulmonary disease with (acute) exacerbation; I25.10 Atherosclerotic heart disease of native coronary artery without angina pectoris; E03.9 Hypothyroidism, unspecified; E66.9 Obesity, unspecified; G47.33 Obstructive sleep apnea (adult) (pediatric); F41.8 Other specified anxiety disorders; R25.1 Tremor, unspecified; E87.6 Hypokalemia; E83.42 Hypomagnesemia; I11.0 Hypertensive heart disease with heart failure; E11.9 Type 2 diabetes mellitus without complications; D69.6 Thrombocytopenia, unspecified; M51.37 Other intervertebral disc degeneration, lumbosacral region